=== PATIENT | male | born 1940 | race Hispanic/Latino ===

== ENCOUNTER 2019-05-15 08:25 | Observation (INO) | payer MEDICARE ==
[2019-05-12 12:01] LABS: BASOPHILS % 0.5 % (0.0-1.0); EOSINOPHILS # (AUTO) 0.1 (0.0-0.4); EOSINOPHILS % 1.1 % (0.0-6.0); HEMATOCRIT 45.6 % (38.2-49.6); HEMOGLOBIN 15.2 g/dL (14.0-18.0); LYMPHOCYTES # (AUTO) 1.8 (1.0-3.2); MEAN CORPUSCULAR HEMOGLOBIN 30.6 pg (28-32); MEAN CORPUSCULAR HGB CONC 33.3 g/dL (31-35); MEAN CORPUSCULAR VOLUME 91.9 fL (81-99); MONOCYTES # (AUTO) 0.9 (0.2-0.8); MONOCYTES % 10.3 % (4.4-11.3); NEUTROPHILS # (AUTO) 5.9 (2.1-6.9); NEUTROPHILS % 66.9 % (38.7-80.0); PLATELET COUNT 221 x10e3/uL (140-360); RED BLOOD COUNT 4.96 x10e6/uL (4.3-5.7); RED CELL DISTRIBUTION WIDTH 13.8 % (11.7-14.4)
--- NOTE | 2019-05-12 12:34 | Diagnostic Imaging Report ---
EXAM: CHEST 2 VIEWS DATE: 05/12/2019 11:43 AM INDICATION: Preoperative evaluation COMPARISON: None FINDINGS: The trachea is midline. The lungs are symmetrically expanded without evidence for large focal consolidation, pneumothorax, or significant pleural effusion. The cardiomediastinal silhouette and pulmonary vasculature are within normal limits. Degenerative changes noted of the visualized spine and shoulders. No acute osseous abnormality is identified. IMPRESSION: No acute cardio prominent process identified. Signed by: Dr. Onur Wei MD on 05/12/2019 12:31 PM
[~2019-05-15] VITALS: Ht 162.6 cm; Wt 67.1 kg
[~2019-05-15 08:25] MED LIST: CENTRUM SILVER1 EAC3 PO; FLOMAX0.4 MG PO; MYRBETRIQ50 MG PO; NORCO 5-325 TA1 EACH PO
--- OUTSIDE RECORDS SUMMARY | 2019-05-15 08:28 | XMS REPORT ---
Author Author [facility] Address Unknown Phone Unavailable Care Team Providers Care Sulfonator Operator Name Role Phone MARICHUY REYNOSO Unavailable Unavailable Problems This patient has no known problems. Allergies, Adverse Reactions, Alerts This patient has no known allergies or adverse reactions. Medications This patient has no known medications. Results Test Description Test Time Test Comments Text Results Atomic Results Result Comments CHEST 2 VIEWS 2019-05-12 12:30:00 [place] [address] Patient Name: SHENA ENAMORADO MR #: [id number] : 1940 Age/Sex: 79/M Req #: [id number] Adm Physician: Ordered by: MARICHUY REYNOSO MD Report #: [id number] Location: OR Room/Bed: Procedure: [id number] DX/CHEST 2 VIEWS Exam Date: 05/12/19 Exam Time: 1200 REPORT STATUS: Signed EXAM: CHEST 2 VIEWS DATE: 05/12/2019 11:43 AM INDICATION: Preoperative evaluation COMPARISON: None FINDINGS: The trachea is midline. The lungs are symmetrically expanded without evidence for large focal consolidation, pneumothorax, or significant pleural effusion. The cardiomediastinal silhouette and pulmonary vasculature are within normal limits. Degenerative changes noted of the visualized spine and shoulders. No acute osseous abnormality is identified. IMPRESSION: No acute cardio prominent process identified. Signed by: Dr. Onur Mahan MD on 05/12/2019 12:31 PM Dictated By: ONUR MAHAN MD [id number] Transcribed By: ANDRÉS on 05/12/19 1231 COPY TO: MARICHUY REYNOSO MD
[2019-05-15] MEDS ORDERED: GENTAMICIN 80MG/NS 100 ML 200 ML IV ONE (08:51)
[2019-05-15] MEDS ORDERED: SODIUM CHLORIDE 0.9% 1000ML 1,000 ML ONE (08:51)
[2019-05-15] MEDS ORDERED: CEFTRIAXONE SOD 1 GM/NS 50 ML 50 ML IV ONE (08:51)
[2019-05-15] MEDS ORDERED: FENTANYL CITRATE/PF 100MCG/2 ML INJ ONE (10:25)
[2019-05-15] MEDS ORDERED: MIDAZOLAM HCL 2 MG/2 ML VIAL ONE (10:25)
[2019-05-15] MEDS ORDERED: B&O 60MG R/S 60 MG SUPP PR ONE (10:49)
[2019-05-15] MEDS ORDERED: IOPAMIDOL 610MG/1ML 300 MG/ML VIAL IV ONE (10:50)
[2019-05-15] MEDS ORDERED: SEVOFLURANE INHAL SOLN 250 ML PEN BTL ONE (11:33)
[2019-05-15] MEDS ORDERED: LIDOCAINE HCL 2% LOCAL INJ 5 ML SDV VIAL INJ ONE (11:33)
[2019-05-15] MEDS ORDERED: DEXAMETHASONE SOD PHOS INJ 4 MG/ML VIAL ONE (11:33)
[2019-05-15] MEDS ORDERED: ONDANSETRON HCL INJ 2MG/ML 2ML 2 MG/ML VIAL ONE (11:33)
[2019-05-15] MEDS ORDERED: PROPOFOL IV EMULSION 10 MG/ML 20 ML VIAL ONE (11:33)
[2019-05-15] MEDS ORDERED: IOTHALAMATE MEGLUMINE 17.20% 250 ML BTL ONE (11:50)
[2019-05-15] MEDS ORDERED: DIPHENHYDRAMINE HCL 25 MG CAP PO PRN (13:00)
[2019-05-15] MEDS ORDERED: ACETAMINOPHEN/CODEINE 300MG - 30MG TAB PO PRN (13:00)
[2019-05-15] MEDS ORDERED: ONDANSETRON HCL INJ 2MG/ML 2ML 2 MG/ML VIAL IV PRN (13:00)
[2019-05-15] MEDS ORDERED: B&O 60MG R/S 60 MG SUPP PR PRN (13:00)
[2019-05-15] MEDS ORDERED: ACETAMINOPHEN 1000 MG/100 ML IV PRN (13:00)
[2019-05-15 14:15] VITALS: BP 155/72
[2019-05-15 14:37] LABS: BASOPHILS # (AUTO) 0.1 (0.0-0.1); BASOPHILS % 0.9 % (0.0-1.0); EOSINOPHILS # (AUTO) 0.1 (0.0-0.4); EOSINOPHILS % 1.9 % (0.0-6.0); HEMATOCRIT 47.3 % (38.2-49.6); HEMOGLOBIN 15.7 g/dL (14.0-18.0); LYMPHOCYTES # (AUTO) 2.2 (1.0-3.2); LYMPHOCYTES % 37.5 % (18.0-39.1); MEAN CORPUSCULAR HGB CONC 33.2 g/dL (31-35); MEAN CORPUSCULAR VOLUME 93.3 fL (81-99); MONOCYTES # (AUTO) 0.7 (0.2-0.8); MONOCYTES % 11.2 % (4.4-11.3); NEUTROPHILS # (AUTO) 2.8 (2.1-6.9); NEUTROPHILS % 48.3 % (38.7-80.0); PLATELET COUNT 206 x10e3/uL (140-360); RED BLOOD COUNT 5.07 x10e6/uL (4.3-5.7); RED CELL DISTRIBUTION WIDTH 13.6 % (11.7-14.4)
--- NOTE | 2019-05-15 14:39 | NUR ---
Received patient from PACU, s/p C/S with TURP and plasma button, bladder neck resection, Decker with CBI in place running, pinkish urine, a/ox3, IV line in place and fluids running. Call light within reach, denies any pains, bed in low locked position.
[2019-05-15 14:41] VITALS: BP 155/72
[2019-05-15 14:49] LABS: ANION GAP 10.3 mmol/L (8-16); BLOOD UREA NITROGEN 11 mg/dL (7-26); BUN/CREATININE RATIO 10 (6-25); CALCIUM 9.6 mg/dL (8.4-10.2); CARBON DIOXIDE 25 mmol/L (22-29); CHLORIDE 107 mmol/L (98-107); CREATININE, SERUM 1.05 mg/dL (0.72-1.25); EST GLOMERULAR FILTRATION RATE > 60 ML/MIN (60-); GLUCOSE 80 mg/dL (74-118); POTASSIUM 4.3 mmol/L (3.5-5.1); SODIUM 138 mmol/L (136-145)
[2019-05-15] MEDS: D5.45%NS/KCL 20MEQ 1,000 ML IV SCH ×2 (15:02→23:30)
[2019-05-15 16:00] VITALS: BP 142/86
[2019-05-15] MEDS: DOCUSATE SODIUM 100 MG CAP PO SCH (17:05)
[2019-05-15] MEDS: PHENAZOPYRIDINE HCL 100 MG TAB PO SCH (17:05)
[2019-05-15 20:00] VITALS: BP 120/79
[2019-05-15 21:30] VITALS: BP 120/79
--- NOTE | 2019-05-15 21:30 | NUR ---
PATIENT RESTING IN BED IN STABLE CONDITION, NO SIGNS OF DISTRESS NOTED. CBI IS IN PLACE AND BEING MONITORED CLOSELY, URINE IS YELLOW IN COLOR. PATIENT VOICES NO PAIN AT THIS TIME AND IV FLUIDS ARE RUNNING AT ORDERED RATE. BED IS IN LOWEST POSITION, BOTH SIDE RAILS ARE UP, CALL LIGHT IS WITHIN EASY REACH, WILL CONTINUE TO MONITOR.
[2019-05-16] VITALS: BP 147/89
[2019-05-16 03:39] VITALS: BP 133/80
[2019-05-16 06:30] LABS: BASOPHILS % 0.6 % (0.0-1.0); EOSINOPHILS # (AUTO) 0.2 (0.0-0.4); EOSINOPHILS % 2.2 % (0.0-6.0); HEMATOCRIT 44.2 % (38.2-49.6); HEMOGLOBIN 14.3 g/dL (14.0-18.0); LYMPHOCYTES # (AUTO) 1.4 (1.0-3.2); MEAN CORPUSCULAR HEMOGLOBIN 30.6 pg (28-32); MEAN CORPUSCULAR HGB CONC 32.4 g/dL (31-35); MEAN CORPUSCULAR VOLUME 94.6 fL (81-99); MONOCYTES # (AUTO) 0.8 (0.2-0.8); MONOCYTES % 10.8 % (4.4-11.3); NEUTROPHILS # (AUTO) 4.9 (2.1-6.9); NEUTROPHILS % 67.1 % (38.7-80.0); PLATELET COUNT 190 x10e3/uL (140-360); RED BLOOD COUNT 4.67 x10e6/uL (4.3-5.7); RED CELL DISTRIBUTION WIDTH 13.9 % (11.7-14.4)
[2019-05-16 06:45] LABS: ANION GAP 10.3 mmol/L (8-16); BLOOD UREA NITROGEN 10 mg/dL (7-26); BUN/CREATININE RATIO 11 (6-25); CALCIUM 8.9 mg/dL (8.4-10.2); CARBON DIOXIDE 25 mmol/L (22-29); CHLORIDE 105 mmol/L (98-107); EST GLOMERULAR FILTRATION RATE > 60 ML/MIN (60-); GLUCOSE 103 mg/dL (74-118); POTASSIUM 4.3 mmol/L (3.5-5.1); SODIUM 136 mmol/L (136-145)
[2019-05-16 07:51] VITALS: BP 155/68
[2019-05-16] MEDS: DOCUSATE SODIUM 100 MG CAP PO SCH ×2 (08:56→17:00)
[2019-05-16] MEDS: PHENAZOPYRIDINE HCL 100 MG TAB PO SCH ×3 (08:56→18:00)
--- NOTE | 2019-05-16 10:52 | NUR ---
H&P cc: urinary discomfort HPI: 79yoM, PCP Dr.C. Jeffery, developed urinary discomfort related to BPH, here for elective procedure on prostate, undertaken by . Now recovering with langley in place. PMH: B/L incarcerated inguinal hernia s/p repair, BPH PSHx: incarcerated hernia 2011, prostate? Allergies; see emr Fh/SH; single; no cigs meds see mAR ROS; no f/c/s/N/V/D/ARRIOLA/cp/sob/skin rash/back pain/dizziness/confusion v/s; revd PE tired appearing aniceric ns1s2; 3/6 systolic murmur soft nt nd Langley in place no e/t skin dry flat affect a&ox3; martinez labs/meds revd A/P: UTI- IV ceftriaxone BPH- s/p cystoscopy and TURP? flomax Prop: scd DIspo: d/c planning; Ferdinand Jj MD, PhD.
[2019-05-16] MEDS ORDERED: CEFTRIAXONE SOD 1 GM/NS 50 ML 50 ML IV SCH (11:00)
[2019-05-16] MEDS ORDERED: TAMSULOSIN HCL 0.4 MG CAP PO SCH (11:00)
--- NOTE | 2019-05-16 11:30 | NUR ---
DR REYNOSO STOPPED CBI.
[2019-05-16 11:31] VITALS: BP 158/81
[2019-05-16 15:37] VITALS: BP 133/84
--- NOTE | 2019-05-16 17:30 | NUR ---
DR KING HERE TO SEE PT AND DISCHARGE.
--- NOTE | 2019-05-16 18:36 | NUR ---
PT DISCHARGE HOME, PT WAS GIVEN HIS PRESCRIPTION, AND HE WAS EDUCATED ON HIS MEDICATION AND WAS ASKED TO FOLLOW UP WITH HIS PCP, AND UROLOGIST. IV SITE REMOVED, NO SWELLING NO REDNESS TO SITE.
--- NOTE | 2019-05-17 04:51 | NUR ---
D/C summary Principal Dx: UTI- IV ceftriaxone BPH- s/p cystoscopy and TURP? flomax Secondary Dx: Prop: scd DIspo: d/c planning; d./c home with langley f/u pcp 1 week and 2 weeks stable d/c>35mins Ferdinand Jj MD, PhD.
== END 2019-05-16 18:35 | disposition home or self-care (01) ==
LOC: OR 08:25 → INTOOBSV 12:52 → PACU V 12:52 → MED/SURG 13:52
PROVIDERS: ADMIT Internal Medicine; ATTEND Internal Medicine
DX: N40.0 Benign prostatic hyperplasia without lower urinary tract symptoms (principal); N39.0 Urinary tract infection, site not specified
CPT/HCPCS: 36415 ×3; 71046; 74420; 80048 ×2; 83735; 85025 ×3; 87086; 88305; 93005; C1758; G0378 ×2; J0696 ×2; J1100; J1580; J2001; J2250; J2405; J2704; J3010; J7030; Q9958; Q9967

== ENCOUNTER 2019-08-16 16:10 | Inpatient (IN) | payer MEDICARE, OTHER ==
[~2019-08-16] VITALS: Ht 162.6 cm; Wt 69.1 kg
--- OUTSIDE RECORDS SUMMARY | 2019-08-16 16:14 | XMS REPORT | Summary of Care ---
Author Author [facility] Organization [facility] Address Unknown Phone Unavailable Encounter MONICO Jefferson(PRINCESS) [id number] Date(s): 11/16/15 - 11/16/15 [facility] [address] [place] [address]- Discharge Disposition: Home or Self Care Attending Physician: Karan Casey MD Admitting Physician: Karan Casey MD Referring Physician: Niko Mcgarry MD Vital Signs 1 2 3 Most recent to oldest [Reference Range]: 162.56 cm (11/16/15 3:45 AM) Height 97.2 DegF (11/16/15 12:00 PM) 97.7 DegF (11/16/15 8:00 AM) 97.6 DegF (11/16/15 3:08 AM) Temperature Oral [96.4-99.1 DegF] 140/77 mmHg (11/16/15 12:00 PM) 134/73 mmHg (11/16/15 8:00 AM) 145/77 mmHg *HI* (11/16/15 3:08 AM) Blood Pressure [90-140/60-90 mmHg] 16 BRMIN (11/16/15 12:00 PM) 16 BRMIN (11/16/15 8:00 AM) 16 BRMIN (11/16/15 3:08 AM) Respiratory Rate [14-20 BRMIN] 79 bpm (11/16/15 12:00 PM) 75 bpm (11/16/15 8:00 AM) 73 bpm (11/16/15 3:08 AM) Peripheral Pulse Rate [60-100 bpm] 62.955 kg (11/16/15 3:45 AM) Weight 23.82 m2 (11/16/15 3:45 AM) Body Mass Index Problem List Condition Effective Dates Status Health Status Informan t Hernia, Resolved inguinal(Confirmed) Nocturia(Confirmed) Resolved Urinary Active frequency(Confirmed) Allergies, Adverse Reactions, Alerts Substance Reaction Severity Status NKDA Active Medications acetaminophen 650 mg, 2 tab, Route: PO, Drug form: TAB, Q4H, Dosing Weight 62.955, kg, PRN Abbey n 1-3/Temp > 100.4 F, Start date: 11/16/15 4:45:00 CDT, Duration: 30 day, Stop date: 12/16/15 4:44:00 CDT Notes: Do not exceed 4 gm/day. (Same as: Tylenol) Start Date: 11/16/15 Stop Date: 11/16/15 Status: Discontinued acetaminophen-hydrocodone 325 mg-5 mg oral tablet 2 tab, Route: PO, Drug Form: TAB, Dosing Weight 62.955, kg, Q4H, PRN Pain Score 7-10, Start date: 11/16/15 4:45:00 CDT, Duration: 30 day, Stop date: 12/16/15 4: 44:00 CDT Notes: (Same as: Beaver 325/5) Do not exceed 4gm/day of acetaminophen. Start Date: 11/16/15 Stop Date: 11/16/15 Status: Discontinued acetaminophen-hydrocodone 325 mg-5 mg oral tablet 1 tab, Route: PO, Drug Form: TAB, Dosing Weight 62.955, kg, Q4H, PRN Pain Score 4-6, Start date: 11/16/15 4:45:00 CDT, Duration: 30 day, Stop date: 12/16/15 4:4 4:00 CDT Notes: (Same as: Beaver 325/5) Do not exceed 4gm/day of acetaminophen. Start Date: 11/16/15 Stop Date: 11/16/15 Status: Discontinued Augmentin 875 mg oral tablet 875 mg = 1 tab, PO, Q12H, X 7 day, # 14 tab, 0 Refill(s) Start Date: 11/16/15 Stop Date: 11/23/15 Status: Ordered docusate 100 mg, 1 cap, Route: PO, Drug form: CAP, BID, Dosing Weight 62.955, kg, PRN Con stipation, Start date: 11/16/15 4:45:00 CDT, Duration: 30 day, Stop date: 4:44:00 CDT Notes: (Same as: Colace) (Do Not Crush) Start Date: 11/16/15 Stop Date: 11/16/15 Status: Discontinued finasteride 5 mg, 1 tab, Route: PO, Drug form: TAB, Daily, Dosing Weight 62.955, kg, Priorit y: STAT, Start date: 11/16/15 11:10:00 CDT, Duration: 30 day, Stop date: 6 9:00:00 CDT Notes: (Same as: Proscar) "Do Not Crush"Women of childbearing age should not tosha ch or handle broken tablets Start Date: 11/16/15 Stop Date: 11/16/15 Status: Discontinued finasteride 5 mg, 1 tab, Route: PO, Drug form: TAB, Daily, Dosing Weight 62.955, kg, Start d ate: 11/17/15 9:00:00 CDT, Duration: 30 day, Stop date: 12/16/15 9:00:00 CDT Notes: (Same as: Proscar) "Do Not Crush"Women of childbearing age should not tosha ch or handle broken tablets Start Date: 11/17/15 Stop Date: 11/16/15 Status: Canceled finasteride 5 mg oral tablet 5 mg, PO, Daily, # 30 tab, 0 Refill(s) Start Date: 11/16/15 Stop Date: 12/16/15 Status: Ordered Flomax 0.4 mg oral capsule 0.4 mg = 1 cap, PO, Daily, # 30 cap, 0 Refill(s) Start Date: 11/16/15 Stop Date: 12/16/15 Status: Ordered Myrbetriq 50 mg, PO, Daily, 0 Refill(s) Start Date: 11/16/15 Stop Date: 11/16/15 Status: Discontinued ondansetron 4 mg, 2 mL, Route: IVP, Drug form: INJ, Q6H, Dosing Weight 62.955, kg, PRN Nause a & Vomiting, Start date: 11/16/15 4:45:00 CDT, Duration: 30 day, Stop date: 12/16/15 4:44:00 CDT Notes: (Same as: Zofran) MEDICATION WASTE Product Size: 4 mgProduct Was yady: ___ mg Start Date: 11/16/15 Stop Date: 11/16/15 Status: Discontinued Saline Flush 0.9% 10 ml, Route: IVP, Drug Form: INJ, Dosing Weight 62.955, kg, PRN, PRN Line Flush , Start date: 11/16/15 4:45:00 CDT, Duration: 30 day, Stop date: 12/16/15 4:44:0 0 CDT Notes: (Same as: BD Posiflush) Start Date: 11/16/15 Stop Date: 11/16/15 Status: Discontinued sodium chloride 0.9% 1000 ml INJ 1,000 mL 1,000 mL, Rate: 100 ml/hr, Infuse over: 10 hr, Route: IV, Dosing Weight 62.955 k g, Total Volume: 1,000, Start date: 11/16/15 5:07:00 CDT, Duration: 30 day, Stop date: 12/16/15 5:06:00 CDT Start Date: 11/16/15 Stop Date: 11/16/15 Status: Discontinued Theragran-M 1 tab, Route: PO, Drug Form: TAB, Dosing Weight 62.955, kg, Daily, STAT, Start d ate: 11/16/15 11:10:00 CDT, Duration: 30 day, Stop date: 12/16/15 9:00:00 CDT Notes: (Same as:Thera-M, Theragran-M)WASTE: F/P - Black; E - Municipal Trash Bin Give with food. Start Date: 11/16/15 Stop Date: 11/16/15 Status: Discontinued Theragran-M 1 tab, Route: PO, Drug Form: TAB, Dosing Weight 62.955, kg, Daily, Start date: 0 11/17/15 9:00:00 CDT, Duration: 30 day, Stop date: 12/16/15 9:00:00 CDT Notes: (Same as:Thera-M, Theragran-M)WASTE: F/P - Black; E - Municipal Trash Bin Give with food. Start Date: 11/17/15 Stop Date: 9/14/16 Status: Canceled Results ELECTROLYTES Most recent to 1 2 oldest [Reference Range]: Sodium Lvl [135-145 136 mEq/L mEq/L] (11/16/15 2:31 PM) Potassium Lvl 4.6 mEq/L [3.5-5.1 mEq/L] (11/16/15 2:31 PM) Chloride Lvl [95-109 105 mEq/L mEq/L] (11/16/15 2:31 PM) CO2 [24-32 mEq/L] 24 mEq/L (11/16/15 2:31 PM) AGAP [10.0-20.0 11.6 mEq/L mEq/L] (11/16/15 2:31 PM) CHEM PANEL Most recent to 1 2 oldest [Reference Range]: Creatinine Lvl 1.43 mg/dL 1.65 mg/dL [0.50-1.40 mg/dL] *HI* *HI* (11/16/15 2:31 PM) (11/16/15 8:01 AM) eGFR 48 mL/min/1.73m2 1 40 mL/min/1.73m2 2 *NA* *NA* (11/16/15 2:31 PM) (11/16/15 8:01 AM) BUN [7-22 mg/dL] 31 mg/dL *HI* (11/16/15 2:31 PM) Glucose Lvl [70-99 117 mg/dL mg/dL] *HI* (11/16/15 2:31 PM) Calcium Lvl 8.7 mg/dL [8.5-10.5 mg/dL] (11/16/15 2:31 PM) 1Result Comment: The eGFR is calculated using the CKD-EPI formula. In most young, healthy individuals the eGFR will be >90 mL/min/1.73m2. The eGFR declines with age. An eGFR of 60-89 may be normal in some populations, particularly the elderly, for whom the CKD-EPI formula has not been extensively validated. Use of the eGFR is not recommended in the following populations: Individuals with unstable creatinine concentrations, including patients and those with serious co-morbid conditions. Patients with extremes in muscle mass or diet. The data above are obtained from the National Kidney Disease Education Program ( NKDEP) which additionally recommends that when the eGFR is used in patients with extremes of body mass index for purposes of drug dosing, the eGFR should be mul tiplied by the estimated BMI. 2Result Comment: The eGFR is calculated using the CKD-EPI formula. In most young, healthy individuals the eGFR will be >90 mL/min/1.73m2. The eGFR declines with age. An eGFR of 60-89 may be normal in some populations, particularly the elderly, for whom the CKD-EPI formula has not been extensively validated. Use of the eGFR is not recommended in the following populations: Individuals with unstable creatinine concentrations, including patients and those with serious co-morbid conditions. Patients with extremes in muscle mass or diet. The data above are obtained from the National Kidney Disease Education Program ( NKDEP) which additionally recommends that when the eGFR is used in patients with extremes of body mass index for purposes of drug dosing, the eGFR should be mul tiplied by the estimated BMI. HEMATOLOGY Most recent to 1 2 oldest [Reference Range]: Platelet [133-450 283 K/CMM K/CMM] (11/16/15 9:36 AM) PTT [22.9-35.8 29.8 seconds seconds] (11/16/15 9:36 AM) Immunizations No data available for this section Procedures Procedure Date Related Diagnosis Body Site Bilateral inguinal hernia repair1 Laser ablation of prostate 1with mesh Social History Social History Type Response Alcohol Never Smoking Status Never smoker; Exposure to T obacco Smoke None; Cigarette Smoking Last 365 Days No; Reg Smoking Cessation Counseli ng No Assessment and Plan Extracted from: Title: Clinical Document Author: Hi Lopez MD Da te: 11/16/15 D/c Dx urinary retention Obstruxitve uropathy R/o UTI Dispo Home F/u Dr Jenni Gilliam See recon Diet: Regualr diet 75 yr old came in with 3 days of decreas ed urianry strema and urinary retention. Admitted ehre for assistance in langley placement. Difficulty in insertion likley related to scarring Cr 1.7--> 1.4 with IVfs and langley placement Langley placed by F/u with Dr Arteaga Empiric abx started Extracted from: Title: Urology Author: Abner Berger MD Date: 11/16/15 Impression and Plan Acute urinary retention, bladder neck contracture - 18fr langley placed after urethral dilat ion - Continue langley as outpatient, OK to D/ C if Cr improves - Keep scheduled followup with Dr. Robin jc on 11/21 - Urine culture sent, treat if positive Extracted from: Title: Clinical Document Author: Niko Mcgarry MD Date: 11/16/15 PATIENT NAME: SHENA ENAMORADO ATTENDING PHYSICIAN: HEIDI CORDERO DATE OF ADMISSION: 11/16/15 * * * CC: URINARY RETENTION REASON FOR ADMISSION: URINARY RETENTION HISTORY OF PRESENT ILLNESS: 75 yo man with h/o BPH and urinary reten tion s/p laser vaporization of the prostate 02/10/15 presents from [facility] ED with urinary retention. Langley catheterization attempted at outside ED unsuccessful on 4 attempts. Urology consulted from outsided ED and advised to transfer to [facility] for urologic intervention. Creatinine obtained there was 1.65, reportedly increased from baseline. Transferring ED physician also noted pt has a resultant UTI. Dr Vicente Resendiz consulted, covering urology staff will see pt here at [facility]. PAST MEDICAL HISTORY: as per HPI. h/o UTI's. PAST SURGICAL HISTORY: bowel resection, laser vaporization of prostate FAMILY HISTORY: noncontributory ALLERGIES: Allergies (1) ActiveReaction NKDANone documented HOME MEDICATIONS: see medical reconciliation list SOCIAL HISTORY: no alcohol, drug use or smoking REVIEW OF SYSTEMS: 12 point review of systems negative except that detailed in above HPI PHYSICAL EXAMINATION: VitalsTmp(F)[id number] 11/15 03:0897.727906/7716------ 24 Hr Tmax: 97.6F (36.44c) at 11/15 03:0 8Vital Signs are the last 5 in the past 48 hours. I&ORecordInOutBal 24hr Tot 0 0 0 24hr Tot 0 0 0 GENERAL: in no apparent distress at this time. HEENT: EOMI NECK: supple, no jugular venous distention, no masses, no bruits CARDIOVASCULAR: regular rate and rhythm, s1 and s2 present, no murmurs, rubs or gallops LUNGS: clear to auscultation bilaterally, no wheezes, rales or rhonchi. GASTROINTESTINAL: soft, mild suprapubic tenderness to palpation, non-distended positive bowel sounds in all four quadrants, no fluid wave appreciated EXTREMITIES: no clubbing, cyanosis or edema, pulses 2+ bilaterally and symmetric. 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 URINARY RETENTION 2. YUE 3. UTI PLAN: 1. Urology consulted, will catheterize p t. pain control with po meds tolerated thus far. 2. recheck AM BMP, start IVF's after cat heter placed. Nephrology consultation if creatinine does not improve with IVF's 3. send urine for culture and administer rocephin 1g IV. admit i1
--- OUTSIDE RECORDS SUMMARY | 2019-08-16 16:14 | XMS REPORT | Summary of Care ---
Author Author [facility] ton Organization [facility] [place] Address Unknown Phone Unavailable Encounter MONICO Jefferson(PRINCESS) [id number] Date(s): 02/13/18 - 02/13/18 [facility] [place] [address] [place] [address]- Discharge Disposition: Home or Self Care Attending Physician: Dieudonne Marte MD Referring Physician: Praful Jeffery MD Vital Signs Most recent to 1 oldest [Reference Range]: Height 162.56 cm (02/13/18 10:25 AM) Blood Pressure 144/81 mmHg [90-140/60-90 mmHg] *HI* (02/13/18 10:25 AM) Peripheral Pulse 76 bpm Rate [60-100 bpm] (02/13/18 10:25 AM) Weight 71.023 kg (02/13/18 10:25 AM) Body Mass Index 26.88 m2 (02/13/18 10:25 AM) Problem List Condition Effective Dates Status Health Status Informan t Acute 11/24/13 Resolved sinusitis(Confirmed) Arthropathy, Resolved unspecified(Confirme d) BPH with Resolved obstruction/lower urinary tract symptoms(Confirmed) Bladder neck 12/23/15 Resolved obstruction(Confirme d) Hematuria(Confirmed) Resolved Cataract(Confirmed) Resolved Functional digestive Resolved disorder(Confirmed) Hernia, Resolved inguinal(Confirmed) Nocturia(Confirmed) Resolved Seasonal Resolved allergies(Confirmed) Urinary Active frequency(Confirmed) UTI (urinary tract Resolved infection)(Confirmed ) Allergies, Adverse Reactions, Alerts No Known Medication Allergies Medications Claritin Daily, 0 Refill(s) Start Date: 02/13/18 Status: Ordered Results No data available for this section Immunizations No data available for this section Procedures Procedure Date Related Diagnosis Body Site Status Complex uroflowmetry 05/08/16 Completed Cystoscopy 12/2015 Completed Bilateral inguinal hernia repair1 Completed Laser ablation of prostate Completed 1with mesh Social History Social History Type Response Substance Abuse Use: None. Alcohol Never Smoking Status Never smoker; Exposure to T obacco Smoke None; Cigarette Smoking Last 365 Days No; Reg Smoking Cessation Counseli ng No entered on: 08/28/18 Assessment and Plan No data available for this section
--- OUTSIDE RECORDS SUMMARY | 2019-08-16 16:14 | XMS REPORT | Summary of Care ---
Author Organization Unknown Address Unknown Phone Unavailable Encounter [facility] Encntr_alisteven(PRINCESS) [id number] Date(s): 03/12/14 - 03/12/14 [facility] Outpatient Imaging - [address] [address] [place] Discharge Disposition: Home Physician Attending: Praful Jeffery MD Reason for Visit 608.89 - MALE GENITAL DI Problem List No data available for this section Allergies, Adverse Reactions, Alerts No data available for this section Medications No data available for this section Medications Administered During Your Visit No data available for this section Immunizations No data available for this section
--- OUTSIDE RECORDS SUMMARY | 2019-08-16 16:14 | XMS REPORT | Continuity of Care Document ---
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 Name Role Phone PageFair Information Ensogo Unavailable Un available Problems Problem Status Onset Date Classification Date Reported Comments Source UNK Active 0 04/11/2016 [facility] Bladder neck obstruction (disorder) Resolved 12/23/2015 Problem 01/24/2019 [facility] URETHRAL OBSTRUCTION, KIDNEY STONE Active 11/16/2015 [facility] URINARY RETENTION Active 11/16/2015 [facility] Acute sinusitis (disorder) Res olved 11/24/2013 Problem 01/24/2019 [facility] Arthropathy (disorder) Resolved Problem 01/24/2019 [facility] 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) Resolved Pr oblem 01/24/2019 [facility] Blood in urine (finding) Resol gordon Problem [facility] Cataract (disorder) Resolved Problem 01/24/2019 [facility] Functional disorder of gastrointestinal tract (disorder) Resolved Pr oblem 01/24/2019 [facility] Hiatal hernia (disorder) Resol gordon [facility] [place] Nocturia (finding) Resolved Problem 01/24/2019 [facility] [place] Seasonal allergy (disorder) Re solved Problem [facility] Increased frequency of urination (finding) [facility] disease (disorder) Resolved Problem 01/24/2019 [facility] GROSS HEMATURIA Active [facility] ENLARGED PROSTATE WITH LOWER URINARY TRA Active [facility] CALCULUS OF KIDNEY Active [facility] RETENTION OF URINE, UNSPECIFIED Active [facility] Medications Medication Details Route Status Patient Instructions Ordering Provider Order Date Source 24 HR mirabegron 50 MG Extended Release Tablet [Myrbetriq] 50 mg = 1 tab, PO, Daily, # 90 tab, 3 Re fill(s), Pharmacy: [facility]/pharmacy #[id number] Active 03/03/2018 [facility] Claritin Daily, 0 Refill(s) Active 02/13/2018 [facility] glycopyrrolate (ANES) Route: I V, Drug form: INJ, ONCE, Stop date: 04/20/16 9:31:00 MACHINES TECHNICIAN Inactive 04/20/2016 [facility] neostigmine (ANES) Route: IV, Drug form: INJ, ONCE, Stop date: 04/20/16 9:31:00 MACHINES TECHNICIAN Inactive 04/20/2016 [facility] tramadol hydrochloride 50 MG Oral Tablet 50 mg = 1 tab, PO, Q6H, PRN Pain Score 4-6, X 7 day, # 30 tab, 0 Refill(s) Active 04/20/2016 [facility] Phenazopyridine hydrochloride 100 MG Ora l Tablet [Pyridium] 100 mg = 1 tab, PO, TID, PRN Dysuria, X 5 day, # 15 tab, 0 Refill(s) Active 04/20/2016 [facility] Hyoscyamine Sulfate 0.125 MG Sublingual Tablet [Levsin ] 0.125 mg = 1 tab, SL, Q4H, PRN Bladder Spasm, # 30 tab, 0 Refill(s) Active 04/20/2016 [facility] Ciprofloxacin 500 MG Oral Tablet [Cipro] 500 mg = 1 tab, PO, Q12H, X 7 day, # 14 tab, 0 Refill(s) Active 04/20/2016 [facility] ondansetron (ANES) Route: IV, Drug form: INJ, ONCE, Stop date: 04/20/16 8:57:00 MACHINES TECHNICIAN Inactive 04/20/2016 [facility] dexamethasone (ANES) Route: IV , Drug form: INJ, ONCE, Stop date: 04/20/16 8:57:00 MACHINES TECHNICIAN Inactive 04/20/2016 [facility] fentaNYL (ANES) Route: IV, Jimmie g form: INJ, ONCE, Stop date: 04/20/16 8:47:00 MACHINES TECHNICIAN Inactive 04/20/2016 [facility] lidocaine (ANES) Route: IV, Dr ug form: INJ, ONCE, Stop date: 04/20/16 8:47:00 MACHINES TECHNICIAN Inactive 04/20/2016 [facility] propofol (ANES) Route: IV, Jimmie g form: INJ, ONCE, Stop date: 04/20/16 8:47:00 MACHINES TECHNICIAN Inactive 04/20/2016 [facility] midazolam (ANES) Route: IV, Dr ug form: SOLN, ONCE, Stop date: 04/20/16 8:47:00 MACHINES TECHNICIAN Inactive 04/20/2016 [facility] rocuronium (ANES) Route: IV, D rug form: INJ, ONCE, Stop date: 04/20/16 8:47:00 MACHINES TECHNICIAN Inactive 04/20/2016 [facility] ciprofloxacin (ANES) Route: IV , Drug form: INJ, ONCE, Stop date: 04/20/16 8:47:00 MACHINES TECHNICIAN Inactive 04/20/2016 [facility] LR 1000 mL INJ (ANES) Route: I V, Total Volume: 1,000, Start date: 04/20/16 7:56:00 MACHINES TECHNICIAN, Stop date: 04/20/16 8:56:00 MACHINES TECHNICIAN Inactive 04/20/2016 [facility] Albuterol 0.833 MG/ML / Ipratropium Brom alma 0.167 MG/ML Inhalant Solution Notes: (Same as: Cristi) Inactive 04/20/2016 [facility] Calcium Chloride 0.0014 MEQ/ML / Potassi um Chloride 0.004 MEQ/ML / Sodium Chloride 0.103 MEQ/ML / Sodium Lactate 0.028 MEQ/ML Injectable Solution 1,000 mL, Rate: 25 ml/hr, Infuse over: 4 0 hr, Route: IV, Dosing Weight 68.955 kg, Total Volume: 1,000, Start date: 04/20/16 7:27:00 MACHINES TECHNICIAN, Duration: 1 day, Stop date: 04/21/16 7:26:00 MACHINES TECHNICIAN Inactive 04/20/2016 [facility] Sodium Chloride 0.154 MEQ/ML Injectable Solution 500 mL, Rate: 25 ml/hr, Infuse over: 20 hr, Route: IV, Dosing Weight 68.955 kg, Total Volume: 500, Start date: 04/20/16 7:27:00 MACHINES TECHNICIAN, Duration: 1 day, Stop date: 04/21/16 7:26:00 MACHINES TECHNICIAN Inactive 04/20/2016 [facility] Kenalog-10 Notes: (Same As: Riaz nalog-10) Inactive 04/20/2016 [facility] Kenalog-10 Notes: (Same As: Riaz nalog-10) No Longer Active 04/12/2016 [facility] lidocaine (ANES) Route: IV, Dr ug form: INJ, ONCE, Stop date: 12/26/15 14:31:00 CDT Inactive 12/26/2015 [facility] ondansetron (ANES) Route: IV, Drug form: INJ, ONCE, Stop date: 12/26/15 14:31:00 CDT Inactive 12/26/2015 [facility] propofol (ANES) Route: IV, Jimmie g form: INJ, ONCE, Stop date: 12/26/15 14:31:00 CDT Inactive 12/26/2015 [facility] fentaNYL (ANES) Route: IV, Jimmie g form: INJ, ONCE, Stop date: 12/26/15 14:31:00 CDT Inactive 12/26/2015 [facility] ciprofloxacin (ANES) (ANES) Ro shinnecock: IV, Drug form: INJ, Start date: 12/26/15 13:43:00 CDT, Stop date: 12/26/15 14:43:00 CDT Inactive 12/26/2015 [facility] LR 1000 mL INJ (ANES) Route: I V, Total Volume: 1,000, Start date: 12/26/15 13:43:00 CDT, Stop date: 12/26/15 14:43:00 CDT Inactive 12/26/2015 [facility] Albuterol 0.833 MG/ML / Ipratropium Brom alma 0.167 MG/ML Inhalant Solution 3 mL, Route: NEB, Dosing Weight 66.364, kg, ONCE, STAT, Start date: 12/26/15 12:15:00 CDT, Stop date: 12/26/15 12:15:00 CDT Inactive 12/26/2015 [facility] Sodium Chloride 0.154 MEQ/ML Injectable Solution 500 mL, Rate: 25 ml/hr, Infuse over: 20 hr, Route: IV, Dosing Weight 66.364 kg, Total Volume: 500, Start date: 12/26/15 12:15:00 CDT, Duration: 30 day, Stop date: 01/25/16 12:14:00 MACHINES TECHNICIAN Inactive 12/26/2015 [facility] Calcium Chloride 0.0014 MEQ/ML / Potassi um Chloride 0.004 MEQ/ML / Sodium Chloride 0.103 MEQ/ML / Sodium Lactate 0.028 MEQ/ML Injectable Solution 1,000 mL, Rate: 25 ml/hr, Infuse over: 4 0 hr, Route: IV, Dosing Weight 66.364 kg, Total Volume: 1,000, Start date: 12/26/15 12:15:00 CDT, Duration: 30 day, Stop date: 01/25/16 12:14:00 MACHINES TECHNICIAN Inactive 12/26/2015 [facility] 24 HR mirabegron 50 MG Extended Release Tablet [Myrbetriq] 50 mg = 1 tab, PO, Daily, # 30 tab, 0 Refill(s) Active 12/23/2015 [facility] Finasteride Notes: (Same as: Ayesha ag) "Do Not Crush" Women of childbearing age should not touch or handle broken tablets No Longer Active 11/17/2015 [facility] Theragran-M Notes: (Same as:[facility]) WASTE: F/P - Black; E - Municipal Trash Bin Give with food. No Longer Active 11/17/2015 [facility] Tamsulosin hydrochloride 0.4 MG Oral Capsule [Flomax] 0.4 mg = 1 cap, PO, Daily, # 30 cap, 0 Refill(s) Active 11/16/2015 [facility] Finasteride Notes: (Same as: Ayesha ag) "Do Not Crush" Women of childbearing age should not touch or handle broken tablets Inactive 11/16/2015 [facility] Theragran-M Notes: (Same as:[facility]) WASTE: F/P - Black; E - Municipal Trash Bin Give with food. Inactive 11/16/2015 [facility] finasteride 5 mg oral tablet 5 mg, PO, Daily, # 30 tab, 0 Refill(s) Active 11/16/2015 [facility] Amoxicillin 875 MG / Clavulanate 125 MG Oral Tablet [Augmentin 875-mg] 875 mg = 1 tab, PO, Q12H, X 7 day, # 14 tab, 0 Refill(s) Active 11/16/2015 [facility] Sodium Chloride 0.154 MEQ/ML Injectable Solution 1,000 mL, Rate: 100 ml/hr, Infuse over: 10 hr, Route: IV, Dosing Weight 62.955 kg, Total Volume: 1,000, Start date: 11/16/15 5:07:00 CDT, Duration: 30 day, Stop date: 12/16/15 5:06:00 CDT Inactive 11/16/2015 [facility] Saline Flush 0.9% Notes: (Same as: BD Posiflush) Inactive 11/16/2015 [facility] Acetaminophen 325 MG / Hydrocodone Cody trate 5 MG Oral Tablet Notes: (Same as: [place] 325/5) Do not ex ceed 4gm/day of acetaminophen. Inactive 11/16/2015 [facility] Docusate Notes: (Same as: Cola ce) (Do Not Crush) Inactive 11/16/2015 [facility] Ondansetron Notes: (Same as: Talat blackburn) MEDICATION WASTE Product Size: 4 mg Product Wasted: ___ mg Inactive 11/16/2015 [facility] Acetaminophen Notes: Do not ex ceed 4 gm/day. (Same as: Tylenol) Inactive 11/16/2015 [facility] Myrbetriq 50 mg, PO, Daily, 0 Refill(s) Inactive 11/16/2015 [facility] Phenergan 12.5 mg, Route: IVPB , ONCE, Dosing Weight 68.182, kg, PRN Nausea & Vomiting, Start date: 02/10/15 13:03:00, Stop date: 03/12/15 13:02:00 Inactive 02/10/2015 [facility] Reglan 10 mg, Route: IVP, Drug form: INJ, ONCE, Dosing Weight 68.182, kg, Start date: 02/10/15 12:31:00, Stop date: 02/10/15 12:31:00 Inactive 02/10/2015 [facility] Ondansetron 4 mg, Route: IVP, ONCE, Dosing Weight 68.182, kg, PRN Nausea & Vomiting, Start date: 02/10/15 11:38:00 Inactive 02/10/2015 [facility] Acetaminophen 1,000 mg, Route: IVPB, Drug form: INJ, ONCE, Dosing Weight 68.182, kg, PRN Pain Score 1-3, Start date: 02/10/15 11:38:00, Duration: 1 doses or times, Stop date: Limited # of times Inactive 02/10/2015 [facility] Flumazenil 0.2 mg, Route: IVP, PRN, Dosing Weight 68.182, kg, PRN Benzodiazepine Reversal, Initial dose, Start date: 02/10/15 11:38:00, Duration: 30 day, Stop date: 03/12/15 11:37:00 Inactive 02/10/2015 [facility] Naloxone 0.04 mg, Route: IVP, Q2MIN, Dosing Weight 68.182, kg, PRN Narcotic Reversal, Start date: 02/10/15 11:38:00, Duration: 8 doses or times, Stop date: Limited # of times Inactive 02/10/2015 [facility] Fentanyl 50 microgram, Route: IVP, Q5Min, Dosing Weight 68.182, kg, PRN Pain Score 7-10, Start date: 02/10/15 11:38:00, Duration: 2 doses or times, Stop date: Limited # of times Inactive 02/10/2015 [facility] Hydromorphone 0.5 mg, Route: I BACKHOE OPERATOR, Q5Min, Dosing Weight 68.182, kg, PRN Pain Score 7-10, Start date: 02/10/15 11:38:00, Duration: 4 doses or times, Stop date: Limited # of times Inactive 02/10/2015 [facility] Meperidine 12.5 mg, Route: IVP , Q30Min, Dosing Weight 68.182, kg, PRN Other -See Comment, For shivering, Start date: 02/10/15 11:38:00, Duration: 2 doses or times, Stop date: Limited # of times Inactive 02/10/2015 [facility] Oxycodone Hydrochloride 1 MG/ML Oral Solution 5 mg, Route: NG, Drug form: LIQ, Q4H, Dosing Weight 68.182, kg, PRN Pain Score 4-6, Start date: 02/10/15 11:38:00, Duration: 30 day, Stop date: 03/12/15 11:37:00 Inactive 02/10/2015 [facility] Phenazopyridine hydrochloride 100 MG Ora l Tablet [Pyridium] 100 mg = 1 tab, PO, TID, PRN Dysuria, X 2 day, # 6 tab, 0 Refill(s) No Longer Active 02/10/2015 [facility] Acetaminophen 300 MG / Codeine Phosphate 30 MG Oral Tablet [Tylenol with Codeine #3] 1 - 2 tab, PO, Q4H, PRN Pain, X 2 day, # 20 tab, 0 Refill(s) No Longer Active 02/10/2015 [facility] oxybutynin 10 mg oral tablet, extended release 10 mg = 1 tab, PO, Daily, # 30 tab, 1 Refill(s) Active 02/10/2015 [facility] Morphine 2 mg, Route: IVP, Q3H , Dosing Weight 68.182, kg, PRN Pain Score 1-3, Start date: 02/10/15 9:53:00, Duration: 30 day, Stop date: 03/12/15 9:52:00 Inactiv e 02/10/2015 [facility] Acetaminophen 325 MG / Hydrocodone Cody trate 5 MG Oral Tablet 1 tab, Route: PO, Dosing Weight 68.182, kg, Q4H, PRN Pain Score 4-6, Start date: 02/10/15 9:53:00, Duration: 30 day, Stop date: 03/12/15 9:52:00 Inactive 02/10/2015 [facility] Calcium Chloride 0.0014 MEQ/ML / Potassi um Chloride 0.004 MEQ/ML / Sodium Chloride 0.103 MEQ/ML / Sodium Lactate 0.028 MEQ/ML Injectable Solution 1,000 mL, Rate: 25 ml/hr, Infuse over: 4 0 hr, Route: IV, Dosing Weight 68.182 kg, Total Volume: 1,000, Start date: 02/10/15 6:34:00, Duration: 30 day, Stop date: 03/12/15 6:33:00 Inactive 02/10/2015 [facility] Diphenhydramine Hydrochloride 25 MG Oral Tablet [Benadryl] 25 mg = 1 tab, PO, TID, PRN Allergic carli ction, 0 Refill(s) Active 02/02/2015 [facility] Allergies, Adverse Reactions, Alerts Substance Category Reaction Severity Reaction type Status Date Reported Comments Source No Known Medication Allergies Assertion Drug aller gy [facility] Group Immunizations No Data Provided for This Section Results Order Name Results Value Reference Range Date Interpretation Comments Source ELECTROLYTES AGAP 12.8 10.0 - 20.0 04/20/2016 [facility] ELECTROLYTES eGFR 53 04/20/2016 Result Comment: The eGFR is calculated using the [...] from the National Kidney Disease Education Program (NKDEP) which additionally recommends that when the eGFR is used in patients with extremes of body mass index for purposes of drug dosing, the eGFR should be multiplied by the estimated BMI. [facility] ELECTROLYTES Potassium Lvl 3.8 3.5 - 5.1 04/20/2016 [facility] ELECTROLYTES CO2 24 24 - 32 04/20/2016 [facility] ELECTROLYTES Chloride Lvl 104 95 - 109 04/20/2016 [facility] ELECTROLYTES Calcium Lvl 8.8 8.5 - 10.5 04/20/2016 [facility] ELECTROLYTES BUN 15 7 - 22 04/20/2016 [facility] ELECTROLYTES Creatinine Lvl 1.3 0 0.50 - 1.40 04/20/2016 [facility] ELECTROLYTES Sodium Lvl 137 135 - 145 04/20/2016 [facility] ELECTROLYTES Glucose Lvl 111 70 - 99 04/20/2016 [facility] Monocytes # 1.5 0.0 - 0.8 04/20/2016 [facility] Microcyte 1+ *ABN* (04/20/16 6:54 AM) None Seen 04/20/2016 [facility] Monocytes 10.7 2.0 - 12.0 04/20/2016 [facility] Segs 81.0 45.0 - 75.0 04/20/2016 [facility] Lymphocytes # 1.1 1.0 - 5.5 04/20/2016 [facility] Lymphocytes 8.0 20.0 - 40.0 04/20/2016 [facility] Segs-Bands # 11.3 1.5 - 8.1 04/20/2016 [facility] Basophils 0.3 0.0 - 1.0 04/20/2016 [facility] MPV 7.2 7.4 - 10.4 04/20/2016 [facility] WBC 14.0 3.7 - 10.4 04/20/2016 [facility] Hct 34.0 42.0 - 54.0 04/20/2016 [facility] Hgb 11.0 14.0 - 18.0 04/20/2016 [facility] RBC 4.38 4.70 - 6.10 04/20/2016 [facility] Platelet 288 133 - 450 04/20/2016 [facility] RDW 16.6 11.5 - 14.5 04/20/2016 [facility] HEMATOLOGY MCHC 32.3 32.0 - 36.0 04/20/2016 [facility] HEMATOLOGY MCH 25.0 27.0 - 31.0 04/20/2016 [facility] HEMATOLOGY MCV 77.5 80.0 - 94.0 04/20/2016 [facility] URINE AND STOOL UA Urobilinogen <=1.0 mg/dL 0.1 - 1.0 04/11/2016 [facility] URINE AND STOOL UA Turbidity Marked *ABN* (04/11/16 3:12 PM) Clear 04/11/2016 [facility] URINE AND STOOL UA Spec Grav 1.016 <=1.030 04/11/2016 [facility] URINE AND STOOL UA pH 6.0 5.0 - 8.0 04/11/2016 [facility] URINE AND STOOL UA Protein 100 mg/dL Negative mg/dL 04/11/2016 [facility] URINE AND STOOL UA Ketones Negative mg/dL Negative mg/dL 04/11/2016 [facility] URINE AND STOOL UA RBC >182 0 - 2 04/11/2016 [facility] URINE AND STOOL UA Glucose Negative mg/dL Negative mg/dL 04/11/2016 [facility] URINE AND STOOL UA WBC 98 0 - 5 04/11/2016 [facility] URINE AND STOOL UA Sq Epi None Seen 04/11/2016 [facility] URINE AND STOOL UA Nitrite Negative (04/11/16 3:12 PM) Negative 04/11/2016 [facility] URINE AND STOOL UA Leuk Est Small *ABN* (04/11/16 3:12 PM) Negative 04/11/2016 [facility] URINE AND STOOL UA Bili Negative *NA* (04/11/16 3:12 PM) Negative 04/11/2016 [facility] URINE AND STOOL UA Blood Large *ABN* (04/11/16 3:12 PM) Negative 04/11/2016 [facility] URINE AND STOOL UA Mucus Few /LPF None Seen /LPF 04/11/2016 [facility] URINE AND STOOL UA Color Red 04/11/2016 [facility] URINE AND STOOL UA Bacteria Occasional /HPF None Seen /HPF 04/11/2016 [facility] ELECTROLYTES AGAP 10.6 10.0 - 20.0 12/23/2015 [facility] ELECTROLYTES Calcium Lvl 8.9 8.5 - 10.5 12/23/2015 [facility] ELECTROLYTES BUN 13 7 - 22 12/23/2015 [facility] ELECTROLYTES Glucose Lvl 116 70 - 99 12/23/2015 [facility] ELECTROLYTES CO2 26 24 - 32 12/23/2015 [facility] ELECTROLYTES Sodium Lvl 138 135 - 145 12/23/2015 [facility] ELECTROLYTES Potassium Lvl 3.6 3.5 - 5.1 12/23/2015 [facility] ELECTROLYTES Chloride Lvl 105 95 - 109 12/23/2015 [facility] ELECTROLYTES Creatinine Lvl 1.3 0 0.50 - 1.40 12/23/2015 [facility] ELECTROLYTES eGFR 53 12/23/2015 Result Comment: The eGFR is calculated using the [...] from the National Kidney Disease Education Program (NKDEP) which additionally recommends that when the eGFR is used in patients with extremes of body mass index for purposes of drug dosing, the eGFR should be multiplied by the estimated BMI. [facility] HEMATOLOGY MCV 84.4 80.0 - 94.0 12/23/2015 [facility] Hct 36.0 42.0 - 54.0 12/23/2015 [facility] RBC 4.26 4.70 - 6.10 12/23/2015 [facility] HEMATOLOGY WBC 6.9 3.7 - 10.4 12/23/2015 [facility] Hgb 12.1 14.0 - 18.0 12/23/2015 [facility] MCH 28.3 27.0 - 31.0 12/23/2015 [facility] MCHC 33.5 32.0 - 36.0 12/23/2015 [facility] Platelet 268 133 - 450 12/23/2015 [facility] MPV 7.2 7.4 - 10.4 12/23/2015 [facility] RDW 14.4 11.5 - 14.5 12/23/2015 [facility] HEMATOLOGY Basophils 0.6 0.0 - 1.0 12/23/2015 [facility] HEMATOLOGY Lymphocytes # 2.0 1.0 - 5.5 12/23/2015 [facility] HEMATOLOGY Segs-Bands # 4.3 1.5 - 8.1 12/23/2015 [facility] HEMATOLOGY Monocytes # 0.6 0.0 - 0.8 12/23/2015 [facility] HEMATOLOGY Lymphocytes 29.1 20.0 - 40.0 12/23/2015 [facility] HEMATOLOGY Segs 62.0 45.0 - 75.0 12/23/2015 [facility] HEMATOLOGY Eosinophils 0.3 0.0 - 4.0 12/23/2015 [facility] HEMATOLOGY Monocytes 8.0 2.0 - 12.0 12/23/2015 [facility] HEMATOLOGY PT 14.2 12.0 - 14.7 12/23/2015 [facility] HEMATOLOGY PTT 31.4 22.9 - 35.8 12/23/2015 [facility] HEMATOLOGY INR 1.08 0.85 - 1.17 12/23/2015 [facility] URINE AND STOOL UA Urobilinogen <=1.0 mg/dL 0.1 - 1.0 12/23/[address] [facility] [address] URINE AND STOOL UA Sq Epi None Seen 12/23/2015 [facility] URINE AND STOOL UA Color Red 12/23/2015 [facility] URINE AND STOOL UA Mucus Few /LPF None Seen /LPF 12/23/2015 [facility] URINE AND STOOL UA WBC 150 0 - 5 12/23/2015 [facility] URINE AND STOOL UA [place] Yeast Occasional /HPF None Seen /HPF 12/23/[address] [facility] [address] URINE AND STOOL UA RBC >182 0 - 2 12/23/2015 [facility] URINE AND STOOL UA Protein 100 mg/dL Negative mg/dL 12/23/2015 [facility] URINE AND STOOL UA Blood Large *ABN* (12/23/15 12:24 PM) Negative 12/23/2015 [facility] URINE AND STOOL UA Ketones Trace mg/dL Negative mg/dL 12/23/[address] [facility] [address] URINE AND STOOL UA Bili Negative *NA* (12/23/15 12:24 PM) Negative 12/23/2015 [facility] URINE AND STOOL UA Glucose Negative mg/dL Negative mg/dL 12/23/[address] [facility] [address] URINE AND STOOL UA Spec Grav 1.015 <=1.030 12/23/2015 [facility] URINE AND STOOL UA Turbidity Slight *ABN* (12/23/15 12:24 PM) Clear 12/23/2015 [facility] URINE AND STOOL UA pH 6.0 5.0 - 8.0 12/23/2015 [facility] URINE AND STOOL UA Nitrite Negative (12/23/15 12:24 PM) Negative 12/23/2015 [facility] URINE AND STOOL UA Leuk Est Moderate *ABN* (12/23/15 12:24 PM) Negative 12/23/2015 [facility] CHEM PANEL eGFR 48 11/16/2015 Result Comment: The eGFR is calculated using the [...] from the National Kidney Disease Education Program (NKDEP) which additionally recommends that when the eGFR is used in patients with extremes of body mass index for purposes of drug dosing, the eGFR should be multiplied by the estimated BMI. [facility] CHEM PANEL Potassium Lvl 4.6 3.5 - 5.1 11/16/2015 [facility] CHEM PANEL Chloride Lvl 105 95 - 109 11/16/2015 [facility] CHEM PANEL Creatinine Lvl 1.43 0.50 - 1.40 11/16/2015 [facility] CHEM PANEL BUN 31 7 - 22 11/16/2015 [facility] CHEM PANEL AGAP 11.6 10.0 - 20.0 11/16/2015 [facility] CHEM PANEL CO2 24 24 - 32 11/16/2015 [facility] CHEM PANEL Calcium Lvl 8.7 8.5 - 10.5 11/16/2015 [facility] CHEM PANEL Sodium Lvl 136 135 - 145 11/16/2015 [facility] CHEM PANEL Glucose Lvl 117 70 - 99 11/16/2015 [facility] HEMATOLOGY Platelet 283 133 - 450 11/16/2015 [facility] HEMATOLOGY PTT 29.8 22.9 - 35.8 11/16/2015 [facility] CHEM PANEL eGFR 40 11/16/2015 Result Comment: The eGFR is calculated using the [...] from the National Kidney Disease Education Program (NKDEP) which additionally recommends that when the eGFR is used in patients with extremes of body mass index for purposes of drug dosing, the eGFR should be multiplied by the estimated BMI. [facility] CHEM PANEL Creatinine Lvl 1.65 0.50 - 1.40 11/16/2015 [facility] ELECTROLYTES Sodium Lvl 135 135 - 145 02/02/2015 [facility] ELECTROLYTES CO2 26 24 - 32 02/02/2015 [facility] ELECTROLYTES Chloride Lvl 101 95 - 109 02/02/2015 [facility] ELECTROLYTES Potassium Lvl 3.8 3.5 - 5.1 02/02/2015 [facility] ELECTROLYTES Calcium Lvl 9.3 8.5 - 10.5 02/02/2015 [facility] ELECTROLYTES Glucose Lvl 95 70 - 99 02/02/2015 [facility] ELECTROLYTES BUN 8 7 - 22 02/02/2015 [facility] ELECTROLYTES eGFR 73 02/02/2015 Result Comment: The eGFR is calculated using the [...] from the National Kidney Disease Education Program (NKDEP) which additionally recommends that when the eGFR is used in patients with extremes of body mass index for purposes of drug dosing, the eGFR should be multiplied by the estimated BMI. [facility] ELECTROLYTES Creatinine Lvl 1.0 1 0.50 - 1.40 02/02/2015 [facility] ELECTROLYTES AGAP 11.8 10.0 - 20.0 02/02/2015 [facility] HEMATOLOGY MCV 84.2 80.0 - 94.0 02/02/2015 [facility] HEMATOLOGY MPV 7.3 7.4 - 10.4 02/02/2015 [facility] HEMATOLOGY Platelet 250 133 - 450 02/02/2015 [facility] HEMATOLOGY RDW 15.7 11.5 - 14.5 02/02/2015 [facility] HEMATOLOGY MCH 26.4 27.0 - 31.0 02/02/2015 [facility] HEMATOLOGY MCHC 31.4 32.0 - 36.0 02/02/2015 [facility] HEMATOLOGY RBC 4.93 4.70 - 6.10 02/02/2015 [facility] HEMATOLOGY Hct 41.5 42.0 - 54.0 02/02/2015 [facility] HEMATOLOGY Hgb 13.0 14.0 - 18.0 02/02/2015 [facility] HEMATOLOGY WBC 7.1 3.7 - 10.4 02/02/2015 [facility] HEMATOLOGY Basophils # 0.1 0.0 - 0.2 02/02/2015 [facility] HEMATOLOGY Segs 65.4 45.0 - 75.0 02/02/2015 [facility] HEMATOLOGY Lymphocytes 21.3 20.0 - 40.0 02/02/2015 [facility] HEMATOLOGY Monocytes 11.5 2.0 - 12.0 02/02/2015 [facility] HEMATOLOGY Eosinophils 1.0 0.0 - 4.0 02/02/2015 [facility] HEMATOLOGY Lymphocytes # 1.5 1.0 - 5.5 02/02/2015 [facility] HEMATOLOGY Monocytes # 0.8 0.0 - 0.8 02/02/2015 [facility] HEMATOLOGY Eosinophils # 0.1 0.0 - 0.5 02/02/2015 [facility] HEMATOLOGY Basophils 0.8 0.0 - 1.0 02/02/2015 [facility] HEMATOLOGY Segs-Bands # 4.6 1.5 - 8.1 02/02/2015 [facility] HEMATOLOGY PTT 32.4 22.9 - 35.8 02/02/2015 [facility] HEMATOLOGY INR 0.96 0.85 - 1.17 02/02/2015 [facility] HEMATOLOGY PT 13.1 12.0 - 14.7 02/02/2015 [facility] Pathology Reports No Data Provided for This Section Diagnostic Reports Report Value Date Source Abdomen/Pelvis w/wo IV contrast CT EXAM: CT Abdomen/Pelvis w/wo contrast HISTORY: gross hematuria COMPARISON: None Multidetector CT images of the abdomen and were obtained before and after the administration of 100 cc intravenous contrast. Oral contrast was administered prior to the exam per protocol. Sagittal and coronal reformats were reviewed. DLP 1612. FINDINGS: The lung bases are clear. The liver, gallbladder, spleen and, adrenal glands and pancreas are unremarkable. No stone is seen within the urinary tract. There is no evidence of hydronephrosis. There is symmetric renal enhancement. There is a 2 cm simple cyst in the left kidney. No collecting system filling defect is evident. No contour deforming renal mass. There is no evidence of bowel obstruction or inflammation. No free fluid or adenopathy is seen. There is a large diverticulum arising from the right posterior urinary bladder which measures approximately 10 x 5 cm. The bladder mucosa at the neck of the diverticulum is thickened. Stranding and calcification in the mesentery is nonspecific. No aggressive osseous lesion. IMPRESSION: 1. Large right bladder diverticulum with mucosal thickening at the neck of the diverticulum. Recommend correlation with cystoscopy to exclude neoplastic process. 2. There is stranding and calcification in the central mesentery which is a nonspecific indicator of inflammation. For example, these findings can be seen in the setting of treated lymphoma and carcinoid. 10/07/2014 FABIOLA Arcos Consultation Notes No Data Provided for This Section Discharge Summaries No Data Provided for This Section History and Physicals No Data Provided for This Section Vital Signs Vital Sign Value Date Comments Source Weight 71.165 03/03/2018 [facility] BMI Calculated 26.93 03/03/2018 [facility] Height 162.56 cm 03/03/2018 [facility] Systolic (mm Hg) 152 03/03/2018 [facility] Diastolic (mm Hg) 82 03/03/2018 [facility] Heart Rate 83 03/03/2018 [facility] Systolic (mm Hg) 144 02/13/2018 [facility] Diastolic (mm Hg) 81 02/13/2018 [facility] BMI Calculated 26.88 02/13/2018 [facility] Weight 71.023 02/13/2018 [facility] Height 162.56 cm 02/13/2018 [facility] Heart Rate 76 02/13/2018 [facility] Systolic (mm Hg) 116 04/20/2016 [facility] Diastolic (mm Hg) 65 04/20/2016 [facility] Systolic (mm Hg) 119 04/20/2016 [facility] Diastolic (mm Hg) 67 04/20/2016 [facility] Respitory Rate 19 04/20/2016 [facility] Respitory Rate 19 04/20/2016 [facility] Systolic (mm Hg) 108 04/20/2016 [facility] Diastolic (mm Hg) 50 04/20/2016 [facility] Respitory Rate 18 04/20/2016 [facility] Heart Rate 78 04/20/2016 [facility] Weight 68.955 04/11/2016 [facility] Height 162.56 cm 04/11/2016 [facility] BMI Calculated 26.09 04/11/2016 [facility] Temperature Oral (F) 98 F 04/11/2016 [facility] Heart Rate 63 04/11/2016 [facility] Systolic (mm Hg) 150 12/26/2015 [facility] Diastolic (mm Hg) 89 12/26/2015 [facility] Systolic (mm Hg) 148 12/26/2015 [facility] Diastolic (mm Hg) 75 12/26/2015 [facility] Systolic (mm Hg) 137 12/26/2015 [facility] Diastolic (mm Hg) 81 12/26/2015 [facility] Respitory Rate 13 12/26/2015 [facility] Respitory Rate 14 12/26/2015 [facility] Respitory Rate 9 12/26/2015 [facility] Heart Rate 76 12/23/2015 [facility] Temperature Oral (F) 97.1 F 12/23/2015 [facility] Height 162.56 cm 12/23/2015 [facility] BMI Calculated 25.11 12/23/2015 [facility] Weight 66.364 12/23/2015 [facility] Systolic (mm Hg) 140 11/16/2015 [facility] Diastolic (mm Hg) 77 11/16/2015 [facility] Respitory Rate 16 11/16/2015 [facility] Heart Rate 79 11/16/2015 [facility] Temperature Oral (F) 97.2 F 11/16/2015 [facility] Systolic (mm Hg) 134 11/16/2015 [facility] Diastolic (mm Hg) 73 11/16/2015 [facility] Respitory Rate 16 11/16/2015 [facility] Heart Rate 75 11/16/2015 [facility] Temperature Oral (F) 97.7 F 11/16/2015 [facility] Weight 62.955 11/16/2015 [facility] BMI Calculated 23.82 11/16/2015 [facility] Height 162.56 cm 11/16/2015 [facility] Systolic (mm Hg) 145 11/16/2015 [facility] Diastolic (mm Hg) 77 11/16/2015 [facility] Respitory Rate 16 11/16/2015 [facility] Heart Rate 73 11/16/2015 [facility] Temperature Oral (F) 97.6 F 11/16/2015 [facility] Systolic (mm Hg) 147 02/10/2015 [facility] Diastolic (mm Hg) 67 02/10/2015 [facility] Systolic (mm Hg) 127 02/10/2015 [facility] Diastolic (mm Hg) 66 02/10/2015 [facility] Systolic (mm Hg) 134 02/10/2015 [facility] Diastolic (mm Hg) 81 02/10/2015 [facility] Respitory Rate 12 02/10/2015 [facility] Respitory Rate 10 02/10/2015 [facility] Respitory Rate 16 02/10/2015 [facility] Heart Rate 65 02/10/2015 [facility] Temperature Oral (F) 98 F 02/02/2015 [facility] Heart Rate 83 02/02/2015 [facility] Height 162.56 cm 02/02/2015 [facility] Weight 68.182 02/02/2015 [facility] BMI Calculated 25.8 02/02/2015 [facility] Encounters Location Location Details Encounter Type Encounter Number Reason For Visit Attending Provider ADM Date DC Date Status Source [facility] [place] Out[facility] Diag Services [id number] Praful Jeffery 03/12/2014 03/13/[address] [facility] [place] Outpt Diag Services [id number] Sahil Vemana 10/07/2014 10/08/2014 AFBIOLA Arcos [facility] OBS Day Surgery [id number] Sahil Vemana 02/10/2015 02/10/2015 [facility] Inpatient [id number] Niko Mcgarry 11/16/2015 11/16/2015 [facility] Day Surgery [id number] Sahil Vemana 12/26/2015 12/26/2015 [facility] Day Surgery [id number] Sahil Vemana 04/20/2016 04/20/2016 [facility] Outpatient [id number] VICENTE SINGER 02/13/2018 [facility] [place] Outpatient [id number] Dieudonne Marte 02/13/2018 02/14/2018 [facility] Outpatient [id number] VICENTE HAMMONDEN 03/03/2018 Active [facility] [place] [facility] [id number] Vicente Hammonden 03/03/2018 03/04/2018 [facility] Outpatient [id number] MED_ASST VISIT 08/28/2018 Active [facility] Outpatient [id number] Dieudonne Marte 08/28/2018 Active [facility] Outpatient [id number] Praful Jeffery 08/28/2018 08/29/2018 [facility] Outpatient [id number] MED_ASST VISIT 12/18/2018 Active [facility] Outpatient [id number] Vicente Singer 12/25/2018 [facility] Ambulatory Pre-Reg [id number] Praful Jeffery 01/06/2019 01/06/2019 [facility] Ambulatory Pre-Reg [id number] Praful Jeffery 01/22/2019 01/22/2019 [facility] Procedures Procedure Code Date Perfomer Comments Source Complex uroflowmetry [id number] 05/08/2016 [facility] Cystoscopy [id number] 12/03/2015 [facility] Bilateral inguinal hernia repair<sup>1</sup> [id number] with mesh [facility] Laser ablation of prostate [id number] [facility] Assessment and Plan Assessment and Plan Date Source Extracted from:Title: Clinical Document Author: Hi Lopez MD Date: 11/16/15 D/c Dx urinary retention Obstruxitve uropathy [...] with Dr Arteaga Empiric abx started Extracted from:Title: Urology Author: Abner Berger MD Date: 11/16/15 Impression and Plan Acute urinary retention, bladder neck contracture - 18fr langley placed after urethral dilat ion - Continue langley as outpatient, OK to D/ C if Cr improves - Keep scheduled followup with Dr. Robin jc on 11/21 - Urine culture sent, treat if positive Extracted from:Title: Clinical Document Author: Niko Mcgarry MD Date: 11/16/15 PATIENT NAME: SHENA ENAMORADO ATTENDING PHYSICIAN: HEIDI CORDERO DATE OF ADMISSION: 11/16/15 * * * CC: URINARY RETENTION REASON FOR ADMISSION: URINARY RETENTION HISTORY OF PRESENT ILLNESS: 75 yo man with h/o BPH and urinary reten tion s/p laser vaporization of the prostate 02/10/15 presents from [facility] ED with urinary retention. Langley catheterization attempted at outside ED unsuccessful on 4 attempts. Urology consulted from outsided ED and advised to transfer to [facility] for urologic intervention. Creatinine obtained there was 1.65, reportedly increased from baseline. Transferring ED physician also noted pt has a resultant UTI. Dr Vicente Singer consulted, covering urology staff will see pt here at [facility]. PAST MEDICAL HISTORY: as per HPI. h/o UTI's. PAST SURGICAL HISTORY: bowel resection, laser vaporization of prostate FAMILY HISTORY: noncontributory ALLERGIES: Allergies (1) Active Reaction NKDA None documented HOME MEDICATIONS: see medical reconciliation list SOCIAL HISTORY: no alcohol, drug use or smoking REVIEW OF SYSTEMS: 12 point review of systems negative except that detailed in above HPI PHYSICAL EXAMINATION: Vitals Tmp(F) Pulse BP RR SpO2 FIO2 11/15 03:08 97.6 73 145/77 1 6 --- --- 24 Hr Tmax: 97.6F (36.44c) at 11/15 03:0 8 Vital Signs are the last 5 in the past 48 hours. I&O Record In Out Bal 24hr Tot 0 0 0 24hr Tot [...] and administer rocephin 1g IV. admit i1 11/16/2015 [facility] Plan of Care No Data Provided for This Section Social History Social History Date Source Social History TypeResponse Substance Abuse Use: None. Alcohol Never Smoking Status Never smoker; Exposure to Tobacco Smoke None; Cigarette Smoking Last 365 Days No; Reg Smoking Cessation Counseling No 04/11/2016 [facility] Social History TypeResponse Alcohol Never Substance Abuse Use: None. Smoking Status Never smoker; Exposure to Tobacco Smoke None; Cigarette Smoking Last 365 Days No; Reg Smoking Cessation Counseling No entered on: 08/28/18 04/11/2016 [facility] No data available for this section 10/08/2014 FABIOLA Arcos Family History No Data Provided for This Section Advance Directives No Data Provided for This Section Functional Status No Data Provided for This Section
--- OUTSIDE RECORDS SUMMARY | 2019-08-16 16:14 | XMS REPORT | Summary of Care ---
Author Author [facility] ton Organization [facility] [place] [facility] Address Unknown Phone Unavailable Encounter MONICO Jefferson(FIN) [id number] Date(s): 01/22/19 - 01/22/19 [facility] [place] [address] [place] [phone] Attending Physician: Vicente Resendiz MD Referring Physician: Praful Jeffery MD Vital Signs No data available for this section Problem List Condition Effective Dates Status Health [...] Reactions, Alerts No Known Medication Allergies Medications No data available for this section Results No data available for this section Immunizations No data available for this section Procedures Procedure Date Related Diagnosis Body Site Status Complex uroflowmetry 05/08/16 Completed Cystoscopy 12/2015 Completed Bilateral inguinal hernia repair1 Completed Laser ablation of prostate Completed 1with mesh Social History Social History Type Response Alcohol Never Substance Abuse Use: None. Smoking Status Never smoker; Exposure to T obacco Smoke None; Cigarette Smoking Last 365 Days No; Reg Smoking Cessation Counseli ng No entered on: 08/28/18 Assessment and Plan No data available for this section
--- OUTSIDE RECORDS SUMMARY | 2019-08-16 16:14 | XMS REPORT | Summary of Care ---
Author Author [facility] Organization [facility] Address Unknown Phone Unavailable Encounter MONICO Jefferson(PRINCESS) [id number] Date(s): 12/26/15 - 12/26/15 [facility] [address] [place] [address]- [phone] Discharge Disposition: Home or Self Care Attending Physician: Sahil Arteaga MD Referring Physician: Sahil Arteaga MD Vital Signs 1 2 3 Most recent to oldest [Reference Range]: 162.56 cm (12/23/15 11:57 AM) Height 97.1 DegF (12/23/15 12:56 PM) Temperature Oral [96.4-99.1 DegF] 150/89 mmHg *HI* (12/26/15 3:30 PM) 148/75 mmHg *HI* (12/26/15 3:15 PM) 137/81 mmHg (12/26/15 3:00 PM) Blood Pressure [90-140/60-90 mmHg] 13 BRMIN *LOW* (12/26/15 3:00 PM) 14 BRMIN (12/26/15 2:45 PM) 9 BRMIN *LOW* (12/26/15 2:30 PM) Respiratory Rate [14-20 BRMIN] 76 bpm (12/23/15 12:56 PM) Peripheral Pulse Rate [60-100 bpm] 66.364 kg (12/23/15 11:57 AM) Weight 25.11 m2 (12/23/15 11:57 AM) Body Mass Index Problem List Condition Effective Dates Status Health Status Informan t Hernia, Resolved inguinal(Confirmed) Nocturia(Confirmed) Resolved Urinary Active frequency(Confirmed) Allergies, Adverse Reactions, Alerts Substance Reaction Severity Status NKDA Active Medications albuterol-ipratropium 2.5-0.5 mg inhalation solution 3 mL, Route: NEB, Dosing Weight 66.364, kg, ONCE, STAT, Start date: 12/26/15 12: 15:00 CDT, Stop date: 12/26/15 12:15:00 CDT Start Date: 12/26/15 Stop Date: 12/26/15 Status: Discontinued ciprofloxacin (ANES) (ANES) Route: IV, Drug form: INJ, Start date: 12/26/15 13:43:00 CDT, Stop date: 6 14:43:00 CDT Start Date: 12/26/15 Stop Date: 12/26/15 Status: Completed fentaNYL (ANES) Route: IV, Drug form: INJ, ONCE, Stop date: 12/26/15 14:31:00 CDT Start Date: 12/26/15 Stop Date: 12/26/15 Status: Completed Lactated Ringers Injection IV 1000 mL 1,000 mL, Rate: 25 ml/hr, Infuse over: 40 hr, Route: IV, Dosing Weight 66.364 kg , Total Volume: 1,000, Start date: 12/26/15 12:15:00 CDT, Duration: 30 day, Stop date: 01/25/16 12:14:00 LASERIST Start Date: 12/26/15 Stop Date: 12/26/15 Status: Discontinued lidocaine (ANES) Route: IV, Drug form: INJ, ONCE, Stop date: 12/26/15 14:31:00 CDT Start Date: 12/26/15 Stop Date: 12/26/15 Status: Completed LR 1000 mL INJ (ANES) Route: IV, Total Volume: 1,000, Start date: 12/26/15 13:43:00 CDT, Stop date: 14:43:00 CDT Start Date: 12/26/15 Stop Date: 12/26/15 Status: Completed Myrbetriq 50 mg oral tablet, extended release 50 mg = 1 tab, PO, Daily, # 30 tab, 0 Refill(s) Start Date: 12/23/15 Status: Ordered ondansetron (ANES) Route: IV, Drug form: INJ, ONCE, Stop date: 12/26/15 14:31:00 CDT Start Date: 12/26/15 Stop Date: 12/26/15 Status: Completed propofol (ANES) Route: IV, Drug form: INJ, ONCE, Stop date: 12/26/15 14:31:00 CDT Start Date: 12/26/15 Stop Date: 12/26/15 Status: Completed Sodium Chloride 0.9% IV 500 mL 500 mL, Rate: 25 ml/hr, Infuse over: 20 hr, Route: IV, Dosing Weight 66.364 kg, Total Volume: 500, Start date: 12/26/15 12:15:00 CDT, Duration: 30 day, Stop daily e: 01/25/16 12:14:00 LASERIST Start Date: 12/26/15 Stop Date: 12/26/15 Status: Discontinued Results ELECTROLYTES Most recent to 1 oldest [Reference Range]: Sodium Lvl [135-145 138 mEq/L mEq/L] (12/23/15 12:24 PM) Potassium Lvl 3.6 mEq/L [3.5-5.1 mEq/L] (12/23/15 12:24 PM) Chloride Lvl [95-109 105 mEq/L mEq/L] (12/23/15 12:24 PM) CO2 [24-32 mEq/L] 26 mEq/L (12/23/15 12:24 PM) AGAP [10.0-20.0 10.6 mEq/L mEq/L] (12/23/15 12:24 PM) CHEM PANEL Most recent to 1 oldest [Reference Range]: Creatinine Lvl 1.30 mg/dL [0.50-1.40 mg/dL] (12/23/15 12:24 PM) eGFR 53 mL/min/1.73m2 1 *NA* (12/23/15 12:24 PM) BUN [7-22 mg/dL] 13 mg/dL (12/23/15 12:24 PM) Glucose Lvl [70-99 116 mg/dL mg/dL] *HI* (12/23/15 12:24 PM) Calcium Lvl 8.9 mg/dL [8.5-10.5 mg/dL] (12/23/15 12:24 PM) 1Result Comment: The eGFR is calculated [...] be mul tiplied by the estimated BMI. URINE AND STOOL Most recent to 1 oldest [Reference Range]: UA Turbidity [Clear] Slight *ABN* (12/23/15 12:24 PM) UA Color Red *NA* (12/23/15 12:24 PM) UA pH [5.0-8.0] 6.0 (12/23/15 12:24 PM) UA Spec Grav 1.015 [<=1.030] (12/23/15 12:24 PM) UA Glucose [Negative Negative mg/dL mg/dL] *NA* (12/23/15 12:24 PM) UA Blood [Negative] Large *ABN* (12/23/15 12:24 PM) UA Ketones [Negative Trace mg/dL mg/dL] *ABN* (12/23/15 12:24 PM) UA Protein [Negative 100 mg/dL mg/dL] *ABN* (12/23/15 12:24 PM) UA Urobilinogen <=1.0 mg/dL [0.1-1.0 mg/dL] *NA* (12/23/15 12:24 PM) UA Bili [Negative] Negative *NA* (12/23/15 12:24 PM) UA Leuk Est Moderate [Negative] *ABN* (12/23/15 12:24 PM) UA Nitrite Negative [Negative] (12/23/15 12:24 PM) UA WBC [0-5 /HPF] 150 /HPF *HI* (12/23/15 12:24 PM) UA RBC [0-2 /HPF] >182 /HPF *HI* (12/23/15 12:24 PM) UA Sq Epi None Seen *NA* (12/23/15 12:24 PM) UA Mucus [None Seen Few /LPF /LPF] *NA* (12/23/15 12:24 PM) UA [place] Yeast [None Occasional /HPF Seen /HPF] *ABN* (12/23/15 12:24 PM) HEMATOLOGY Most recent to 1 oldest [Reference Range]: WBC [3.7-10.4 K/CMM] 6.9 K/CMM (12/23/15 12:24 PM) RBC [4.70-6.10 4.26 M/CMM M/CMM] *LOW* (12/23/15:24 PM) Hgb [14.0-18.0 g/dL] 12.1 g/dL *LOW* (12/23/15:24 PM) Hct [42.0-54.0 %] 36.0 % *LOW* (12/23/15:24 PM) MCV [80.0-94.0 fL] 84.4 fL (12/23/15:24 PM) MCH [27.0-31.0 pg] 28.3 pg (12/23/15:24 PM) MCHC [32.0-36.0 33.5 g/dL g/dL] (12/23/15 12:24 PM) RDW [11.5-14.5 %] 14.4 % (12/23/15 12:24 PM) Platelet [133-450 268 K/CMM K/CMM] (12/23/15 12:24 PM) MPV [7.4-10.4 fL] 7.2 fL *LOW* (12/23/15 12:24 PM) Segs [45.0-75.0 %] 62.0 % (12/23/15 12:24 PM) Lymphocytes 29.1 % [20.0-40.0 %] (12/23/15 12:24 PM) Monocytes [2.0-12.0 8.0 % %] (12/23/15 12:24 PM) Eosinophils [0.0-4.0 0.3 % %] (12/23/15 12:24 PM) Basophils [0.0-1.0 0.6 % %] (12/23/15 12:24 PM) Segs-Bands # 4.3 K/CMM [1.5-8.1 K/CMM] (12/23/15 12:24 PM) Lymphocytes # 2.0 K/CMM [1.0-5.5 K/CMM] (12/23/15 12:24 PM) Monocytes # [0.0-0.8 0.6 K/CMM K/CMM] (12/23/15 12:24 PM) PT [12.0-14.7 14.2 seconds seconds] (12/23/15 12:24 PM) INR [0.85-1.17] 1.08 (12/23/15 12:24 PM) PTT [22.9-35.8 31.4 seconds seconds] (12/23/15 12:24 PM) Immunizations No data available for this section Procedures Procedure Date Related Diagnosis Body Site Bilateral inguinal hernia repair1 Laser ablation of prostate 1with mesh Social History Social History Type Response Alcohol Never Smoking Status Never smoker; Exposure to T obacco Smoke None; Cigarette Smoking Last 365 Days No; Reg Smoking Cessation Counseli ng No Assessment and Plan No data available for this section
--- OUTSIDE RECORDS SUMMARY | 2019-08-16 16:14 | XMS REPORT | Summary of Care ---
Author Author [facility] ton Organization [facility] [place] Address Unknown Phone Unavailable Encounter MONICO Jefferson(PRINCESS) [id number] Date(s): 03/03/18 - 03/03/18 [facility] [place] [address] [place] [phone] Discharge Disposition: Home or Self Care Attending Physician: Vicente Resendiz MD Referring Physician: Praful Jeffery MD Vital Signs Most recent to 1 oldest [Reference Range]: Height 162.56 cm (03/03/18 11:02 AM) Blood Pressure 152/82 mmHg [90-140/60-90 mmHg] *HI* (03/03/18 11:02 AM) Peripheral Pulse 83 bpm Rate [60-100 bpm] (03/03/18 11:02 AM) Weight 71.165 kg (03/03/18 11:02 AM) Body Mass Index 26.93 m2 (03/03/18 11:02 AM) Problem List Condition Effective Dates Status [...] Reactions, Alerts No Known Medication Allergies Medications Myrbetriq 50 mg oral tablet, extended release 50 mg = 1 tab, PO, Daily, # 90 tab, 3 Refill(s), Pharmacy: [facility]/pharmacy #[id number] Start Date: 03/03/18 Stop Date: 02/26/19 Status: Ordered Results No data available for [...]
--- OUTSIDE RECORDS SUMMARY | 2019-08-16 16:14 | XMS REPORT | Summary of Care ---
Author Author [facility] Organization [facility] Address Unknown Phone Unavailable Encounter HQ Davidntr_roni(PRINCESS) [id number] Date(s): 10/07/14 - 10/07/14 [facility] Outpatient [facility] [place] [address] [place] [address] [phone] Discharge Disposition: Home Attending Physician: Sahil Arteaga MD Vital Signs No data available for this section Problem List No data available for this section Allergies, Adverse Reactions, Alerts No data available for this section Medications No data available for this section Results No data available for this section Immunizations No data available for this section Procedures No data available for this section Social History No data available for this section Assessment and Plan No data available for this section
--- OUTSIDE RECORDS SUMMARY | 2019-08-16 16:14 | XMS REPORT | Summary of Care ---
Author Author [facility] Organization [facility] Address Unknown Phone Unavailable Encounter MONICO Jefferson(PRINCESS) [id number] Date(s): 02/10/15 - 02/10/15 [facility] [address] [place] [address]- [phone] Discharge Disposition: Home Attending Physician: Sahil Arteaga MD Referring Physician: Sahil Arteaga MD Vital Signs 1 2 3 Most recent to oldest [Reference Range]: 162.56 cm (02/02/15 10:20 AM) Height 98 DegF (02/02/15 10:52 AM) Temperature Oral [96.4-99.1 DegF] 147/67 mmHg *HI* (02/10/15 1:30 PM) 127/66 mmHg (02/10/15 1:00 PM) 134/81 mmHg (02/10/15 12:30 PM) Blood Pressure [90-140/60-90 mmHg] 12 BRMIN *LOW* (02/10/15 10:15 AM) 10 BRMIN *LOW* (02/10/15 10:00 AM) 16 BRMIN (02/10/15 9:49 AM) Respiratory Rate [14-20 BRMIN] 65 bpm (02/10/15 6:15 AM) 83 bpm (02/02/15 10:52 AM) Peripheral Pulse Rate [60-100 bpm] 68.182 kg (02/02/15 10:20 AM) Weight 25.8 m2 (02/02/15 10:20 AM) Body Mass Index Problem List Condition Effective Dates Status Health Status Informan t Hernia, Resolved inguinal(Confirmed) Nocturia(Confirmed) Resolved Urinary Active frequency(Confirmed) Allergies, Adverse Reactions, Alerts Substance Reaction Severity Status NKDA Active Medications acetaminophen 1,000 mg, Route: IVPB, Drug form: INJ, ONCE, Dosing Weight 68.182, kg, PRN Pain Score 1-3, Start date: 02/10/15 11:38:00, Duration: 1 doses or times, Stop date: Limited # of times Start Date: 02/10/15 Stop Date: 02/10/15 Status: Discontinued acetaminophen-hydrocodone 325 mg-5 mg oral tablet 1 tab, Route: PO, Dosing Weight 68.182, kg, Q4H, PRN Pain Score 4-6, Start date: 02/10/15 9:53:00, Duration: 30 day, Stop date: 03/12/15 9:52:00 Start Date: 02/10/15 Stop Date: 02/10/15 Status: Discontinued Benadryl 25 mg oral tablet 25 mg = 1 tab, PO, TID, PRN Allergic reaction, 0 Refill(s) Start Date: 02/02/15 Status: Ordered fentaNYL 50 microgram, Route: IVP, Q5Min, Dosing Weight 68.182, kg, PRN Pain Score 7-10, Start date: 02/10/15 11:38:00, Duration: 2 doses or times, Stop date: Limited # of times Start Date: 02/10/15 Stop Date: 02/10/15 Status: Discontinued flumazenil 0.2 mg, Route: IVP, PRN, Dosing Weight 68.182, kg, PRN Benzodiazepine Reversal, Initial dose, Start date: 02/10/15 11:38:00, Duration: 30 day, Stop date: 11:37:00 Start Date: 02/10/15 Stop Date: 02/10/15 Status: Discontinued hydromorphone 0.5 mg, Route: IVP, Q5Min, Dosing Weight 68.182, kg, PRN Pain Score 7-10, Start date: 02/10/15 11:38:00, Duration: 4 doses or times, Stop date: Limited # of lb es Start Date: 02/10/15 Stop Date: 02/10/15 Status: Discontinued Lactated Ringers Injection IV 1000 mL 1,000 mL, Rate: 25 ml/hr, Infuse over: 40 hr, Route: IV, Dosing Weight 68.182 kg , Total Volume: 1,000, Start date: 02/10/15 6:34:00, Duration: 30 day, Stop date : 03/12/15 6:33:00 Start Date: 02/10/15 Stop Date: 02/10/15 Status: Discontinued meperidine 12.5 mg, Route: IVP, Q30Min, Dosing Weight 68.182, kg, PRN Other -See Comment, F or shivering, Start date: 02/10/15 11:38:00, Duration: 2 doses or times, Stop da te: Limited # of times Start Date: 02/10/15 Stop Date: 02/10/15 Status: Discontinued morphine Sulfate 2 mg, Route: IVP, Q3H, Dosing Weight 68.182, kg, PRN Pain Score 1-3, Start date: 02/10/15 9:53:00, Duration: 30 day, Stop date: 03/12/15 9:52:00 Start Date: 02/10/15 Stop Date: 02/10/15 Status: Discontinued naloxone 0.04 mg, Route: IVP, Q2MIN, Dosing Weight 68.182, kg, PRN Narcotic Reversal, Sta rt date: 02/10/15 11:38:00, Duration: 8 doses or times, Stop date: Limited # of times Start Date: 02/10/15 Stop Date: 02/10/15 Status: Discontinued ondansetron 4 mg, Route: IVP, ONCE, Dosing Weight 68.182, kg, PRN Nausea & Vomiting, Start date: 02/10/15 11:38:00 Start Date: 02/10/15 Stop Date: 02/10/15 Status: Completed oxybutynin 10 mg oral tablet, extended release 10 mg = 1 tab, PO, Daily, # 30 tab, 1 Refill(s) Start Date: 02/10/15 Status: Ordered oxyCODONE 5 mg/5 mL oral solution 5 mg, Route: NG, Drug form: LIQ, Q4H, Dosing Weight 68.182, kg, PRN Pain Score 4 -6, Start date: 02/10/15 11:38:00, Duration: 30 day, Stop date: 03/12/15 11:37:0 0 Start Date: 02/10/15 Stop Date: 02/10/15 Status: Discontinued Phenergan 12.5 mg, Route: IVPB, ONCE, Dosing Weight 68.182, kg, PRN Nausea & Vomiting, Start date: 02/10/15 13:03:00, Stop date: 03/12/15 13:02:00 Start Date: 02/10/15 Stop Date: 02/10/15 Status: Completed Pyridium 100 mg oral tablet 100 mg = 1 tab, PO, TID, PRN Dysuria, X 2 day, # 6 tab, 0 Refill(s) Start Date: 02/10/15 Stop Date: 02/12/15 Status: Completed Reglan 10 mg, Route: IVP, Drug form: INJ, ONCE, Dosing Weight 68.182, kg, Start date: 1 04/13/14 12:31:00, Stop date: 02/10/15 12:31:00 Start Date: 02/10/15 Stop Date: 02/10/15 Status: Completed Tylenol with Codeine #3 oral tablet 1 - 2 tab, PO, Q4H, PRN Pain, X 2 day, # 20 tab, 0 Refill(s) Start Date: 02/10/15 Stop Date: 02/12/15 Status: Completed Results ELECTROLYTES Most recent to 1 oldest [Reference Range]: Sodium Lvl [135-145 135 mEq/L mEq/L] (02/02/15 10:37 AM) Potassium Lvl 3.8 mEq/L [3.5-5.1 mEq/L] (02/02/15 10:37 AM) Chloride Lvl [95-109 101 mEq/L mEq/L] (02/02/15 10:37 AM) CO2 [24-32 mEq/L] 26 mEq/L (02/02/15 10:37 AM) AGAP [10.0-20.0 11.8 mEq/L mEq/L] (02/02/15 10:37 AM) CHEM PANEL Most recent to 1 oldest [Reference Range]: Creatinine Lvl 1.01 mg/dL [0.50-1.40 mg/dL] (02/02/15 10:37 AM) eGFR 73 mL/min/1.73m2 1 *NA* (02/02/15 10:37 AM) BUN [7-22 mg/dL] 8 mg/dL (02/02/15 10:37 AM) Glucose Lvl [70-99 95 mg/dL mg/dL] (02/02/15 10:37 AM) Calcium Lvl 9.3 mg/dL [8.5-10.5 mg/dL] (02/02/15 10:37 AM) 1Result Comment: The eGFR is calculated using [...] estimated BMI. HEMATOLOGY Most recent to 1 oldest [Reference Range]: WBC [3.7-10.4 K/CMM] 7.1 K/CMM (02/02/15 10:37 AM) RBC [4.70-6.10 4.93 M/CMM M/CMM] (02/02/15 10:37 AM) Hgb [14.0-18.0 g/dL] 13.0 g/dL *LOW* (02/02/15 10:37 AM) Hct [42.0-54.0 %] 41.5 % *LOW* (02/02/15 10:37 AM) MCV [80.0-94.0 fL] 84.2 fL (02/02/15 10:37 AM) MCH [27.0-31.0 pg] 26.4 pg *LOW* (02/02/15 10:37 AM) MCHC [32.0-36.0 31.4 g/dL g/dL] *LOW* (02/02/15 10:37 AM) RDW [11.5-14.5 %] 15.7 % *HI* (02/02/15 10:37 AM) Platelet [133-450 250 K/CMM K/CMM] (02/02/15 10:37 AM) MPV [7.4-10.4 fL] 7.3 fL *LOW* (02/02/15 10:37 AM) Segs [45.0-75.0 %] 65.4 % (02/02/15 10:37 AM) Lymphocytes 21.3 % [20.0-40.0 %] (02/02/15 10:37 AM) Monocytes [2.0-12.0 11.5 % %] (02/02/15 10:37 AM) Eosinophils [0.0-4.0 1.0 % %] (02/02/15 10:37 AM) Basophils [0.0-1.0 0.8 % %] (02/02/15 10:37 AM) Segs-Bands # 4.6 K/CMM [1.5-8.1 K/CMM] (02/02/15 10:37 AM) Lymphocytes # 1.5 K/CMM [1.0-5.5 K/CMM] (02/02/15 10:37 AM) Monocytes # [0.0-0.8 0.8 K/CMM K/CMM] (02/02/15 10:37 AM) Eosinophils # 0.1 K/CMM [0.0-0.5 K/CMM] (02/02/15 10:37 AM) Basophils # [0.0-0.2 0.1 K/CMM K/CMM] (02/02/15 10:37 AM) PT [12.0-14.7 13.1 seconds seconds] (02/02/15 10:37 AM) INR [0.85-1.17] 0.96 (02/02/15 10:37 AM) PTT [22.9-35.8 32.4 seconds seconds] (02/02/15 10:37 AM) Immunizations No data available for this section Procedures Procedure Date Related Diagnosis Body Site Bilateral inguinal hernia repair1 1with mesh Social History Social History Type Response Alcohol Never Smoking Status Never smoker; Exposure to T obacco Smoke None; Cigarette Smoking Last 365 Days No; Reg Smoking Cessation Counseli ng No Assessment and Plan No data available for this section
--- OUTSIDE RECORDS SUMMARY | 2019-08-16 16:14 | XMS REPORT | Summary of Care ---
Author Author [facility] ton Organization [facility] [place] Address Unknown Phone Unavailable Encounter HQ Dinah_roni(FIN) [id number] Date(s): 01/06/19 - 01/06/19 [facility] [place] [address] [place] [id number]- Attending Physician: JULIO CESAR MARTINEZ_[facility]ST [facility] Referring Physician: Praful Jeffery MD Vital Signs [...]
--- OUTSIDE RECORDS SUMMARY | 2019-08-16 16:14 | XMS REPORT | Summary of Care ---
Author Author [facility] ton Organization [facility] [place] Address Unknown Phone Unavailable Encounter MONICO Jefferson(FIN) [id number] Date(s): 08/28/18 - 08/28/18 [facility] [place] [address] [place] [phone]- Discharge Disposition: Home or Self Care Attending [...]
--- OUTSIDE RECORDS SUMMARY | 2019-08-16 16:15 | XMS REPORT | Continuity of Care Document ---
Author Author [facility] t Organization [facility] Address [address] [place] [address] Phone Unavailable Care Team Providers Care Field Technical Assistant Name Role Phone Sheila JEFFERY PCP HAMPEL, MARICHUY Attphys Unavailable Tamika Resendiz Vicente Attphys VISIT, UA MED_ASST Attphys Unavailable Onur Marte Attphys VemSahil roth Attphys Albustami, Mahmoud Karan Attphys Stephon Jeffery Attphys Albustami, Mahmoud Karan Admphys Payers Payer Name Policy Type Policy Number Effective Date Expiration Date Jason Jacobsen [facility] [id number] 2019 00:00:00 [facility] Problems Condition Name Condition Details Condition Category Status Onset Date Resolution Date Last Treatment Date Treating Clinician Comments Source HILDA CARRILLOK Active 04/11/2016 [facility] Active 2016-04-11 00:00:00 2016-04-23 20:43:00 Chip Arreguin URETHRAL OBSTRUCTION, KIDNEY STONE URETHRAL OBSTRUCTION, KIDNEY STONE Active 11/16/2015 [facility] Active 11-15 02:00:00 2015-11-16 05:20:00 Holger meyers URINARY RETENTION URIN JANET RETENTION Active 11/16/2015 [facility] Active 2015-11-16 02:00:00 2015-11-21 22:04:00 Holger Arreguin Arthropathy (disorder) Arth ropathy (disorder) Resolved Problem 01/24/2019 [facility] Problem Resolved 2019-01-24 22 :26:20 Holger Arreguin 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) Resolved Problem 01/24/2019 [facility] Problem Resolved 2019-01-24 22 :26:20 [facility] Rod[facility]guez Blood in urine (finding) Bloo d in urine (finding) Resolved Problem 01/24/2019 [facility] Problem Resolved 201 11-12-22 22:26:20 [facility] Cataract (disorder) Valarie ract (disorder) Resolved Problem 01/24/2019 [facility] Problem Resolved 2019-01-24 22:26:20 [facility] Mack 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 Problem 01/24/2019 [facility] Problem Resolved 2019-01-24 22:26:20 [facility] Hiatal hernia (disorder) Hiat al hernia (disorder) Resolved Problem 01/24/2019 [facility] Problem Resolved 2019-01-24 22:26:20 Holger Arreguin Nocturia (finding) Noct uria (finding) Resolved Problem 01/24/2019 [facility] Problem Resolved 2019-01-24 22:26:20 [facility] Rod[facility] Seasonal allergy (disorder) Se asonal allergy (disorder) Resolved Problem 01/24/2019 [facility] Problem Resolved 2019-01-24 22:26:20 [facility] Mack Urinary tract infectious disease (disorder) Urinary tract infectious disease (disorder) Resolved Problem 01/24/2019 [facility] Problem Resolved 2019-01-24 22:26:20 [facility] Increased frequency of urination (finding) Increased frequency of urination (finding) Active Problem 01/24/2019 [facility] Problem Active 2019-01-24 22:26:20 Celestine Arreguin GROSS HEMATURIA ANN S HEMATURIA Active [facility] Diagnosis Active 2014-12-23 10:19:00 [facility] ENLARGED PROSTATE WITH LOWER URINARY TRA ENLARGED PROSTATE WITH LOWER URINARY TRA Active [facility] Diagnosis Active 2014-12-23 10:19:00 [facility] Rod[facility] CALCULUS OF KIDNEY CALC ULUS OF KIDNEY Active [facility] Diagnosis Active 2015-11-16 05:20:00 Ct morial Rodríguez RETENTION OF URINE, UNSPECIFIED RETENTION OF URINE, UNSPECIFIED Active [facility] Diagnosis Active 2015-11-21 22 :04:00 [facility] Allergies, Adverse Reactions, Alerts Allergy Name Allergy Type Status Severity Reaction(s) Onset Date Inacti ve Date Treating Clinician Comments Source No Known Medication Allergies No Known Medication Allergies Active Holger Arreguin Social History Social Habit Start Date Stop Date Quantity Comments Source Social History 2014-10-08 04:59:00 2014-10-08 04:59:00 Holger Arreguin Medications Ordered Medication Name Filled Medication Name Start Date Stop Da te Current Medication? Ordering Clinician Indication Dosage Frequency Signature (SIG) Comments Components Source 24 HR mirabegron 50 MG Extended Release Tablet [Myrbetriq] 2018-03-03 17:37:00 Yes 50 mg = 1 tab, PO, Daily, # 90 tab, 3 Refill(s), Pharmacy: [facility]/pharmacy #[id number] Holger Arreguin Claritin 2018-02-13 16:25:00 Yes Daily, 0 Re fill(s) Holger Arreguin glycopyrrolate (KAELAS) 2016-04-20 15:31:00 No Route: IV, Drug form: INJ, ONCE, Stop date: 04/20/16 9:31:00 HOUSE OFFICER oHlger Arreguin neostigmine (KAELAS) 2016-04-20 15:31:00 No Route: IV, Drug form: INJ, ONCE, Stop date: 04/20/16 9:31:00 HOUSE OFFICER Chip Arreguin tramadol hydrochloride 50 MG Oral Tablet 2016-04-20 15:19:00 Yes 50 mg = 1 tab, PO, Q6H, PRN Pain Score 4-6, X 7 day, # 30 tab, 0 Refill(s) Holger Arreguin Phenazopyridine hydrochloride 100 MG Oral Tablet [Pyridium] 2016-04-20 15:19:00 Yes 100 mg = 1 tab, PO, TID, PRN Dysuria, X 5 day, # 15 tab, 0 Refill(s) Holger Arreguin Hyoscyamine Sulfate 0.125 MG Sublingual Tablet [Levsin] 2016-04-20 15:19:00 Yes 0.125 mg = 1 tab, SL, Q4H , PRN Bladder Spasm, # 30 tab, 0 Refill(s) Holger Arreguin Ciprofloxacin 500 MG Oral Tablet [Cipro] 2016-04-20 15:19:00 Yes 500 mg = 1 tab, PO, Q12H, X 7 day, # 14 tab, 0 Refill(s) Holger Arreguin ondansetron (ANES) 2016-04-20 14:57:00 No Route: IV, Drug form: INJ, ONCE, Stop date: 04/20/16 8:57:00 HOUSE OFFICER juliarimary kay Dunbarann dexamethasone (ANES) 2016-04-20 14:57:00 No Route: IV, Drug form: INJ, ONCE, Stop date: 04/20/16 8:57:00 HOUSE OFFICER Holger Mack fentaNYL (ANES) 2016-04-20 14:47:00 No Route: IV, Drug form: INJ, ONCE, Stop date: 04/20/16 8:47:[address] cristino Dunbarann lidocaine (ANES) 2016-04-20 14:47:00 No Route: IV, Drug form: INJ, ONCE, Stop date: 04/20/16 8:47:[address] cristino Dunbarann propofol (ANES) 2016-04-20 14:47:00 No Route: IV, Drug form: INJ, ONCE, Stop date: 04/20/16 8:47:[address] cristino Arreguin midazolam (ANES) 2016-04-20 14:47:00 No Route: IV, Drug form: SOLN, ONCE, Stop date: 04/20/16 8:47:[address] cristino Arreguin rocuronium (ANES) 2016-04-20 14:47:00 No Route: IV, Drug form: INJ, ONCE, Stop date: 04/20/16 8:47:[address] cristino Dunbarann ciprofloxacin (ANES) 2016-04-20 14:47:00 No Route: IV, Drug form: INJ, ONCE, Stop date: 04/20/16 8:47:00 HOUSE OFFICER Holger Arreguin LR 1000 mL INJ (ANES) 2016-04-20 13:56:00 No Route: IV, Total Volume: 1,000, Start date: 04/20/16 7:56:00 HOUSE OFFICER, Stop date: 04/20/16 8:56:00 HOUSE OFFICER Holger Arreguin Albuterol 0.833 MG/ML / Ipratropium [place] 0.167 MG/ML Inha lant Solution 2016-04-20 13:27:00 Yes Notes: (Same as: Ortiz palomino) Holger Arreguin Calcium Chloride 0.0014 MEQ/ML / Potassi um Chloride 0.004 MEQ/ML / Sodium Chloride 0.103 MEQ/ML / Sodium Lactate 0.028 MEQ/ML Injectable Solution 2016-04-20 13:27:00 No 1,000 mL, Rate: 25 ml/hr, Infuse over: 40 hr, Route: IV, Dosing Weight 68.955 kg, Total Volume: 1,000, Start date: 04/20/16 7:27:00 HOUSE OFFICER, Duration: 1 day, Stop date: 04/21/16 7:26:00 HOUSE OFFICER Holger Arreguin Sodium Chloride 0.154 MEQ/ML Injectable Solution 2016-04-20 13:2 7:00 No 500 mL, Rate: 25 ml/hr, Infu se over: 20 hr, Route: IV, Dosing Weight 68.955 kg, Total Volume: 500, Start date: 04/20/16 7:27:00 HOUSE OFFICER, Duration: 1 day, Stop date: 04/21/16 7:26:00 HOUSE OFFICER Holger monaco Kenalog-10 2016-04-20 12:00:00 No Notes: (S tashia As: Kenalog-10) [facility] Rod[facility] Kenalog-10 2016-04-12 12:00:00 No Notes: (S tashia As: Kenalog-10) [facility] 2015-12-26 19:31:00 No Route: IV, Drug form: INJ, ONCE, Stop date: 12/26/15 14:31:00 [facility] ondansetron (ANES) 2015-12-26 19:31:00 No Route: IV, Drug form: INJ, ONCE, Stop date: 12/26/15 14:31:00 CDT [facility] propofol ([facility]ES) 2015-12-26 19:31:00 No Route: IV, Drug form: INJ, ONCE, Stop date: 12/26/15 14:31:00 [facility] fenta[facility]L (ANES[facility] 2015-12-26 19:31:00 No Route: IV, Drug form: INJ, ONCE, Stop date: 12/26/15 14:31:00 [facility] ciprofloxacin (ANES) (ANES) 2015-12-26 18:43:00 No Route: IV, Drug form: INJ, Start date: 12/26/15 13:43:00 CDT, Stop date: 12/26/15 14:43:00 [facility] 1000 mL INJ (ANES) 2015-12-26 18:43:00 No Route: IV, Total Volume: 1,000, Start date: 12/26/15 13:43:00 CDT, Stop date: 12/26/15 14:43:00 CDT Holger Arreguin Albuterol 0.833 MG/ML / Ipratropium [place] 0.167 MG/ML Inha lant Solution 2015-12-26 17:15:00 No 3 mL, Route: NEB, Dosing Weight 66.364, kg, ONCE, STAT, Start date: 12/26/15 12:15:00 CDT, Stop date: 12/26/15 12:15:00 CDT [facility] Rod[facility] Sodium Chloride 0.154 MEQ/ML Injectable Solution 2015-12-26 17:1 5:00 No 500 mL, Rate: 25 ml/hr, Infu se over: 20 hr, Route: IV, Dosing Weight 66.364 kg, Total Volume: 500, Start date: 12/26/15 12:15:00 CDT, Duration: 30 day, Stop date: 01/25/16 12:14:00 HOUSE OFFICER [facility] rakesh Calcium Chloride 0.0014 MEQ/ML / Potassi um Chloride 0.004 MEQ/ML / Sodium Chloride 0.103 MEQ/ML / Sodium Lactate 0.028 MEQ/ML Injectable Solution 2015-12-26 17:15:00 No 1,000 mL, Rate: 25 ml/hr, Infuse over: 40 hr, Route: IV, Dosing Weight 66.364 kg, Total Volume: 1,000, Start date: 12/26/15 12:15:00 CDT, Duration: 30 day, Stop date: 01/25/16 12:14:00 HOUSE OFFICER Holger Arreguin 24 HR mirabegron 50 MG Extended Release Tablet [Myrbetriq] 2015-12-23 17:13:00 Yes 50 mg = 1 tab, PO, Daily, # 30 tab, 0 Refill(s) Holger Arreguin Finasteride 2015-11-17 14:00:00 No Notes: (Same as: Proscar) "Do Not Crush" Women of childbearing age should not touch or handle broken tablets [facility]uez Theragran-M 2015-11-17 14:00:00 No Notes: (Same as:Heather-M, Bassam-M) WASTE: F/P - Black; E - Municipal Trash Bin Give with food. Holger Arreguin Tamsulosin hydrochloride 0.4 MG Oral Capsule [Flomax] 2015-11-16 16:28:00 Yes 0.4 mg = 1 cap, PO, Daily, # 30 cap, 0 R efill(s) Holger Arreguin Finasteride 2015-11-16 16:10:00 No Notes: (Same as: Proscar) "Do Not Crush" Women of childbearing age should not touch or handle broken tablets Holger Arreguin Theragran-M 2015-11-16 16:10:00 No Notes: (Same as:Thera-M, Theragran-M) WASTE: F/P - Black; E - Municipal Trash Bin Give with food. Holger Dunbarann finasteride 5 mg oral tablet 2015-11-16 15:08:00 Yes 5 mg, PO, Daily, # 30 tab, 0 Refill(s) Holger [place] Amoxicillin 875 MG / Clavulanate 125 MG Oral Tablet [Augment in 875-mg] 2015-11-16 15:08:00 Yes 875 mg = 1 tab, PO, Q12H, X 7 day, # 14 tab, 0 Refill(s) Holger Rodríguez Sodium Chloride 0.154 MEQ/ML Injectable Solution 2015-11-16 10:0 7:00 No 1,000 mL, Rate: 100 ml/hr, I nfuse over: 10 hr, Route: IV, Dosing Weight 62.955 kg, Total Volume: 1,000, Start date: 11/16/15 5:07:00 CDT, Duration: 30 day, Stop date: 12/16/15 5:06:00 CDT [facility] Saline Flush 0.9% 2015-11-16 09:45:00 No Notes: (Same as: BD Posiflush) Holger Arreguin Acetaminophen 325 MG / Hydrocodone Bitartrate 5 MG Oral Tabl et 2015-11-16 09:45:00 No Notes: (Sa me as: [place] 325/5) Do not exceed 4gm/day of acetaminophen. Holger Arreguin Docusate 2015-11-16 09:45:00 No Notes: (Same as: Colace) (Do Not Crush) Holger Arreguin Ondansetron 2015-11-16 09:45:00 No Notes: (Same as: Zofran) MEDICATION WASTE Product Size: 4 mg Product Wasted: ___ mg [facility] Rod[facility]guez Acetaminophen 2015-11-16 09:45:00 No Notes: Do not exceed 4 gm/day. (Same as: Tylenol) Holger Arreguin Myrbetriq 2015-11-16 08:54:00 No 50 mg, PO, Daily, 0 Refill(s) [facility] Phenergan 2015-02-10 19:03:00 No 12.5 mg, Route: IVPB, ONCE, Dosing Weight 68.182, kg, PRN Nausea & Vomiting, Start date: 02/10/15 13:03:00, Stop date: 03/12/15 13:02:00 [facility] Reglan 2015-02-10 18:31:00 No 10 mg, Route: IVP, Drug form: INJ, ONCE, Dosing Weight 68.182, kg, Start date: 02/10/15 12:31:00, Stop date: 02/10/15 12:31:00 [facility] Ondansetron 2015-02-10 17:38:00 No 4 mg, Route: IVP, ONCE, Dosing Weight 68.182, kg, PRN Nausea & Vomiting, Start date: 02/10/15 11:38:00 [facility] Acetamin[facility] 2015-02-10 17:38:00 No 1,000 mg, Route: IVPB, Drug form: INJ, ONCE, Dosing Weight 68.182, kg, PRN Pain Score 1-3, Start date: 02/10/15 11:38:00, Duration: 1 doses or times, Stop date: Limited # of times [facility] Flumazenil 2015-02-10 17:38:00 No 0.2 mg, Route: IVP, PRN, Dosing Weight 68.182, kg, PRN Benzodiazepine Reversal, Initial dose, Start date: 02/10/15 11:38:00, Duration: 30 day, Stop date: 03/12/15 11:37:00 [facility] Naloxone 2015-02-10 17:38:00 No 0.04 mg, Route: IVP, Q2MIN, Dosing Weight 68.182, kg, PRN Narcotic Reversal, Start date: 02/10/15 11:38:00, Duration: 8 doses or times, Stop date: Limited # of times [facility] Fentanyl 2015-02-10 17:38:00 No 50 microgram, Route: IVP, Q5Min, Dosing Weight 68.182, kg, PRN Pain Score 7-10, Start date: 02/10/15 11:38:00, Duration: 2 doses or times, Stop date: Limited # of times [facility] Hydromorphone 2015-02-10 17:38:00 No 0.5 mg, Route: IVP, Q5Min, Dosing Weight 68.182, kg, PRN Pain Score 7-10, Start date: 02/10/15 11:38:00, Duration: 4 doses or times, Stop date: Limited # of times [facility] Meperidine 2015-02-10 17:38:00 No 12.5 mg, Route: IVP, Q30Min, Dosing Weight 68.182, kg, PRN Other -See Comment, For shivering, Start date: 02/10/15 11:38:00, Duration: 2 doses or times, Stop date: Limited # of times [facility] Oxycodone Hydrochloride 1 MG/ML Oral Solution 2015-02-10 17:38:0 0 No 5 mg, Route: NG, Drug form: LIQ, Q4H, Do sing Weight 68.182, kg, PRN Pain Score 4-6, Start date: 02/10/15 11:38:00, Duration: 30 day, Stop date: 03/12/15 11:37:00 [facility] Phenazopyridine hydrochloride 100 MG Oral Tablet [Pyridium] 2015-02-10 16:00:00 No 100 mg = 1 tab, PO, TID, PRN Dysuria, X 2 day, # 6 tab, 0 Refill(s) [facility] Acetaminophen 300 MG / Codeine Phosphate 30 MG Oral Tablet [Tylenol with Codeine #3] 2015-02-10 16:00:00 No 1 - 2 tab, PO, Q4H, PRN Pain, X 2 day, # 20 tab, 0 Refill(s) [facility] oxybutynin 10 mg oral tablet, extended release 2015-02-10 16:00: 00 Yes 10 mg = 1 tab, PO, Daily, # 30 tab, 1 Refill(s) [facility] Morphine 2015-02-10 15:53:00 No 2 mg, Route: IVP, Q3H, Dosing Weight 68.182, kg, PRN Pain Score 1-3, Start date: 02/10/15 9:53:00, Duration: 30 day, Stop date: 03/12/15 9:52:00 Holger meyers Acetaminophen 325 MG / Hydrocodone Bitartrate 5 MG Oral Tabl et 2015-02-10 15:53:00 No 1 tab, Rou te: PO, Dosing Weight 68.182, kg, Q4H, PRN Pain Score 4-6, Start date: 02/10/15 9:53:00, Duration: 30 day, Stop date: 03/12/15 9:52:00 Holger Arreguin Calcium Chloride 0.0014 MEQ/ML / Potassi um Chloride 0.004 MEQ/ML / Sodium Chloride 0.103 MEQ/ML / Sodium Lactate 0.028 MEQ/ML Injectable Solution 2015-02-10 12:34:00 No 1,000 mL, Rate: 25 ml/hr, Infuse over: 40 hr, Route: IV, Dosing Weight 68.182 kg, Total Volume: 1,000, Start date: 02/10/15 6:34:00, Duration: 30 day, Stop date: 03/12/15 6:33:00 Holger Arreguin Diphenhydramine Hydrochloride 25 MG Oral Tablet [Benadryl] 2015-02-02 16:15:00 Yes 25 mg = 1 tab, PO, TID, PRN All ergic reaction, 0 Refill(s) Holger Arreguin Mirabegron (Myrbetriq) 50 Mg Tab.er.24h Mirabegron (Myrbetri q) 50 Mg Tab.er.24h Yes 50 Daily [facility] Tamsulosin Hcl (Flomax*) 0.4 Mg Cap Tamsulosin Hcl (Flomax*) 0.4 Mg C ap Yes .4 As Needed [facility] Mu-Vits-Min Th/Lycopene/Lutein (Centrum Silver Tablet) 1 Each Tablet, 1 Tab Oral Mu-Vits-Min Th/Lycopene/Lutein (Centrum Silver Tablet) 1 Each Tablet, 1 Tab Oral 2019-05-16 00:00:00 No 1 Daily [facility] Hydrocodone Bit/Acetaminophen ([place] 5-325 Tablet) 1 E ach Tablet, Mg Oral Hydrocodone Bit/Acetaminophen ([place] 5-325 Tablet) 1 Each Tablet, Mg Oral 2019-05-12 00:00:00 No Every 4 Hours as nee ded [facility] Vital Signs Vital Name Observation Time Observation Value Comments Source Weight 2018-03-03 17:02:00 [facility] BMI Calculated 2018-03-03 17:02:00 [facility] Height 2018-03-03 17:02:00 162.56 cm [facility] Systolic (mm Hg) 2018-03-03 17:02:00 Celestine rial [facility] Diastolic (mm Hg) 2018-03-03 17:02:00 [facility] Heart Rate 2018-03-03 17:02:00 [facility] Systolic (mm Hg) 2018-02-13 16:25:00 Celestine rial [facility]uez Diastolic (mm Hg) 2018-02-13 16:25:00 [facility] BMI Calculated 2018-02-13 16:25:00 [facility] Weight 2018-02-13 16:25:00 [facility] Height 2018-02-13 16:25:00 162.56 cm [facility] Heart Rate 2018-02-13 16:25:00 [facility] Systolic (mm Hg) 2016-04-20 17:15:00 Celestine rial Rodríguez Diastolic (mm Hg) 2016-04-20 17:15:00 Mem [facility] Systolic (mm Hg) 2016-04-20 16:45:00 Celestine rial Rodríguez Diastolic (mm Hg) 2016-04-20 16:45:00 [facility] Respitory Rate 2016-04-20 16:45:00 [facility] Respitory Rate 2016-04-20 16:30:00 [facility] Systolic (mm Hg) 2016-04-20 16:30:00 Celestine rial Mack Diastolic (mm Hg) 2016-04-20 16:30:00 [facility] Respitory Rate 2016-04-20 16:15:00 [facility] al [facility] Heart Rate 2016-04-20 13:29:00 [facility] Weight 2016-04-11 17:51:00 [facility] Height 2016-04-11 17:51:00 162.56 cm [facility] BMI Calculated 2016-04-11 17:51:00 [facility] Temperature Oral (F) 2016-04-11 16:30:00 98 F [facility] Heart Rate 2016-04-11 16:30:00 [facility] Systolic (mm Hg) 2015-12-26 20:30:00 Celestine rial Mack Diastolic (mm Hg) 2015-12-26 20:30:00 [facility] Systolic (mm Hg) 2015-12-26 20:15:00 Celestine rial [facility]guez Diastolic (mm Hg) 2015-12-26 20:15:00 [facility] Systolic (mm Hg) 2015-12-26 20:00:00 Celestine rial Mack Diastolic (mm Hg) 2015-12-26 20:00:00 [facility] Respitory Rate 2015-12-26 20:00:00 [facility] Respitory Rate 2015-12-26 19:45:00 [facility] Respitory Rate 2015-12-26 19:30:00 [facility] Heart Rate 2015-12-23 17:56:00 [facility] Temperature Oral (F) 2015-12-23 17:56:00 97.1 F [facility] Height 2015-12-23 16:57:00 162.56 cm [facility] BMI Calculated 2015-12-23 16:57:00 [facility] Weight 2015-12-23 16:57:00 [facility] Systolic (mm Hg) 2015-11-16 17:00:00 Celestine rial Rodríguez Diastolic (mm Hg) 2015-11-16 17:00:00 [facility] Respitory Rate 2015-11-16 17:00:00 [facility] Heart Rate 2015-11-16 17:00:00 [facility] Temperature Oral (F) 2015-11-16 17:00:00 97.2 F [facility] Systolic (mm Hg) 2015-11-16 13:00:00 Celestine rial Rodríguez Diastolic (mm Hg) 2015-11-16 13:00:00 Mem [facility] Respitory Rate 2015-11-16 13:00:00 [facility] Heart Rate 2015-11-16 13:00:00 [facility] Temperature Oral (F) 2015-11-16 13:00:00 97.7 F [facility] Weight 2015-11-16 08:45:00 [facility] BMI Calculated 2015-11-16 08:45:00 [facility] Height 2015-11-16 08:45:00 162.56 cm [facility] Systolic (mm Hg) 2015-11-16 08:08:00 Celestine rial Rodríguez Diastolic (mm Hg) 2015-11-16 08:08:00 [facility] Respitory Rate 2015-11-16 08:08:00 [facility] Heart Rate 2015-11-16 08:08:00 [facility] Temperature Oral (F) 2015-11-16 08:08:00 97.6 F [facility] Systolic (mm Hg) 2015-02-10 19:30:00 Celestine rial Rodríguez Diastolic (mm Hg) 2015-02-10 19:30:00 [facility] Systolic (mm Hg) 2015-02-10 19:00:00 Celestine rial [facility]guez Diastolic (mm Hg) 2015-02-10 19:00:00 Mem o[facility] Systolic (mm Hg) 2015-02-10 18:30:00 Celestine rial Rodríguez Diastolic (mm Hg) 2015-02-10 18:30:00 Mem o[facility] Respitory Rate 2015-02-10 16:15:00 [facility] Respitory Rate 2015-02-10 16:00:00 [facility] Respitory Rate 2015-02-10 15:49:00 [facility] Heart Rate 2015-02-10 12:15:00 [facility] Temperature Oral (F) 2015-02-02 16:52:00 98 F [facility] Heart Rate 2015-02-02 16:52:00 [facility] Height 2015-02-02 16:20:00 162.56 cm [facility] Weight 2015-02-02 16:20:00 [facility] BMI Calculated 2015-02-02 16:20:00 [facility] Procedures Procedure Date / Time Performed Performing Clinician [facility] e TURP (transurethral resection of prostate) 2019-05-15 00:00:00 MARICHUY BOOGIE [facility] Cystoscopy with retrograde pyelography 2019-05-15 00:00:00 MARICHUY LENTZ [facility] X-ray of chest, two views 2019-05-12 00:00:00 MARICHUY REYNOSO CH I [facility] uroflowmetry 2016-05-08 06:00:00 Elissa jacobs [facility] Cystoscopy 2015-12-03 00:00:00 [facility] meyers Bilateral inguinal hernia repair<sup>1</sup> [facility] Encounters Start Date/Time End Date/Time Encounter Type Admission Type AttendRUST Care Department Encounter ID Source 2019-05-15 12:52:00 2019-05-16 18:35:00 Discharged Inpatient (obs) 3 MARICHUY REYNOSO [facility] [id number] [facility] 2019-01-22 10:50:00 2019-01-22 10:50:00 [id number] 2019-01-06 11:00:00 2019-01-06 11:00:00 [facility] [place] [place] [id number] 2018-08-28 09:45:00 2018-08-28 23:59:59 [id number] 2018-03-03 11:00:00 2018-03-03 23:59:59 [facility] [id number] 2018-02-13 10:40:00 2018-02-13 23:59:59 [id number] 2016-04-20 05:20:00 2016-04-20 11:45:00 Outpatient Grayson Arteaga am [facility] [id number] 2015-12-26 11:54:00 2015-12-26 15:40:00 Outpatient Grayson Arteaga am [facility] [id number] 2015-11-16 03:04:00 2015-11-16 16:41:00 Outpatient Karan Barnes [facility] [id number] 2015-02-10 05:17:00 2015-02-10 13:40:00 Outpatient Grayson Arteaga am [facility] [id number] 2014-10-07 13:18:00 2014-10-07 23:59:00 Outpatient SonyaKrishna roth [facility] [id number] 2014-03-12 12:30:00 2014-03-12 23:59:00 Outpatient Serenity Jeffery Stephon [place] [id number] Results Test Description Test Time Test Comments Results Result Comments Source Sodium Level 2019-05-16 06:53:00 Test Item Sodium Level (test code = 2951-2) 136 136-145 [facility] [id number] 06:53:00* Test Item Value Reference Range Interpretation Comments Potassium Level (test code = 2823-3) 4.3 3.5-5.1 [facility] [id number] 06:53:00* Test Item Value Reference Range Interpretation Comments Chloride Level (test code = 2075-0) 105 98-107 [facility]ide [id number] 06:53:00* Test Item Value Reference Range Interpretation Comments Carbon Dioxide Level (test code = 2028-9) 25 22-29 [facility] [id number] 06:53:00* Test Item Value Reference Range Interpretation Comments Anion Gap (test code = 52230-5) 10.3 8-16 [facility] Urea [id number] 06:53:00* Test Item Value Reference Range Interpretation Comments Blood Urea Nitrogen (test code = 3094-0) 10 7-26 [facility]Creatinine2020-03-14 06:53:00* Test Item Value Reference Range Interpretation Comments Creatinine (test code = 2160-0) 0.90 0.72-1.25 [facility]Creatinine [id number] 06:53:00* Test Item Value Reference Range Interpretation Comments BUN/Creatinine Ratio (test code = 3097-3) 11 6-25 [facility] HospitalEstimat Glomerular Filtration Rate 2019-05-16 06:53:00* Test Item Value Reference Range Interpretation Comments Estimat Glomerular Filtration Rate (test code = 737096781) > 60 >60 Ranges were taken from the National Kidney Disease Education Program and the [employer] literature.Reference ranges:60 or greater: Scfczk42-80 ( for 3 consecutive months): Chronic kidney disease 15 or less: Kidney failureNocona [facility] HospitalGlucose Yfuiv7454-30-31 06:53:00* Test Item Value Reference Range Interpretation Comments Glucose Level (test code = AOD0434) 103 74-118 [facility] HospitalCalcium Roofm7458-57-46 06:53:00* Test Item Value Reference Range Interpretation Comments Calcium Level (test code = 41086-7) 8.9 8.4-10.2 [facility] HospitalWhite Blood Xmebq1880-44-25 06:32:00* Test Item Value Reference Range Interpretation Comments White Blood Count (test code = 6690-2) 7.25 4.8-10.8 [facility] HospitalRed Blood Jzvmb4840-56-25 06:32:00* Test Item Value Reference Range Interpretation Comments Red Blood Count (test code = 789-8) 4.67 4.3-5.7 [facility] HospitalHemoglobin2020-03-14 06:32:00* Test Item Value Reference Range Interpretation Comments Hemoglobin (test code = 96374-1) 14.3 14.0-18.0 [facility] HospitalHematocrit2020-03-14 06:32:00* Test Item Value Reference Range Interpretation Comments Hematocrit (test code = 4544-3) 44.2 38.2-49.6 [facility] HospitalMean Corpuscular Dgisab1876-47-18 06:32:00* Test Item Value Reference Range Interpretation Comments Mean Corpuscular Volume (test code = 787-2) 94.6 81-99 [facility] HospitalMean Corpuscular Xkapmvvsjo1896-98-38 06:32:00* Test Item Value Reference Range Interpretation Comments Mean Corpuscular Hemoglobin (test code = 785-6) 30.6 28-32 [facility] HospitalMean Corpuscular Hemoglobin Concent 2019-05-16 06:32:00* Test Item Value Reference Range Interpretation Comments Mean Corpuscular Hemoglobin Concent (test code = 786-4) 32.4 31-35 [facility] HospitalRed Cell Distribution Nyqmc6496-55-98 06:32:00* Test Item Value Reference Range Interpretation Comments Red Cell Distribution Width (test code = 70597-5) 13.9 11.7 -14.4 [facility] HospitalPlatelet Vjiqy3822-03-25 06:32:00* Test Item Value Reference Range Interpretation Comments Platelet Count (test code = 777-3) 190 140-360 [facility] HospitalNeutrophils (%) (Auto)2019-05-16 06:32:00 * Test Item Value Reference Range Interpretation Comments Neutrophils (%) (Auto) (test code = 44610-2) 67.1 38.7-80.0 [facility] HospitalLymphocytes (%) (Auto)2019-05-16 06:32:00 * Test Item Value Reference Range Interpretation Comments Lymphocytes (%) (Auto) (test code = 736-9) 19.0 18.0-39.1 [facility] HospitalMonocytes (%) (Auto)2019-05-16 06:32:00* Test Item Value Reference Range Interpretation Comments Monocytes (%) (Auto) (test code = 5905-5) 10.8 4.4-11.3 [facility] HospitalEosinophils (%) (Auto)2019-05-16 06:32:00 * Test Item Value Reference Range Interpretation Comments Eosinophils (%) (Auto) (test code = 713-8) 2.2 0.0-6.0 [facility] HospitalBasophils (%) (Auto)2019-05-16 06:32:00* Test Item Value Reference Range Interpretation Comments Basophils (%) (Auto) (test code = 706-2) 0.6 0.0-1.0 [facility] HospitalIM GRANULOCYTES %2019-05-16 06:32:00* Test Item Value Reference Range Interpretation Comments IM GRANULOCYTES % (test code = IM GRANULOCYTES %) 0.3 0.0- 1.0 [facility] HospitalNeutrophils # (Auto)2019-05-16 06:32:00* Test Item Value Reference Range Interpretation Comments Neutrophils # (Auto) (test code = 751-8) 4.9 2.1-6.9 [facility] HospitalLymphocytes # (Auto)2019-05-16 06:32:00* Test Item Value Reference Range Interpretation Comments Lymphocytes # (Auto) (test code = 75891-7) 1.4 1.0-3.2 [facility] HospitalMonocytes # (Auto)2019-05-16 06:32:00* Test Item Value Reference Range Interpretation Comments Monocytes # (Auto) (test code = 742-7) 0.8 0.2-0.8 [facility] HospitalEosinophils # (Auto)2019-05-16 06:32:00* Test Item Value Reference Range Interpretation Comments Eosinophils # (Auto) (test code = 711-2) 0.2 0.0-0.4 [facility] HospitalBasophils # (Auto)2019-05-16 06:32:00* Test Item Value Reference Range Interpretation Comments Basophils # (Auto) (test code = 704-7) 0.0 0.0-0.1 [facility] HospitalAbsolute Immature Granulocyte (auto 2019-05-16 06:32:00* Test Item Value Reference Range Interpretation Comments Absolute Immature Granulocyte (auto (enrrique t code = Absolute Immature Granulocyte (auto) 0.02 0-0.1 [facility] HospitalMagnesium Rimlc4461-78-02 16:30:00* Test Item Value Reference Range Interpretation Comments Magnesium Level (test code = 81010-2) 1.8 1.3-2.1 [facility] HospitalCHEST 2 MOXYF3732-73-31 12:30:00 [place] [address] Patient Name: SHENA ENAMORADO MR #: [id number] : 1940 Age/Sex: 79/M Req #: [id number] Adm Physician: Ordered by: MARICHUY REYNOSO MD Report #: [id number] Location: OR Ro om/Bed: Procedure: [id number] DX/CHEST 2 VIEWS Exam Date: 05/12/19 Exam Time: 1200 REPORT STATUS: Signed EXAM: CHEST 2 EWS DATE: 05/12/2019 11:43 AM INDICATION: Preoperative evaluation COMPARISON: None FINDINGS: The trachea is midline. The lungs are symm etrically expanded without evidence for large focal consolidation, pneumothora x, or significant pleural effusion. The cardiomediastinal silhouette and pu lmonary vasculature are within normal limits. Degenerative changes noted of th e visualized spine and shoulders. No acute osseous abnormality is identified. IMPRESSION: No acute cardio prominent process identified. Sign ed by: Dr. Onur Wei MD on 05/12/2019 12:31 PM Dictated By: ONUR CHASE MD 1231 Transcribed B y: ANDRSÉ on 05/12/19 1231 COPY TO: MARICHUY REYNOSO MD ELECTROLYTES 2016-04-20 12:54:1812.8[facility] IdvwtgqUNWJASWZRJRW6184-01-24 12:54:1853[facility] YbvaxroRCDXQSIYMAHX2630-67-08 12:54:183.8[facility] YdyiwszXFIYRCZMRPDI9351-26-10 12:54:1824[facility] OvtblsgXRHIEMJLLRAN2776-11-88 12:54:61121Exnfbsjm Mack EYAWMWDDRZNW3879-21-59 12:54:188.8[facility] TnlodrpPUUYAITQAQMW8737-87-45 12:54:1815[facility] PrsbytbMSOJDHZLOLQK0937-29-39 12:54:181.30[facility] DTWHHFCIUWVZ4344-24-31 12:54:89288Pzijqhvg OydaywrAWYPKZJTEVNU6395-81-83 12:54:73500Ohgzvfdr EkwxwkiZLRIFZYZSL9026-80-24 12:54:181.5[facility] JSEDSIAUDS3881-04-75 12:54:181+ *ABN*(04/20/16 6:54 AM)[facility] 2016-04-20 12:54:1810.7[facility] FfubuogYRMCEAWRPH8157-56-46 12:54:1881.0[facility] GglrluzOVTEATIXBO4236-03-76 12:54:181.1[facility] SowsmdiQRTWZOXASZ6968-42-97 12:54:188.0[facility] QmcmapnXUTFAUGUYW9572-30-38 12:54:1811.3[facility] QYXSLEHTAS8753-14-08 12:54:180.3[facility] DwevzvvVDCXTXZSSV5093-96-03 12:54:187.2 [facility] GchgkgzSKZNWYRHTC4511-22-65 12:54:1814.0[facility]annHEMATOLOGY 2016-04-20 12:54:1834.0[facility] KfppdbuRYWHXSMFEV0132-78-91 12:54:1811.0[facility] XntuzfiWCDKNGUXMO8752-65-28 12:54:184.38[facility] FtummpmKQNJBPPTJN5251-72-18 12:54:36376Nbqobjsh EtwihraOKZMTXVSTU5019-41-03 12:54:1816.6[facility] HDEFHGQCIL4876-61-41 12:54:1832.3[facility] PmnufowLQMWPHNIHM2797-12-63 12:54:18* Test Item Value Reference Range Interpretation Comments MCH (test code = MCH) 25.0 pg 27.0-31.0 [facility] TemvihsXRYNGVLPNT6857-37-22 12:54:1877.5[facility]annURINE AND STOOL 2016-04-11 21:12:00Marked *ABN*(04/11/16 3:12 PM)[facility] STOOL 2016-04-11 21:12:001.016[facility] LFRPQ9729-18-04 21:12:006.0 [facility] LBSFY2913-97-10 21:12:00>182[facility] NUESL7524-25-82 21:12:0098[facility] UKBQD6220-57-32 21:12:00 Negative (04/11/16 3:12 PM)[facility] NZMKQ7444-31-29 21:12:00Small *ABN*(04/11/16 3:12 PM)[facility] RXQQQ4953-30-65 21:12:00Negative *NA*(04/11/16 3:12 PM)[facility] TLCGW0252-45-73 21:12:00Large *ABN*(04/11/16 3:12 PM)[facility] OzeohvaCRNQIIQIRPAR5569-13-65 17:24:0010.6[facility] HvauultBLKIHXXAYLMQ1136-89-07 17:24:008.9[facility] JuygzliAVKQLSCFNUEZ7272-29-79 17:24:0013[facility] DpqluvqKHUAHUBWMPFU8576-28-43 17:24:47198Rpnfzcdz Mack NPZMMEIHEFKI6243-65-69 17:24:0026[facility] YoxuugxREQZVFKMORAZ8494-28-81 17:24:00 138[facility] KrdxaetCHHACVPKVHVZ6553-86-28 17:24:003.6[facility] XTZBQTKGTWBU0726-06-61 17:24:06121Noqdjrqw FayohlcBKMDRPSTOFKG2460-31-45 17:24:001.30[facility] WovpfxsMXQGAVWCAOHM7933-01-87 17:24:0053[facility] CFMJENNXEX6677-76-39 17:24:0084.4[facility] DmdqflnLGCDDNQMUE7861-20-12 17:24:00 36.0[facility] XdbjyhbRIBQSZXBCO1579-51-16 17:24:004.26[facility]annHEMATOLOGY 2015-12-23 17:24:006.9[facility] AwxmnysFGUQBLZOVM9885-39-71 17:24:0012.1[facility] FmsdvhlPOJAAZBPBK5813-71-52 17:24:00* Test Item Value Reference Range Interpretation Comments MCH (test code = MCH) 28.3 pg 27.0-31.0 [facility] XbzrldrRALBHHSGKW7365-27-93 17:24:0033.5[facility]annHEMATOLOGY 2015-12-23 17:24:95531Xsjrfrhb YbiwrdnOPGCARQFMT1469-96-33 17:24:007.2[facility] AnzplnuFDIWMEIFNI5832-65-82 17:24:0014.4[facility] AssoyyoQECNCSAJVL7452-07-47 17:24:000.6[facility] WjfkapdDAGFWFHEGS2322-66-70 17:24:002.0[facility] LYKHAHUMHL8551-84-50 17:24:004.3[facility] QhdvuazDKIPVWDMXA8009-82-92 17:24:000.6 [facility] EmdbjstGMEJHAOIWF9219-97-58 17:24:0029.1[facility]annHEMATOLOGY 2015-12-23 17:24:0062.0[facility] ZtqbssoMUCQFSFHPZ1471-01-10 17:24:000.3[facility] OhghikoOVBHWCBHGF6153-51-06 17:24:008.0[facility] XutnxlbCZWKSOXTQW9318-71-29 17:24:00* Test Item Value Reference Range Interpretation Comments PT (test code = PT) 14.2 s 12.0-14.7 [facility] NitculhZSAXWSREWY2268-87-42 17:24:00* Test Item Value Reference Range Interpretation Comments PTT (test code = PTT) 31.4 s 22.9-35.8 [facility] SgvklxoVJBKJMIZTV1750-73-24 17:24:001.08[facility] STOOL 2015-12-23 17:24:62443Jvfiiohf HermannURINE AND WRPEG5939-70-52 17:24:00>182 [facility] MCYQL2894-45-05 17:24:00Large *ABN*(12/23/15 12:24 PM) [facility] EGJTA3805-51-14 17:24:00Negative *NA*(12/23/15 12:24 PM)[facility] DCYVJ2892-86-40 17:24:001.015[facility] JDLIS8827-80-72 17:24:00Slight *ABN*(12/23/15 12:24 PM)[facility] CZFXF0873-73-16 17:24:006.0[facility] TGGNE4765-02-05 17:24:00Negative (12/23/15 12:24 PM)[facility] ENVBD7511-01-45 17:24:00Moderate *ABN*(12/23/15 12:24 PM)[facility]annCHEM ZGIXX5000-03-41 19:31:0048[facility]annCHEM YGPME2887-15-21 19:31:004.6[facility] HermannCHEM CNGDC9775-10-56 19:31:35120Mbcfijji HermannCHEM XDRRU7785-22-40 19:31:001.43 [facility]annCHEM AUVZZ8992-66-50 19:31:0031[facility]annCHEM PANEL 2015-11-16 19:31:0011.6[facility]annCHEM VKXQQ4534-95-83 19:31:0024[facility] HermannCHEM FHFPM7143-01-34 19:31:008.7[facility] HermannCHEM SYYZL9980-16-19 19:31:70672Vyrlqydo HermannCHEM AYLNX7631-25-02 19:31:83625Ckdpzwxk Rodríguez DFQTTQHWVU3760-86-25 14:36:05411Kkygtbiu FvapmbhNGIFIIMFXA9249-37-11 14:36:00* Test Item Value Reference Range Interpretation Comments PTT (test code = PTT) 29.8 s 22.9-35.8 [facility]annCHEM RYRKG0931-24-39 13:01:0040[facility]annCHEM PANEL 2015-11-16 13:01:001.65[facility] WeseaoqJEFSNFVXOLIP5400-66-57 16:37:19359 [facility] NudltkgSDHAOTVVGBPP0461-76-48 16:37:0026[facility] HermannELECTROLYTES 2015-02-02 16:37:53614Hxviefrr OletcqhZNUZJSJVWUHV9631-00-75 16:37:003.8[facility] RdggqaoDLFSPFZFSHMM5437-89-63 16:37:009.3[facility] WzxiixjQLOGVDTOCQOD1918-11-11 16:37:0095[facility] MpvjhggQGLDUPBHJRHC8716-37-01 16:37:008[facility] KLLYQIHCTGUG6688-85-65 16:37:0073[facility] LkvomhzJDUQHNDYYKHW1448-52-70 16:37:00 1.01[facility] AywltxjYWCJSXHBJLQZ1100-40-46 16:37:0011.8[facility] LKKDZOSPTP6170-61-77 16:37:0084.2[facility] KgkfmscMFKIHJMMGX4408-96-70 16:37:00 7.3[facility] WzeugilZONAZBSVWY7739-36-67 16:37:72530Jyubytil HermannHEMATOLOGY 2015-02-02 16:37:0015.7[facility] VskhcuiGNFFZTVYUI6516-79-48 16:37:00* Test Item Value Reference Range Interpretation Comments MCH (test code = MCH) 26.4 pg 27.0-31.0 [facility] TkbkihuSATFEVNMOP5883-32-24 16:37:0031.4[facility]annHEMATOLOGY 2015-02-02 16:37:004.93[facility] LqervhsCNZAXRKBAY5986-02-56 16:37:0041.5[facility] LknwouoLCVGKMDPFR0912-62-71 16:37:0013.0[facility] AeqnsfkAEXBKRPSYT5856-77-20 16:37:007.1[facility] SmmvwntRDRMKXGAWK7260-07-08 16:37:000.1[facility] EDJNENFYKE3750-21-54 16:37:0065.4[facility] MjjyhtvAMLZTKEYHR8763-72-84 16:37:00 21.3[facility] KmsgodhUZBAWYDCDS8259-53-02 16:37:0011.5[facility]annHEMATOLOGY 2015-02-02 16:37:001.0[facility] IovcltfLCETTYDVAJ6086-89-05 16:37:001.5[facility] QskpuvsVGSSGHNVZD9744-69-89 16:37:000.8[facility] LvvwbgnBRSQKPOYOW1383-88-12 16:37:000.1[facility] OgrbgyvRUDFHEYOEZ9598-28-97 16:37:000.8[facility] KGAEURYKGV6663-13-87 16:37:004.6[facility] VsjrvnvOUHFIZTBGG5164-48-19 16:37:00* Test Item Value Reference Range Interpretation Comments PTT (test code = PTT) 32.4 s 22.9-35.8 [facility]vmqsnjNBZOLEPVAH7953-26-81 16:37:000.96[facility]x HermannHEMATOLOGY 2015-02-02 16:37:00* Test Item Value Reference Range Interpretation Comments PT (test code = PT) 13.1 s 12.0-14.7 [facility]
--- OUTSIDE RECORDS SUMMARY | 2019-08-16 16:15 | XMS REPORT | Summary of Care ---
Author Author [facility] ospital Organization [facility] Address Unknown Phone Unavailable Encounter MONICO Jefferson(PRINCESS) [id number] Date(s): 04/20/16 - 04/20/16 [facility] [address] [place] [address]- Discharge Disposition: Home or Self Care Attending Physician: Sahil Arteaga MD Referring Physician: Sahil Arteaga MD Vital Signs 1 2 3 Most recent to oldest [Reference Range]: 162.56 cm (04/11/16 11:51 AM) Height 98 DegF (04/11/16 10:30 AM) Temperature Oral [96.4-99.1 DegF] 116/65 mmHg (04/20/16 11:15 AM) 119/67 mmHg (04/20/16 10:45 AM) 108/50 mmHg (04/20/16 10:30 AM) Blood Pressure [90-140/60-90 mmHg] 19 BRMIN (04/20/16 10:45 AM) 19 BRMIN (04/20/16 10:30 AM) 18 BRMIN (04/20/16 10:15 AM) Respiratory Rate [14-20 BRMIN] 78 bpm (04/20/16 7:29 AM) 63 bpm (04/11/16 10:30 AM) Peripheral Pulse Rate [60-100 bpm] 68.955 kg (04/11/16 11:51 AM) Weight 26.09 m2 (04/11/16 11:51 AM) Body Mass Index Problem List Condition Effective Dates Status Health Status Informan t Hernia, Resolved inguinal(Confirmed) Nocturia(Confirmed) Resolved Urinary Active frequency(Confirmed) Allergies, Adverse Reactions, Alerts Substance Reaction Severity Status NKDA Active Medications albuterol-ipratropium 2.5-0.5 mg inhalation solution 3 mL, Route: NEB, Drug Form: SOLN, Dosing Weight 68.955, kg, ONCE, STAT, Start d ate: 04/20/16 7:27:00 JOB HAND, Stop date: 04/20/16 7:27:00 JOB HAND Notes: (Same as: Duoneb) Start Date: 04/20/16 Stop Date: 04/20/16 Status: Ordered Cipro 500 mg oral tablet 500 mg = 1 tab, PO, Q12H, X 7 day, # 14 tab, 0 Refill(s) Start Date: 04/20/16 Stop Date: 04/27/16 Status: Ordered ciprofloxacin (ANES) Route: IV, Drug form: INJ, ONCE, Stop date: 04/20/16 8:47:00 JOB HAND Start Date: 04/20/16 Stop Date: 04/20/16 Status: Completed dexamethasone (ANES) Route: IV, Drug form: INJ, ONCE, Stop date: 04/20/16 8:57:00 JOB HAND Start Date: 04/20/16 Stop Date: 04/20/16 Status: Completed fentaNYL (ANES) Route: IV, Drug form: INJ, ONCE, Stop date: 04/20/16 8:47:00 JOB HAND Start Date: 04/20/16 Stop Date: 04/20/16 Status: Completed glycopyrrolate (ANES) Route: IV, Drug form: INJ, ONCE, Stop date: 04/20/16 9:31:00 JOB HAND Start Date: 04/20/16 Stop Date: 04/20/16 Status: Completed Kenalog-10 25 mg, 2.5 mL, Route: MISC, Drug form: INJ, ONCALL, Start date: 04/12/16 6:00:00 JOB HAND, Duration: 24 hr, Stop date: 04/13/16 5:59:00 JOB HAND Notes: (Same As: Kenalog-10) Start Date: 04/12/16 Stop Date: 04/19/16 Status: Deleted Kenalog-10 25 mg, 2.5 mL, Route: MISC, Drug form: INJ, ONCALL, Start date: 04/20/16 6:00:00 JOB HAND, Duration: 24 hr, Stop date: 04/21/16 5:59:00 JOB HAND Notes: (Same As: Kenalog-10) Start Date: 04/20/16 Stop Date: 04/20/16 Status: Discontinued Lactated Ringers 1,000 mL 1,000 mL, Rate: 25 ml/hr, Infuse over: 40 hr, Route: IV, Dosing Weight 68.955 kg , Total Volume: 1,000, Start date: 04/20/16 7:27:00 JOB HAND, Duration: 1 day, Stop d ate: 04/21/16 7:26:00 JOB HAND Start Date: 04/20/16 Stop Date: 04/20/16 Status: Discontinued Levsin SL 0.125 mg sublingual tablet 0.125 mg = 1 tab, SL, Q4H, PRN Bladder Spasm, # 30 tab, 0 Refill(s) Start Date: 04/20/16 Status: Ordered lidocaine (ANES) Route: IV, Drug form: INJ, ONCE, Stop date: 04/20/16 8:47:00 JOB HAND Start Date: 04/20/16 Stop Date: 04/20/16 Status: Completed LR 1000 mL INJ (ANES) Route: IV, Total Volume: 1,000, Start date: 04/20/16 7:56:00 JOB HAND, Stop date: 8:56:00 JOB HAND Start Date: 04/20/16 Stop Date: 04/20/16 Status: Completed midazolam (ANES) Route: IV, Drug form: SOLN, ONCE, Stop date: 04/20/16 8:47:00 JOB HAND Start Date: 04/20/16 Stop Date: 04/20/16 Status: Completed neostigmine (ANES) Route: IV, Drug form: INJ, ONCE, Stop date: 04/20/16 9:31:00 JOB HAND Start Date: 04/20/16 Stop Date: 04/20/16 Status: Completed ondansetron (ANES) Route: IV, Drug form: INJ, ONCE, Stop date: 04/20/16 8:57:00 JOB HAND Start Date: 04/20/16 Stop Date: 04/20/16 Status: Completed propofol (ANES) Route: IV, Drug form: INJ, ONCE, Stop date: 04/20/16 8:47:00 JOB HAND Start Date: 04/20/16 Stop Date: 04/20/16 Status: Completed Pyridium 100 mg oral tablet 100 mg = 1 tab, PO, TID, PRN Dysuria, X 5 day, # 15 tab, 0 Refill(s) Start Date: 04/20/16 Stop Date: 04/25/16 Status: Ordered rocuronium (ANES) Route: IV, Drug form: INJ, ONCE, Stop date: 04/20/16 8:47:00 JOB HAND Start Date: 04/20/16 Stop Date: 04/20/16 Status: Completed sodium chloride 0.9% 500 ml INJ 500 mL 500 mL, Rate: 25 ml/hr, Infuse over: 20 hr, Route: IV, Dosing Weight 68.955 kg, Total Volume: 500, Start date: 04/20/16 7:27:00 JOB HAND, Duration: 1 day, Stop date: 04/21/16 7:26:00 JOB HAND Start Date: 04/20/16 Stop Date: 04/20/16 Status: Discontinued tramadol 50 mg oral tablet 50 mg = 1 tab, PO, Q6H, PRN Pain Score 4-6, X 7 day, # 30 tab, 0 Refill(s) Start Date: 04/20/16 Stop Date: 04/27/16 Status: Ordered Results ELECTROLYTES Most recent to 1 oldest [Reference Range]: Sodium Lvl [135-145 137 mEq/L mEq/L] (04/20/16 6:54 AM) Potassium Lvl 3.8 mEq/L [3.5-5.1 mEq/L] (04/20/16 6:54 AM) Chloride Lvl [95-109 104 mEq/L mEq/L] (04/20/16 6:54 AM) CO2 [24-32 mEq/L] 24 mEq/L (04/20/16 6:54 AM) AGAP [10.0-20.0 12.8 mEq/L mEq/L] (04/20/16 6:54 AM) CHEM PANEL Most recent to 1 oldest [Reference Range]: Creatinine Lvl 1.30 mg/dL [0.50-1.40 mg/dL] (04/20/16 6:54 AM) eGFR 53 mL/min/1.73m2 1 *NA* (04/20/16 6:54 AM) BUN [7-22 mg/dL] 15 mg/dL (04/20/16 6:54 AM) Glucose Lvl [70-99 111 mg/dL mg/dL] *HI* (04/20/16 6:54 AM) Calcium Lvl 8.8 mg/dL [8.5-10.5 mg/dL] (04/20/16 6:54 AM) 1Result Comment: The eGFR is calculated [...] 1 oldest [Reference Range]: UA Turbidity [Clear] Marked *ABN* (04/11/16 3:12 PM) UA Color Red *NA* (04/11/16 3:12 PM) UA pH [5.0-8.0] 6.0 (04/11/16 3:12 PM) UA Spec Grav 1.016 [<=1.030] (04/11/16 3:12 PM) UA Glucose [Negative Negative mg/dL mg/dL] *NA* (04/11/16 3:12 PM) UA Blood [Negative] Large *ABN* (04/11/16 3:12 PM) UA Ketones [Negative Negative mg/dL mg/dL] *NA* (04/11/16 3:12 PM) UA Protein [Negative 100 mg/dL mg/dL] *ABN* (04/11/16 3:12 PM) UA Urobilinogen <=1.0 mg/dL [0.1-1.0 mg/dL] *NA* (04/11/16 3:12 PM) UA Bili [Negative] Negative *NA* (04/11/16 3:12 PM) UA Leuk Est Small [Negative] *ABN* (04/11/16 3:12 PM) UA Nitrite Negative [Negative] (04/11/16 3:12 PM) UA WBC [0-5 /HPF] 98 /HPF *HI* (04/11/16 3:12 PM) UA RBC [0-2 /HPF] >182 /HPF *HI* (04/11/16 3:12 PM) UA Bacteria [None Occasional /HPF Seen /HPF] *NA* (04/11/16 3:12 PM) UA Sq Epi None Seen *NA* (04/11/16 3:12 PM) UA Mucus [None Seen Few /LPF /LPF] *NA* (04/11/16 3:12 PM) HEMATOLOGY Most recent to 1 oldest [Reference Range]: WBC [3.7-10.4 K/CMM] 14.0 K/CMM *HI* (04/20/16 6:54 AM) RBC [4.70-6.10 4.38 M/CMM M/CMM] *LOW* (04/20/16 6:54 AM) Hgb [14.0-18.0 g/dL] 11.0 g/dL *LOW* (04/20/16 6:54 AM) Hct [42.0-54.0 %] 34.0 % *LOW* (04/20/16 6:54 AM) MCV [80.0-94.0 fL] 77.5 fL *LOW* (04/20/16 6:54 AM) MCH [27.0-31.0 pg] 25.0 pg *LOW* (04/20/16 6:54 AM) MCHC [32.0-36.0 32.3 g/dL g/dL] (04/20/16 6:54 AM) RDW [11.5-14.5 %] 16.6 % *HI* (04/20/16 6:54 AM) Platelet [133-450 288 K/CMM K/CMM] (04/20/16 6:54 AM) MPV [7.4-10.4 fL] 7.2 fL *LOW* (04/20/16 6:54 AM) Segs [45.0-75.0 %] 81.0 % *HI* (04/20/16 6:54 AM) Lymphocytes 8.0 % [20.0-40.0 %] *LOW* (04/20/16 6:54 AM) Monocytes [2.0-12.0 10.7 % %] (04/20/16 6:54 AM) Basophils [0.0-1.0 0.3 % %] (04/20/16 6:54 AM) Segs-Bands # 11.3 K/CMM [1.5-8.1 K/CMM] *HI* (04/20/16 6:54 AM) Lymphocytes # 1.1 K/CMM [1.0-5.5 K/CMM] (04/20/16 6:54 AM) Monocytes # [0.0-0.8 1.5 K/CMM K/CMM] *HI* (04/20/16 6:54 AM) Microcyte [None 1+ Seen] *ABN* (04/20/16 6:54 AM) Immunizations No data available for this section Procedures Procedure Date Related Diagnosis Body Site Cystoscopy 12/2015 Bilateral inguinal hernia repair1 Laser ablation of prostate 1with mesh Social History Social History Type Response Substance Abuse Use: None. Alcohol Never Smoking Status Never smoker; Exposure to T obacco Smoke None; Cigarette Smoking Last 365 Days No; Reg Smoking Cessation Counseli ng No Assessment and Plan No data available for this section
--- NOTE | 2019-08-16 19:00 | NUR ---
16 F Decker attempted and failed
[2019-08-16 19:13] LABS: COLOR,URINE YELLOW (YELLOW)
[2019-08-16 19:14] LABS: BILIRUBIN,URINE NEGATIVE (NEGATIVE); CLARITY,URINE CLOUDY (CLEAR); KETONES,URINE NEGATIVE (NEGATIVE); LEUKOCYTE ESTERASE ,URINE LARGE (NEGATIVE); NITRITE,URINE NEGATIVE (NEGATIVE); PROTEIN,URINE DIPSTICK 1+ (NEGATIVE); URINE UROBILINOGEN 0.2 mg/dL (0.2 - 1)
[2019-08-16 19:39] LABS: WBC,URINE (MAN) >50 /HPF (0-5)
[2019-08-16 19:40] LABS: BACTERIA,URINE MANY /HPF; EPITHELIAL CELLS,URINE FEW /LPF
[2019-08-16] MEDS ORDERED: CEFTRIAXONE SOD 1 GM VIAL ONE (20:08)
--- NOTE | 2019-08-16 20:11 | Emergency Department Note ---
History of Present Illnes History of Present Illness Chief Complaint: Genitourinary History of Present Illness This is a 79 year old male, with no significant past medical history other than prostatism, who presents with a one-week history of decreased urinary stream and increased urinary frequency. Patient states that he had a prostate procedure back in 05/2019 due to a "bladder neck contracture," and this allowed him to void normally. Over the past week, those symptoms that he had prior to surgery have been reviewed have returned. He denies any dysuria, fever, chills, nausea, or vomiting. He states that he is only passing a small amount of urine at a time. He denies any abdominal pain. He does describe some "fullness" in the right flank area. Historian: Patient Arrival Mode: Car Monumental Stonemason Required: No Onset (how long ago): week(s) (1) Location: urinary system Quality: slow, weak urine stream Radiation: Reports non-radiation Severity: moderate Onset quality: gradual Duration (how long): week(s) (1) Timing of current episode: constant Progression: worsening Chronicity: recurrent Context: Reports recent surgery (05/2019); Denies trauma/injury, Denies non-compliance w/ medications Relieving factors: none Exacerbating factors: none Associated symptoms: Reports denies other symptoms; Denies cough, Denies fever/chills Treatments prior to arrival: none Risk factors: Previous prostate procedures Previous service: medications given Past Medical/Family History Physician Review I have reviewed the patient's past medical and family history. Any updates have been documented here. Past Medical History Recent Fever: No Clinical Suspicion of Infectio: No New/Unexplained Change in Ment: No Past Medical History: None Other Medical History: prostate Past Surgical History: Orthopedic Implants Other Surgery: Prostate R foot fractures L hand fractures Social History Smoking Cessation: Never Smoker Counseling Performed: No Alcohol Use: None Any Illegal Drug Use: No TB Exposure/Symptoms: No Physically hurt or threatened: No Family History Family history of heart diseas: No Other Last Tetanus: UNK Any Pre-Existing Lines (PICC,: No Is patient up to date on immun: Yes Last Flu: none Last Pneumovax: UTD Review of Systems Review of Systems Constitutional: Reports no symptoms EENTM: Reports no symptoms Cardiovascular: Reports no symptoms; Denies chest pain, Denies edema Respiratory: Reports no symptoms Gastrointestinal: Reports no symptoms Genitourinary: Reports frequency; Denies dysuria, Denies hematuria, Denies pain Musculoskeletal: Reports no symptoms Integumentary: Reports no symptoms Neurological: Reports no symptoms Review of other systems: All other systems negative Physical Exam Related Data Allergies: Coded Allergies: No Known Allergies (Unverified , 02/26/12) Triage Vital Signs Vital Signs Date Time Temp Pulse Resp B/P (MAP) Pulse Ox O2 Delivery O2 Flow Rate FiO2 08/16/19 16:55 98.7 66 18 160/84 98 Vital signs reviewed: Yes Physical Exam CONSTITUTIONAL Constitutional: Present well-developed, Present well-nourished; Absent distressed, Absent ill appearing HENT HENT: Present normocephalic, Present atraumatic, Present oropharynx clear/moist, Present nose normal HENT L/R: Present left ext ear normal, Present right ext ear normal EYES Eyes: Reports PERRL, Reports conjunctivae normal NECK PULMONARY Pulmonary: Present effort normal, Present breath sounds normal CARDIOVASCULAR Cardiovascular: Present regular rhythm, Present heart sounds normal, Present capillary refill normal, Present normal rate, Present murmur (II/ systolic murmur) GASTROINTESTINAL Abdominal: Present soft, Present nontender, Present bowel sounds normal; Absent distension, Absent tender, Absent guarding, Absent left CVA tenderness, Absent right CVA tenderness GENITOURINARY Genitourinary: Present exam deferred SKIN Skin: Present warm, Present dry MUSCULOSKELETAL Musculoskeletal: Present ROM normal NEUROLOGICAL Neurological: Present alert, Present oriented x 3 PSYCHOLOGICAL Psychological: Present mood/affect normal, Present behavior normal, Present judgement normal Results Laboratory Laboratory Laboratory Tests Test 08/16/19 17:40 Urine Color Yellow (YELLOW) Urine Clarity Cloudy (CLEAR) Urine pH 6.5 (5 - 7) Urine Specific [place] 1.020 (1.010-1.025) Urine Protein 1+ (NEGATIVE) Urine Glucose (UA) Negative (NEGATIVE) Urine Ketones Negative (NEGATIVE) Urine Blood Moderate (NEGATIVE) Urine Nitrite Negative (NEGATIVE) Urine Bilirubin Negative (NEGATIVE) Urine Urobilinogen 0.2 mg/dL (0.2 - 1) Urine Leukocyte Esterase Large (NEGATIVE) Urine RBC 11-20 /HPF (0-5) Urine WBC >50 /HPF (0-5) Urine Epithelial Cells Few /LPF (NONE) Urine Bacteria Many /HPF (NONE) Lab results reviewed: Yes Laboratory comments CMP - nl, except for Cr = 1.4 (baseline Cr = 0.9 in 05/16/2019); CBC - Normal Post-void residual = 375 ml Assessment & Plan Medical Decision Making [facility] 21:03 - case discussed with Dr. Sanford Goldman several times, and after a point post void residual of 375 and else was obtained, and our inability to place a Decker catheter here in the ED on the due to his enlarged prostate and/or scar tissue, he advised admission to the hospital so that he could place a catheter in the morning, which may require a trip to the OR. Patient is nothing by mouth after midnight. The floor was instructed to contact Dr. Goldman for further admitting orders. Patient is agreeable to admission. Patient did receive an injection of Rocephin to treat the UTI and a urine culture was also sent. 21:05 - case discussed with Dr. Ferdinand Robbins, courtesy van driver interventional neuroradiologist, who was agreeable to admitting patient, with david Galvan from a urologic standpoint. Assessment & Plan Final Impression: (1) Urinary retention (2) UTI (urinary tract infection) (3) Urinary frequency Depart Disposition: ADMITTED Last Vital Signs Date Time Temp Pulse Resp B/P (MAP) Pulse Ox O2 Delivery O2 Flow Rate FiO2 08/16/19 16:55 98.7 66 18 160/84 98 Home Meds Reported Medications Mu-Vits-Min Th/Lycopene/Lutein (CENTRUM SILVER TABLET) 1 Each Tablet, 1 TAB PO DAILY 08/17/19 Finasteride (FINASTERIDE) 5 Mg Tablet, 5 MG PO DAILY, #30 TAB 08/17/19 Tamsulosin Hcl* (FLOMAX*) 0.4 Mg Cap, 0.4 MG PO DAILY@1700, #30 CAP 30 minutes after dinner 05/12/19 Mirabegron (MYRBETRIQ) 50 Mg Tab.er.24h, 50 MG PO DAILY 05/12/19 Medications in the ED Ceftriaxone Sodium 1 gm STK-MED ONCE .ROUTE ; Start 08/16/19 at 20:08; Stop 08/16/19 at 20:02; Status DC Ceftriaxone Sodium 50 ml @ 100 mls/hr ONCE ONCE IV ; Start 08/16/19 at 20:15; Stop 08/16/19 at 20:44; Status UNV ROYCE OCHOA MD Aug 16, 2019 20:11
[2019-08-16] MEDS ORDERED: CEFTRIAXONE SOD 1 GM/NS 50 ML 50 ML IV ONE (20:15)
--- NOTE | 2019-08-16 22:45 | NUR ---
Patient arrived from [facility] via EMS. Patient A&O. POC/ Meds reviewed, questions answered. Instructed to call for assistance or on the onset of pain or SOB. Call light within reach. Teaching provided on pain and fall/safety. Oriented to room and environment. Will continue to monitor.
[2019-08-16 22:50] VITALS: BP 152/78
[2019-08-16 23:00] VITALS: BP 152/78
--- NOTE | 2019-08-16 23:19 | NUR ---
Left message with Dr Sanford Goldman answering service ( [facility]) for orders. Awaiting call back.
--- NOTE | 2019-08-16 23:22 | NUR ---
Spoke with Dr Janet Goldman regarding order to call for further orders once patient arrived from [facility]. Bladder scanned here at 323ml. Order: have urology cart, langley kit and couple flushes at bedside. Will see patient in AM.
[2019-08-16 23:50] VITALS: BP 152/78
[2019-08-17] VITALS (8 sets, daily range): BP systolic 105–170; BP diastolic 61–95
[2019-08-17] MEDS ORDERED: FINASTERIDE5 MG PO (00:22)
[2019-08-17] MEDS ORDERED: CENTRUM SILVER1 EAC3 PO (00:22)
--- NOTE | 2019-08-17 05:43 | NUR ---
H&P cc: urinary retention HPI: 79yoM, PCP Dr.C. Jeffery, developed urinary retention and increased frequency. PMH: B/L incarcerated inguinal hernia s/p repair, BPH, UTI, BPH PSHx: incarcerated hernia 2012, prostate? Allergies; see emr Fh/SH; single; no cigs meds see mAR ROS; no f/c/s/N/V/D/ARRIOLA/cp/sob/skin rash/back pain/dizziness/confusion v/s; revd PE tired appearing aniceric ns1s2; 3/6 systolic murmur soft nt nd no langley no e/t skin dry flat affect a&ox3; martinez labs/meds revd A/P: Urinary retention- urology consulted UTI- IV ceftriaxone BPH- s/p cystoscopy and TURP? flomax Prop: scd DIspo: check labs Ferdinand Jj MD, PhD.
[2019-08-17] MEDS ORDERED: ACETAMINOPHEN 325 MG TAB PO PRN (05:45)
[2019-08-17] MEDS ORDERED: CEFTRIAXONE SOD 1 GM/NS 50 ML 50 ML IV SCH ×2 (05:45→21:00)
[2019-08-17] MEDS ORDERED: DOCUSATE SODIUM 100 MG CAP PO PRN (05:45)
[2019-08-17] MEDS ORDERED: ONDANSETRON HCL INJ 2MG/ML 2ML 2 MG/ML VIAL IV PRN (05:45)
[2019-08-17] MEDS ORDERED: ZOLPIDEM TARTRATE 5 MG TAB PO PRN (05:45)
--- NOTE | 2019-08-17 06:50 | NUR ---
Bedside report and walking rounds completed with oncoming nurse. Patient in bed with call light within reach. No issues or concerns noted.
--- NOTE | 2019-08-17 07:00 | NUR ---
Received bedside shift report from off going night nurse. Patient in stable condition, no s/s of distress noted. Bed in lowest position and locked. Call light within reach.
[2019-08-17 08:03] LABS: BASOPHILS # (AUTO) 0.1 (0.0-0.1); BASOPHILS % 0.9 % (0.0-1.0); EOSINOPHILS # (AUTO) 0.1 (0.0-0.4); EOSINOPHILS % 1.7 % (0.0-6.0); HEMATOCRIT 47.2 % (38.2-49.6); HEMOGLOBIN 15.4 g/dL (14.0-18.0); LYMPHOCYTES # (AUTO) 1.8 (1.0-3.2); LYMPHOCYTES % 33.8 % (18.0-39.1); MEAN CORPUSCULAR HGB CONC 32.6 g/dL (31-35); MEAN CORPUSCULAR VOLUME 91.8 fL (81-99); MONOCYTES # (AUTO) 0.6 (0.2-0.8); MONOCYTES % 11.6 % (4.4-11.3); NEUTROPHILS # (AUTO) 2.8 (2.1-6.9); NEUTROPHILS % 51.8 % (38.7-80.0); PLATELET COUNT 191 x10e3/uL (140-360); RED BLOOD COUNT 5.14 x10e6/uL (4.3-5.7); RED CELL DISTRIBUTION WIDTH 13.5 % (11.7-14.4)
[2019-08-17 08:20] LABS: ANION GAP 15.1 mmol/L (8-16); BLOOD UREA NITROGEN 11 mg/dL (7-26); BUN/CREATININE RATIO 10 (6-25); CARBON DIOXIDE 21 mmol/L (22-29); CHLORIDE 105 mmol/L (98-107); EST GLOMERULAR FILTRATION RATE > 60 ML/MIN (60-); GLUCOSE 98 mg/dL (74-118); POTASSIUM 4.1 mmol/L (3.5-5.1); SODIUM 137 mmol/L (136-145)
[2019-08-17 08:41] LABS: MAGNESIUM 2.1 MG/DL (1.3-2.1); PHOSPHORUS 2.9 MG/DL (2.3-4.7)
[2019-08-17] MEDS: FINASTERIDE 5 MG TAB PO SCH (09:17)
[2019-08-17] MEDS ORDERED: B&O 60MG R/S 60 MG SUPP PR ONE (12:04)
[2019-08-17] MEDS ORDERED: IOPAMIDOL 300MG/ML 50ML INFUS..BTL IV ONE (12:04)
--- NOTE | 2019-08-17 12:47 | NUR ---
Patient off the unit via wheelchair - Went to the OR. Patient in stable condition, no s/s of distress noted.
[2019-08-17] MEDS ORDERED: INDIGOTINDISULFONATE SODIUM 8 MG/ML AMP IJ ONE (14:17)
[2019-08-17] MEDS ORDERED: FUROSEMIDE INJ 10 MG/ML 4 ML VIAL ONE (14:18)
[2019-08-17] MEDS ORDERED: ETOMIDATE 2 MG/ML 10 ML INJ IV ONE (14:18)
[2019-08-17] MEDS ORDERED: PROPOFOL IV EMULSION 10 MG/ML 20 ML VIAL ONE (14:18)
[2019-08-17] MEDS ORDERED: SEVOFLURANE INHAL SOLN 250 ML PEN BTL ONE (14:18)
[2019-08-17] MEDS ORDERED: ONDANSETRON HCL INJ 2MG/ML 2ML 2 MG/ML VIAL ONE (14:18)
[2019-08-17] MEDS ORDERED: EPHEDRINE SULFATE INJ 50 MG/ML VIAL ONE (14:18)
[2019-08-17] MEDS ORDERED: LIDOCAINE HCL 2% LOCAL INJ 5 ML SDV VIAL INJ ONE (14:18)
[2019-08-17] MEDS ORDERED: MEPERIDINE HCL INJ 25 MG/ML VIAL ONE (14:51)
[2019-08-17] MEDS ORDERED: FENTANYL CITRATE/PF 100MCG/2 ML INJ ONE (15:23)
--- NOTE | 2019-08-17 15:44 | NUR ---
Patient arrived back to the unit @ 1540. Patient in stable condition, no s/s of distress noted. Decker draining blue tinted urine into drainage bag. bed in lowest postion and locked. Call light within reach.
[2019-08-17] MEDS ORDERED: B&O 60MG R/S 60 MG SUPP PR PRN (17:00)
[2019-08-17] MEDS: TAMSULOSIN HCL 0.4 MG CAP PO SCH (17:05)
--- NOTE | 2019-08-17 19:13 | NUR ---
Completed rounding and bedside shift report with the on coming night nurse. Patient in stable condition, No s/s of distress noted. Decker applied draining into drainage bag. Bed in lowest position and locked. Call light within reach.
[2019-08-17] MEDS ORDERED: SODIUM CHLORIDE 0.9% 250ML 250 ML ONE (19:45)
[2019-08-18] VITALS (9 sets, daily range): BP systolic 107–126; BP diastolic 55–69
--- NOTE | 2019-08-18 07:35 | NUR ---
Left message for Dr Goldman ( [facility]) regarding urine culture results. Awaiting call back.
--- NOTE | 2019-08-18 07:45 | NUR ---
ASSUMED. CARE. AAOX3. ACYANOTIC. RESTING IN BED. NO DISTRESS NOTED. URINARY NUNEZ CATHETER PATENT WITH BLOOD-TINGED URINE. CALL LIGHT IN REACH. SIDE RAILS UP X2. BED LOW. INSTRUCTED PATIENT TO CALL FOR ASSISTANCE. VERBALIZED UNDERSTANDING.
[2019-08-18] MEDS: FINASTERIDE 5 MG TAB PO SCH (09:27)
--- NOTE | 2019-08-18 11:40 | NUR ---
REPORT RECEIVED BY NURSE. PREPARING TO MOVE PATIENT TO ROOM 208
--- NOTE | 2019-08-18 11:53 | NUR ---
AAOX3. ACYANOTIC. PATIENT TRANSPORTED VIA WHEELCHAIR TO ROOM 208. ALL BELONGINGS WITH PATIENT. NO DISTRESS NOTED.
[2019-08-18] MEDS ORDERED: SODIUM CHLORIDE 0.9% 250ML 250 ML ONE (12:47)
[2019-08-18] MEDS: MEROPENEM 500MG/ NS 50ML 50 ML IV SCH ×2 (12:55→20:01)
--- NOTE | 2019-08-18 17:37 | NUR ---
Discontinuing skilled PT services since patient is independent/Mod I in functional mobility. Thank you. Addendum: 08/18/19 at 1738 by Filemon mendoza PT Amended: Links added.
[2019-08-18] MEDS: TAMSULOSIN HCL 0.4 MG CAP PO SCH (18:30)
[2019-08-18] MEDS: SODIUM CHLORIDE FLUSH 10 ML SYR INJ PRN (19:40)
--- NOTE | 2019-08-18 20:13 | NUR ---
RECEIVED BEDSIDE SHIFT REPORT FROM PREVIOUS NURSE. CALL LIGHT WITHIN REACH. PATIENT IN BED.
--- NOTE | 2019-08-18 20:56 | Consultation ---
DATE OF CONSULTATION: REASON FOR CONSULTATION: UTI. HISTORY OF PRESENT ILLNESS: This patient who is a 79-year-old male. The patient who comes in with fever and chills and pain. He was diagnosed with urinary retention. The patient was seen by Urology. The patient underwent Decker catheter, TURP. His culture shows Enterococcus. The patient has a history of COPD. PAST SURGICAL HISTORY: Recently underwent TURP. ALLERGIES: NKA. SOCIAL HISTORY: There is no smoking, drug abuse, or alcohol abuse. FAMILY HISTORY: Unremarkable. REVIEW OF SYSTEMS: At the present time, HEENT: Negative. PULMONARY: Negative. CARDIAC: Negative. : Currently negative. PHYSICAL EXAMINATION: GENERAL: He is currently alert, oriented, does not seem to be in acute distress. VITAL SIGNS: Stable, currently afebrile. HEENT: He is not icteric. NECK: Supple. CHEST: Clear. HEART: S1, S2. ABDOMEN: Soft. IMPRESSION: 1. Urinary tract infection, present on admission. 2. Urinary retention, present on admission, status post transurethral resection of the prostate, status post Decker. Currently, he is doing better. Await urine culture and sensitivity. Continue current choice of IV antibiotic as ordered. Recheck CBC. Recheck Chem panel. Further recommendations pending on the final urine culture and sensitivity. Discussed with the patient. Discussed with medical team. We will follow. MD PRINCE Sauceda/ALBA /[id number]
[2019-08-19] VITALS (8 sets, daily range): BP systolic 115–132; BP diastolic 62–77
[2019-08-19] MEDS: MEROPENEM 500MG/ NS 50ML 50 ML IV SCH ×3 (03:59→19:54)
--- NOTE | 2019-08-19 07:00 | NUR ---
Received patient ambulating inside the room with non-skid socks on. Respiration even and unlabored without SOB. Denies pain. Urinary catheter in placed, intact and secured to leg bag. Draining dark yellow-colored urine to bag. Call light in reach.
--- NOTE | 2019-08-19 07:42 | NUR ---
GAVE BEDSIDE SHIFT REPORT TO ONCOMING NURSE. CALL LIGHT WITHIN REACH. PATIENT IN BED. NUNEZ DRAINING WELL
[2019-08-19] MEDS: FINASTERIDE 5 MG TAB PO SCH (08:25)
--- NOTE | 2019-08-19 11:39 | Progress Note ---
DATE: SUBJECTIVE: The patient is seen and evaluated. Available labs and notes reviewed. Discussed with Dr. Wade. Discussed with staff. REVIEW OF SYSTEMS: Some suprapubic discomfort post surgery. The patient with a Decker catheter and otherwise no nausea, vomiting, fever, chills, chest pain, shortness of breath, headache, rash, or dysuria. PHYSICAL EXAMINATION: VITAL SIGNS: Temperature is 97.5, pulse 77, respirations 20, and blood pressure 123/70. GENERAL: Alert and oriented, no acute distress. CV: S1, S2. CHEST: Equal expansion. Clear to auscultation. No acute distress. ABDOMEN: Soft, nontender. No distention. HEENT: Moist. No pallor. No JVD. EXTREMITIES: Moves all. No significant edema. The patient with a Decker catheter. MEDICATIONS: The patient is on meropenem antibiotic maravilla. SEROLOGY: Coronavirus PCR is not detected on 08/16/2019. LABORATORY STUDIES: No new CBC or BMP are available. Last white count was 5.36 and platelet of 191 with sodium of 137, potassium 4.1 and creatinine 1.1 on 08/17/2019. MICROBIOLOGY: Urine culture showing ESBL Klebsiella oxytoca. RADIOLOGY STUDIES: No new radiology studies available. ASSESSMENT AND PLAN: 1. Urinary tract infection on admission. 2. Urinary retention. 3. The patient is status post TURBNC and Decker catheter placement by Dr. Goldman. The patient growing ESBL in the urine. Antibiotics changed to meropenem. Discussed with Dr. Goldman. The patient needs further surgery for his bladder diverticula. Continue with antibiotics and further management of this patient is based on daily findings on laboratory and physical examination. Please refer to chart for more information. Dictated by Ronald Pulliam PA-C (Al) Michael Wade MD /MODL /[id number]
--- NOTE | 2019-08-19 12:32 | NUR ---
IM- progress note O/N see below ROS; no f/c/s/N/V/D/ARRIOLA/cp/sob/skin rash/back pain/dizziness/confusion v/s; revd PE tired appearing aniceric ns1s2; 3/6 systolic murmur soft nt nd no langley no e/t skin dry flat affect a&ox3; martinez labs/meds revd A/P: Urinary retention- urology consulted ESBL Klebsiella Oxytoca UTI- change to Merrem BPH- s/p cystoscopy and TURP? flomax Prop: scd DIspo: check labs 6-16 ESBL organism- change to merrem. 6-17 cont abx; Ferdinand Jj MD, PhD.
--- NOTE | 2019-08-19 15:59 | NUR ---
Received order to set up IV antibiotics. Order placed in system. CM spoke to pt at bedside. Discussed need for IV abx. Pt signed choice for [facility]. CM explained to pt that [facility] will usually set up nursing either thru their company or a home health company. Pt states he was fine with either. IMM letter also discussed with pt. He verbalized understanding. Copy of letter given to pt. CM also informed pt that Dr. Wade gave instructions to follow up in [address] Wade's office information was printed and given to pt. Signed copy of choice letter and IMM placed in chart. Referral faxed to [facility] at [phone] / .
--- NOTE | 2019-08-19 18:07 | Diagnostic Imaging Report ---
Examination: Single AP view of the chest. COMPARISON: Chest two views 05/12/2019 INDICATION: PICC line placement IMPRESSION: 1. Lines and Tubes: Interval placement of right-sided PICC line which has its distal tip projecting in the mid SVC. 2. Lungs are well-inflated. No consolidation or effusion. 3. Mild prominence of the cardiac silhouette, which may be partly due to portable AP projection. Mild central vascular crowding. 4. No acute bony abnormalities. Signed by: Dr. Giorgi Grover M.D. on 08/19/2019 6:03 PM
[2019-08-19] MEDS: TAMSULOSIN HCL 0.4 MG CAP PO SCH (18:21)
--- NOTE | 2019-08-19 19:05 | NUR ---
Report given to floral department specialist. Respiration even and unlabored without SOB. PICC line to right upper arm intact with no s/s of infection. Denies pain. Call light in reach.
[2019-08-19] MEDS: SODIUM CHLORIDE FLUSH 10 ML SYR INJ PRN (19:50)
[2019-08-20 00:33] VITALS: BP 134/77
[2019-08-20] MEDS: MEROPENEM 500MG/ NS 50ML 50 ML IV SCH ×2 (03:44→13:05)
[2019-08-20 05:00] VITALS: BP 130/66
--- NOTE | 2019-08-20 07:31 | NUR ---
GAVE BEDSIDE SHIFT REPORT TO ONCOMING NURSE. CALL LIGHT WITHIN REACH. PATIENT IN BED
[2019-08-20 07:48] VITALS: BP 118/72
--- NOTE | 2019-08-20 08:30 | NUR ---
PICC line report faxed to [facility] at [phone]. Ana Maria with [facility] confirmed they have received it and referral from yesterday.
[2019-08-20 09:17] VITALS: BP 118/72
[2019-08-20] MEDS: FINASTERIDE 5 MG TAB PO SCH (09:44)
--- NOTE | 2019-08-20 10:00 | NUR ---
Patient given education about urinary catheter to leg bag and provided drainage bag to use during night time. Received return demonstration and verbalized understanding.
[2019-08-20 11:35] VITALS: BP 147/87
--- NOTE | 2019-08-20 11:35 | NUR ---
Yanet, nurse with [facility] will come to hospital today at 1330 to provide teaching at bedside.
--- NOTE | 2019-08-20 12:14 | Progress Note ---
DATE: SUBJECTIVE: Discussed with Dr. Wade. Please refer to chart for more information. REVIEW OF SYSTEMS: No nausea, vomiting, fever, chills, chest pain, shortness of breath, headache, rash, or dysuria. He has some postop pain which is apparently not significant per my discussion with the patient. PHYSICAL EXAMINATION: VITAL SIGNS: Temperature is 97.6, pulse is 84, respirations 20 and blood pressure 147/87. GENERAL: Alert and oriented, very pleasant, no acute distress. Ambulatory with a Decker catheter. CV: S1, S2. CHEST: Equal expansion. Clear to auscultation. No acute distress. ABDOMEN: Soft, nontender. No distention. HEENT: Moist. No pallor. No JVD. EXTREMITIES: Moves all. MEDICATIONS: From ID point of view, the patient is on meropenem. LABORATORY STUDIES: Urine culture; Klebsiella oxytoca, ESBL. IMAGING: The patient is status post PICC line placement. ASSESSMENT AND PLAN: 1. Urinary tract infection with ESBL, Klebsiella oxytoca. 2. Urinary retention. 3. Status post transurethral resection of bladder neck and Decker catheter placement by Urology. 4. Bladder diverticula with a plan for further surgeries in few weeks after infection resolved. 5. Continue with antibiotics for 2 to 3 weeks. Monitor the patient in the clinic. Follow with the labs. Discussed with Case Management regarding antibiotics. Please refer to the chart for more information. Dictated by Ronald Pulliam PA-C (Al) Michael Wade MD /MODL /[id number]
--- NOTE | 2019-08-20 15:08 | NUR ---
Yanet with [facility] is here to provide bedside teaching. Nursing will be done by [facility]. Per Yanet, a nurse will go out to pt's house tonight for first infusion. Pt's brother will also be available to teach tonight.
[2019-08-20] MEDS ORDERED: ONDANSETRON HCL 4 MG ORAL DISINTEGRATING TAB PO PRN (15:45)
--- NOTE | 2019-08-20 15:54 | NUR ---
D/C summary Principal dx: Urinary retention- urology consulted ESBL Klebsiella Oxytoca UTI- change to Merrem BPH- s/p cystoscopy and TURP? flomax SEcondary dx: BPH Prop: scd DIspo: check labs 6-16 ESBL organism- change to merrem. 6-17 cont abx; d/c home with IV abx stable f/u PCP 2 days; as directed; Marcella 1-2 weeks d/c>35mins Ferdinand Jj MD, PhD.
--- NOTE | 2019-08-20 16:48 | NUR ---
Discharge education given to the patient regarding follow-up visits with primary doctors, urologist and infectious disease. Verbalized understanding. Discharge packet provided. Right upper arm PICC line intact, in placed. Reinforced urinary catheter teaching done this morning and emptying and changing of leg bag with return demonstration. Urinary catheter leg bag placed and secured to leg. Awaiting for picket [employer]. Call light in reach.
[2019-08-20 16:52] VITALS: BP 144/85
--- NOTE | 2019-08-20 17:32 | NUR ---
Patient is transported via wheelchair to private vehicle. All personal belongings are taken.
--- NOTE | 2019-09-22 04:22 | Operative Report ---
DATE OF PROCEDURE: 08/17/2019 SURGEON: Sanford Goldman MD OPERATIONS PERFORMED: 1. Cystourethroscopy with transurethral resection of bladder neck contracture (separate procedure performed for the bladder neck contracture). 2. Cystourethroscopy with bilateral ureteral catheterization and retrograde ureteropyelography (separate procedure performed for hematuria and urinary tract infections). 3. Interpretation of retrograde ureteropyelography. 4. Interpretation of cystography. 5. Complicated urethral catheterization (separate procedure performed for the urinary retention). 6. Supervision of fluoroscopy, no radiologist present. ANESTHESIA: General. COMPLICATIONS: None. CLINICAL SUMMARY: Micheal Fulton is a complicated 79-year-old male with prior surgeries. He has an obstruction. We can place a Decker catheter. He is brought for the above procedures. He is aware of the risks of bleeding, infection, injury to adjacent structures, need for additional procedures and elected to proceed. OPERATIVE PROCEDURE IN DETAIL: Informed consent was verified. The patient was identified and taken to the operating room, placed on the cystoscopy table in supine position. Anesthesia was uneventfully begun. He was then carefully and gently repositioned in dorsal lithotomy position. All pressure points well padded. His genitalia were prepared and draped in usual sterile fashion. The cystoscope sheath with visual obturator in place. It was atraumatically inserted into the patient's urethra. 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 We went through the sphincteric region, which appeared relatively normal and through the prostate bed, which was significant for severe scarring and an obstructed bladder neck. We introduced the resectoscope and we utilized the Carrington knife to incise at the 5 and 7 o'clock position. This popping open the bladder neck and allowing a stent in the bladder. Panendoscopy revealed a very large diverticulum of the right posterior side of the bladder. The right ureteral orifice was displaced to the left of midline diverticulum. We somehow managed to cannulate both the ureter and retrograde ureteropyelograms were performed. Interpretation of retrograde ureteropyelography contrast was instilled in retrograde fashion bilaterally. There was fullness more on the right-hand side. On the left hand side, there was a , where the ureter drains through its intramural portion, most probably on the right-hand side. This may due to the distortion and the twisting of the bladder during the huge diverticulum. Nevertheless, relatively unobstructed drainage was observed bilaterally. Over the guidewire, a [place] tip Decker catheter was then placed, irrigated to and fro to ensure it worked properly. Contrast was injected and performed cystography. Interpretation of cystography, the patient has a huge diverticulum on the right-hand side. It distorts the bladder and rotates as well. The Decker was in good position and coiled within the patient's bladder. The patient's bladder was drained. Cystoscope was withdrawn. The patient was then uneventfully reversed from anesthesia, taken to recovery room in stable condition. There were no complications to the procedure. He tolerated the procedure well. Plans will be to monitor the patient during his hospital course and he will need to be scheduled for cystoscopy with placement of stents as well as a bladder diverticulectomy as an outpatient as a same-day admit from an outpatient basis. Sanford Goldman MD [place]/MODL /[id number]
== END 2019-08-20 17:32 | disposition home or self-care (01) | DRG 717 ==
LOC: FSED 16:10 → ERHOLD 21:05 → MED/SURG 22:45 → OBSVTOIN 08-17 08:06 → MED/SURG2 08-18 11:45
PROVIDERS: ADMIT Internal Medicine; ATTEND Internal Medicine
PROC: BT141ZZ Fluoroscopy of Kidneys, Ureters and Bladder using Low Osmolar Contrast (ICD-10-PCS; principal; 2019-08-17 11:30)
PROC: 0TBC8ZZ Excision of Bladder Neck, Via Natural or Artificial Opening Endoscopic (ICD-10-PCS; 2019-08-17 11:30)
DX: N40.1 Benign prostatic hyperplasia with lower urinary tract symptoms (principal); N39.0 Urinary tract infection, site not specified; Z16.12 Extended spectrum beta lactamase (ESBL) resistance; N13.8 Other obstructive and reflux uropathy; R33.8 Other retention of urine; B95.2 Enterococcus as the cause of diseases classified elsewhere; B96.1 Klebsiella pneumoniae [K. pneumoniae] as the cause of diseases classified elsewhere; N32.3 Diverticulum of bladder; N28.1 Cyst of kidney, acquired; R39.14 Feeling of incomplete bladder emptying; K62.3 Rectal prolapse; Z11.59 Encounter for screening for other viral diseases
CPT/HCPCS: 36415; 36569; 71045; 74420; 80048; 80053; 81001; 83735; 84100; 85025; 87086; 87186; 97139; 99284; C1758; G0378; J0696; J1940; J2001; J2175; J2405; J3010; J7050; U0002

== ENCOUNTER 2019-11-11 06:44 | Inpatient (IN) | payer MEDICARE, OTHER ==
[2019-11-06 12:47] LABS: BASOPHILS # (AUTO) 0.1 (0.0-0.1); BASOPHILS % 0.9 % (0.0-1.0); EOSINOPHILS # (AUTO) 0.1 (0.0-0.4); EOSINOPHILS % 1.6 % (0.0-6.0); HEMATOCRIT 42.6 % (38.2-49.6); HEMOGLOBIN 14.3 g/dL (14.0-18.0); LYMPHOCYTES # (AUTO) 2.4 (1.0-3.2); LYMPHOCYTES % 37.8 % (18.0-39.1); MEAN CORPUSCULAR HGB CONC 33.6 g/dL (31-35); MEAN CORPUSCULAR VOLUME 89.5 fL (81-99); MONOCYTES # (AUTO) 0.6 (0.2-0.8); MONOCYTES % 9.7 % (4.4-11.3); NEUTROPHILS # (AUTO) 3.2 (2.1-6.9); NEUTROPHILS % 49.5 % (38.7-80.0); PLATELET COUNT 230 x10e3/uL (140-360); RED BLOOD COUNT 4.76 x10e6/uL (4.3-5.7); RED CELL DISTRIBUTION WIDTH 13.6 % (11.7-14.4)
[2019-11-06 13:01] LABS: ANION GAP 16.1 mmol/L (8-16); BLOOD UREA NITROGEN 14 mg/dL (7-26); BUN/CREATININE RATIO 13 (6-25); CARBON DIOXIDE 20 mmol/L (22-29); CHLORIDE 109 mmol/L (98-107); CREATININE, SERUM 1.09 mg/dL (0.72-1.25); EST GLOMERULAR FILTRATION RATE > 60 ML/MIN (60-); GLUCOSE 91 mg/dL (74-118); POTASSIUM 4.1 mmol/L (3.5-5.1); SODIUM 141 mmol/L (136-145)
[2019-11-06 13:02] LABS: BILIRUBIN,URINE NEGATIVE (NEGATIVE); CLARITY,URINE SL CLOUDY (CLEAR); COLOR,URINE YELLOW (YELLOW); KETONES,URINE NEGATIVE (NEGATIVE); LEUKOCYTE ESTERASE ,URINE SMALL (NEGATIVE); NITRITE,URINE NEGATIVE (NEGATIVE); PROTEIN,URINE DIPSTICK 2+ (NEGATIVE); URINE UROBILINOGEN 0.2 mg/dL (0.2 - 1)
[2019-11-06 13:10] LABS: BACTERIA,URINE MODERATE /HPF; EPITHELIAL CELLS,URINE FEW /LPF; MUCUS,URINE FEW (RARE); WBC,URINE (MAN) 21-50 /HPF (0-5)
[~2019-11-11] VITALS: Ht 165.1 cm; Wt 67.1 kg
[~2019-11-11 06:44] MED LIST changes: +FINASTERIDE5 MG PO; +METHENAMINE HIPP1 GM PO
[2019-11-11] MEDS ORDERED: PIPER-TAZ 3.375 GM 50 ML ONE (07:26)
[2019-11-11] MEDS ORDERED: GENTAMICIN 80MG/NS 100 ML 200 ML IV ONE (07:26)
[2019-11-11] MEDS ORDERED: INDIGOTINDISULFONATE SODIUM 8 MG/ML AMP IJ ONE (10:59)
[2019-11-11] MEDS ORDERED: ONDANSETRON HCL INJ 2MG/ML 2ML 2 MG/ML VIAL IV PRN (13:15)
[2019-11-11] MEDS ORDERED: NALOXONE HCL INJ 0.4 MG/ML AMP IV PRN (13:15)
[2019-11-11] MEDS ORDERED: DIPHENHYDRAMINE HCL INJ 50 MG/ML VIAL IM PRN (13:15)
[2019-11-11] MEDS ORDERED: MORPHINE SULFATE 1 MG/ML 30ML PCA IV PRN (13:15)
[2019-11-11] MEDS ORDERED: FENTANYL CITRATE/PF 100MCG/2 ML INJ ONE ×2 (13:38→21:44)
[2019-11-11] MEDS ORDERED: MORPHINE SULFATE INJ 4 MG/ML INJ 1ML ONE (13:59)
[2019-11-11] MEDS ORDERED: MORPHINE SULFATE 1 MG/ML 30ML PCA ONE (15:28)
[2019-11-11 16:19] VITALS: BP 96/67
[2019-11-11 16:22] VITALS: BP 96/67
[2019-11-11] MEDS: DOCUSATE SODIUM 100 MG CAP PO SCH (16:29)
[2019-11-11] MEDS: D5.45%NS/KCL 20MEQ 1,000 ML IV SCH (17:04)
[2019-11-11] MEDS: PIPERACILLIN/TAZO 2.25 GM 50 ML IV SCH (17:04)
[2019-11-11 17:22] VITALS: BP 96/67
[2019-11-11 18:15] LABS: BASOPHILS % 0.2 % (0.0-1.0); HEMATOCRIT 43.1 % (38.2-49.6); HEMOGLOBIN 13.8 g/dL (14.0-18.0); LYMPHOCYTES # (AUTO) 0.8 (1.0-3.2); LYMPHOCYTES % 4.8 % (18.0-39.1); MEAN CORPUSCULAR HEMOGLOBIN 30.4 pg (28-32); MEAN CORPUSCULAR VOLUME 94.9 fL (81-99); MONOCYTES # (AUTO) 1.4 (0.2-0.8); MONOCYTES % 8.4 % (4.4-11.3); NEUTROPHILS # (AUTO) 14.2 (2.1-6.9); NEUTROPHILS % 86.1 % (38.7-80.0); PLATELET COUNT 174 x10e3/uL (140-360); RED BLOOD COUNT 4.54 x10e6/uL (4.3-5.7)
[2019-11-11 18:27] LABS: ANION GAP 20.1 mmol/L (8-16); BLOOD UREA NITROGEN 15 mg/dL (7-26); BUN/CREATININE RATIO 14 (6-25); CALCIUM 8.3 mg/dL (8.4-10.2); CARBON DIOXIDE 15 mmol/L (22-29); CHLORIDE 108 mmol/L (98-107); CREATININE, SERUM 1.06 mg/dL (0.72-1.25); EST GLOMERULAR FILTRATION RATE > 60 ML/MIN (60-); GLUCOSE 121 mg/dL (74-118); POTASSIUM 4.1 mmol/L (3.5-5.1); SODIUM 139 mmol/L (136-145)
[2019-11-11] MEDS ORDERED: ACETAMINOPHEN 325 MG TAB PO PRN (19:15)
[2019-11-11 20:00] VITALS: BP 89/63
[2019-11-11] MEDS ORDERED: PROPOFOL IV EMULSION 10 MG/ML 20 ML VIAL ONE (21:27)
[2019-11-11] MEDS ORDERED: PHENYLEPHRINE HCL 1% 10 MG/ML VIAL ONE (21:27)
[2019-11-11] MEDS ORDERED: DEXAMETHASONE SOD PHOS INJ 4 MG/ML VIAL ONE (21:27)
[2019-11-11] MEDS ORDERED: LIDOCAINE HCL 2% LOCAL INJ 5 ML SDV VIAL INJ ONE (21:27)
[2019-11-11] MEDS ORDERED: ONDANSETRON HCL INJ 2MG/ML 2ML 2 MG/ML VIAL ONE (21:27)
[2019-11-11] MEDS ORDERED: KETOROLAC TROMETHAMINE 30 MG/ML VIAL ONE (21:27)
[2019-11-11] MEDS ORDERED: SEVOFLURANE INHAL SOLN 250 ML PEN BTL ONE (21:27)
[2019-11-11] MEDS ORDERED: HYDRALAZINE HCL 20 MG/ML VIAL ONE (21:27)
[2019-11-11] MEDS ORDERED: MIDAZOLAM HCL 2 MG/2 ML VIAL ONE (21:44)
[2019-11-12] VITALS (7 sets, daily range): BP systolic 93–126; BP diastolic 53–99
[2019-11-12] MEDS: D5.45%NS/KCL 20MEQ 1,000 ML IV SCH ×4 (01:00→23:36)
[2019-11-12] MEDS: PIPERACILLIN/TAZO 2.25 GM 50 ML IV SCH ×3 (02:00→17:01)
[2019-11-12 05:36] LABS: BASOPHILS % 0.2 % (0.0-1.0); HEMATOCRIT 34.5 % (38.2-49.6); HEMOGLOBIN 11.1 g/dL (14.0-18.0); LYMPHOCYTES # (AUTO) 2.2 (1.0-3.2); LYMPHOCYTES % 17.5 % (18.0-39.1); MEAN CORPUSCULAR HEMOGLOBIN 30.1 pg (28-32); MEAN CORPUSCULAR HGB CONC 32.2 g/dL (31-35); MEAN CORPUSCULAR VOLUME 93.5 fL (81-99); MONOCYTES # (AUTO) 1.3 (0.2-0.8); MONOCYTES % 10.5 % (4.4-11.3); NEUTROPHILS # (AUTO) 9.1 (2.1-6.9); NEUTROPHILS % 71.3 % (38.7-80.0); PLATELET COUNT 193 x10e3/uL (140-360); RED BLOOD COUNT 3.69 x10e6/uL (4.3-5.7); RED CELL DISTRIBUTION WIDTH 13.9 % (11.7-14.4)
[2019-11-12 06:06] LABS: ANION GAP 14.5 mmol/L (8-16); CALCIUM 7.7 mg/dL (8.4-10.2); CREATININE, SERUM 1.37 mg/dL (0.72-1.25); POTASSIUM 4.5 mmol/L (3.5-5.1)
[2019-11-12] MEDS ORDERED: ACETAMINOPHEN/CODEINE 300MG - 30MG TAB PO PRN (09:15)
[2019-11-12] MEDS: FINASTERIDE 5 MG TAB PO SCH (09:56)
[2019-11-12] MEDS: DOCUSATE SODIUM 100 MG CAP PO SCH ×2 (09:56→16:58)
[2019-11-12] MEDS: TAMSULOSIN HCL 0.4 MG CAP PO SCH (16:58)
[2019-11-12] MEDS ORDERED: DOCUSATE SODIUM 100 MG CAP PO SCH (17:00)
[2019-11-13] VITALS (9 sets, daily range): BP systolic 109–126; BP diastolic 59–73
[2019-11-13] MEDS: PIPERACILLIN/TAZO 2.25 GM 50 ML IV SCH ×3 (01:28→18:22)
[2019-11-13 06:29] LABS: BLOOD UREA NITROGEN 10 mg/dL (7-26); BUN/CREATININE RATIO 9 (6-25); CARBON DIOXIDE 16 mmol/L (22-29); CHLORIDE 109 mmol/L (98-107); EST GLOMERULAR FILTRATION RATE > 60 ML/MIN (60-); GLUCOSE 96 mg/dL (74-118); SODIUM 137 mmol/L (136-145)
[2019-11-13 06:48] LABS: BASOPHILS # (AUTO) 0.1 (0.0-0.1); BASOPHILS % 0.8 % (0.0-1.0); EOSINOPHILS # (AUTO) 0.2 (0.0-0.4); EOSINOPHILS % 2.6 % (0.0-6.0); HEMATOCRIT 31.4 % (38.2-49.6); HEMOGLOBIN 10.4 g/dL (14.0-18.0); LYMPHOCYTES # (AUTO) 1.6 (1.0-3.2); LYMPHOCYTES % 20.7 % (18.0-39.1); MEAN CORPUSCULAR HEMOGLOBIN 31.7 pg (28-32); MEAN CORPUSCULAR HGB CONC 33.1 g/dL (31-35); MEAN CORPUSCULAR VOLUME 95.7 fL (81-99); NEUTROPHILS # (AUTO) 4.8 (2.1-6.9); NEUTROPHILS % 62.6 % (38.7-80.0); PLATELET COUNT 164 x10e3/uL (140-360); RED BLOOD COUNT 3.28 x10e6/uL (4.3-5.7); RED CELL DISTRIBUTION WIDTH 13.7 % (11.7-14.4)
[2019-11-13] MEDS: FINASTERIDE 5 MG TAB PO SCH (08:02)
[2019-11-13] MEDS: DOCUSATE SODIUM 100 MG CAP PO SCH ×2 (08:02→16:59)
[2019-11-13] MEDS: DEXTROSE 5%/0.45% SOD CHL 1,000 ML IV SCH ×2 (14:30→23:20)
[2019-11-13] MEDS: TAMSULOSIN HCL 0.4 MG CAP PO SCH (16:59)
[2019-11-14] MEDS: PIPERACILLIN/TAZO 2.25 GM 50 ML IV SCH ×3 (02:05→17:02)
[2019-11-14 06:07] LABS: BASOPHILS # (AUTO) 0.1 (0.0-0.1); EOSINOPHILS # (AUTO) 0.4 (0.0-0.4); EOSINOPHILS % 3.9 % (0.0-6.0); HEMATOCRIT 28.9 % (38.2-49.6); HEMOGLOBIN 9.9 g/dL (14.0-18.0); MEAN CORPUSCULAR HEMOGLOBIN 33.3 pg (28-32); MEAN CORPUSCULAR HGB CONC 34.3 g/dL (31-35); MEAN CORPUSCULAR VOLUME 97.3 fL (81-99); MONOCYTES # (AUTO) 1.1 (0.2-0.8); MONOCYTES % 12.4 % (4.4-11.3); NEUTROPHILS # (AUTO) 5.4 (2.1-6.9); NEUTROPHILS % 60.3 % (38.7-80.0); PLATELET COUNT 145 x10e3/uL (140-360); RED BLOOD COUNT 2.97 x10e6/uL (4.3-5.7); RED CELL DISTRIBUTION WIDTH 13.9 % (11.7-14.4)
[2019-11-14] MEDS: DEXTROSE 5%/0.45% SOD CHL 1,000 ML IV SCH ×2 (06:21→16:30)
[2019-11-14 06:30] LABS: ANION GAP 15.6 mmol/L (8-16); BLOOD UREA NITROGEN 7 mg/dL (7-26); BUN/CREATININE RATIO 7 (6-25); CALCIUM 7.9 mg/dL (8.4-10.2); CARBON DIOXIDE 21 mmol/L (22-29); CHLORIDE 105 mmol/L (98-107); CREATININE, SERUM 0.98 mg/dL (0.72-1.25); EST GLOMERULAR FILTRATION RATE > 60 ML/MIN (60-); GLUCOSE 124 mg/dL (74-118); POTASSIUM 4.6 mmol/L (3.5-5.1); SODIUM 137 mmol/L (136-145)
[2019-11-14] MEDS ORDERED: DOCUSATE SODIUM 100 MG CAP PO PRN (06:30)
[2019-11-14 08:00] VITALS: BP 137/72
[2019-11-14 08:32] VITALS: BP 137/72
[2019-11-14] MEDS ORDERED: SENNOSIDES 8.6 MG TAB PO SCH (09:00)
[2019-11-14] MEDS: DOCUSATE SODIUM 100 MG CAP PO SCH ×2 (09:15→17:02)
[2019-11-14] MEDS: FINASTERIDE 5 MG TAB PO SCH (09:15)
[2019-11-14 12:00] VITALS: BP 135/69
[2019-11-14 16:00] VITALS: BP 131/63
[2019-11-14] MEDS: TAMSULOSIN HCL 0.4 MG CAP PO SCH (17:02)
[2019-11-14 21:00] VITALS: BP 151/84
[2019-11-14 22:09] VITALS: BP 151/84
[2019-11-15] VITALS (8 sets, daily range): BP systolic 123–144; BP diastolic 62–87
[2019-11-15] MEDS: PIPERACILLIN/TAZO 2.25 GM 50 ML IV SCH ×3 (02:00→18:08)
[2019-11-15 05:34] LABS: BASOPHILS # (AUTO) 0.1 (0.0-0.1); BASOPHILS % 0.7 % (0.0-1.0); EOSINOPHILS # (AUTO) 0.4 (0.0-0.4); EOSINOPHILS % 5.3 % (0.0-6.0); HEMATOCRIT 29.8 % (38.2-49.6); HEMOGLOBIN 9.9 g/dL (14.0-18.0); LYMPHOCYTES # (AUTO) 1.6 (1.0-3.2); LYMPHOCYTES % 22.1 % (18.0-39.1); MEAN CORPUSCULAR HEMOGLOBIN 31.4 pg (28-32); MEAN CORPUSCULAR HGB CONC 33.2 g/dL (31-35); MEAN CORPUSCULAR VOLUME 94.6 fL (81-99); MONOCYTES # (AUTO) 0.9 (0.2-0.8); MONOCYTES % 12.3 % (4.4-11.3); NEUTROPHILS # (AUTO) 4.4 (2.1-6.9); NEUTROPHILS % 59.1 % (38.7-80.0); PLATELET COUNT 189 x10e3/uL (140-360); RED BLOOD COUNT 3.15 x10e6/uL (4.3-5.7); RED CELL DISTRIBUTION WIDTH 13.5 % (11.7-14.4)
[2019-11-15 05:49] LABS: ANION GAP 14.4 mmol/L (8-16); BLOOD UREA NITROGEN 7 mg/dL (7-26); BUN/CREATININE RATIO 7 (6-25); CALCIUM 8.2 mg/dL (8.4-10.2); CARBON DIOXIDE 21 mmol/L (22-29); CHLORIDE 106 mmol/L (98-107); CREATININE, SERUM 1.04 mg/dL (0.72-1.25); EST GLOMERULAR FILTRATION RATE > 60 ML/MIN (60-); GLUCOSE 102 mg/dL (74-118); POTASSIUM 4.4 mmol/L (3.5-5.1); SODIUM 137 mmol/L (136-145)
[2019-11-15] MEDS: DOCUSATE SODIUM 100 MG CAP PO SCH ×2 (07:55→18:08)
[2019-11-15] MEDS: FINASTERIDE 5 MG TAB PO SCH (09:07)
[2019-11-15] MEDS: DEXTROSE 5%/0.45% SOD CHL 1,000 ML IV SCH (13:16)
[2019-11-15] MEDS: TAMSULOSIN HCL 0.4 MG CAP PO SCH (18:08)
[2019-11-16 00:23] VITALS: BP 131/72
[2019-11-16] MEDS: PIPERACILLIN/TAZO 2.25 GM 50 ML IV SCH ×2 (01:55→09:28)
[2019-11-16 05:50] VITALS: BP 142/78
[2019-11-16 07:45] VITALS: BP 149/74
[2019-11-16 07:47] VITALS: BP 149/74
[2019-11-16] MEDS: DOCUSATE SODIUM 100 MG CAP PO SCH (08:26)
[2019-11-16] MEDS: FINASTERIDE 5 MG TAB PO SCH (08:26)
[2019-11-16] MEDS: DEXTROSE 5%/0.45% SOD CHL 1,000 ML IV SCH (09:28)
[2019-11-16] MEDS ORDERED: TYLENOL # 31 EA PO (10:39)
[2019-11-16] MEDS ORDERED: BACTRIM DS TAB1 EACH PO (10:40)
[2019-11-16] MEDS ORDERED: ONDANSETRON HCL 4 MG ORAL DISINTEGRATING TAB PO PRN (11:00)
[2019-11-16 11:42] VITALS: BP 186/61
[2019-11-16 11:43] VITALS: BP 148/83
== END 2019-11-16 11:51 | disposition home or self-care (01) | DRG 654 ==
LOC: OR 06:44 → PACU V 13:12 → MED/SURG 16:13
PROVIDERS: ADMIT Internal Medicine; ATTEND Internal Medicine
PROC: 0TBB0ZZ Excision of Bladder, Open Approach (ICD-10-PCS; 2019-11-11)
PROC: 0TJB8ZZ Inspection of Bladder, Via Natural or Artificial Opening Endoscopic (ICD-10-PCS; principal; 2019-11-11 09:00)
DX: N32.3 Diverticulum of bladder (principal); N17.9 Acute kidney failure, unspecified; N13.8 Other obstructive and reflux uropathy; N40.1 Benign prostatic hyperplasia with lower urinary tract symptoms; R35.0 Frequency of micturition; R39.14 Feeling of incomplete bladder emptying; R35.1 Nocturia; R33.8 Other retention of urine; R39.15 Urgency of urination; N52.9 Male erectile dysfunction, unspecified; Z11.59 Encounter for screening for other viral diseases
CPT/HCPCS: 36415; 71046; 76000; 80048; 81001; 82948; 83735; 85025; 87086; 88304; 88305; 88342; 93005; 96361; 97139; C1758; J0360; J1100; J1580; J1885; J2001; J2250; J2270; J2370; J2405; J2543; J3010; U0002

== ENCOUNTER → 2019-12-02 | Outpatient (CLI) | payer MEDICARE, OTHER ==
[~2019-12-02] MED LIST changes: +BACTRIM DS TAB1 EACH PO; +SODIUM CHLORIDE 0.9% 500ML 500 ML ONE; +TYLENOL # 31 EA PO
--- NOTE | 2019-12-03 12:00 | Diagnostic Imaging Report ---
CT of the pelvis with contrast TECHNIQUE: CT of the pelvis without intravenous contrast and WITH urinary contrast. Dose modulation, iterative reconstruction, and/or weight-based adjustment of the mA/kV was utilized to reduce the radiation dose to as low as reasonably achievable. Cystogram CONTRAST: 200 cc of a mixture of 50 cc of Isovue-370 and 500 cc of saline via the indwelling Decker catheter ORAL CONTRAST: None RADIATION DOSE: Total DLP: 631 mGy*cm COMPLICATIONS: None Patient was unable to tolerate full bladder distention and had severe pain after instillation of only 200 cc of the 550 cc mixture, this limits evaluation. INDICATION: ^[id number] ^[id number] ^Diverticulum of bladder. COMPARISON: CT dated 02/26/2012. FINDINGS: PELVIC ORGANS/BLADDER: Indwelling Decker catheter is noted. On noncontrast imaging no stone is identified. Contrast is then administered via the Decker catheter within the urinary bladder. Urinary bladder wall thickening is noted. There is a paramidline right posterior and superior diverticulum that fills with contrast. It measures approximately 2.2 x 2.1 cm (axial with contrast series, image 23) measured 1.7 x 1.5 cm in 2012. In the right posterior/lateral pelvis there is a soft tissue density that measures approximately 5.9 x 3.7 cm. This collection does not demonstrate intraluminal contrast on cystogram images. However in 2012 imaging this region measured approximately 8.3 x 3.9 cm and did demonstrate contrast filling from the urinary bladder suggesting a large diverticulum. Please note the limitations stated above as patient was unable to tolerate further filling of his urinary bladder via the Decker catheter. If the entire 500 cc was instilled this may have filled into this region. The urinary bladder does demonstrates circumferential wall thickening and irregular contours. No definite extravasation of contrast is identified. Contrast is identified refluxing into the right ureter. PERITONEUM/RETROPERITONEUM: No free air or fluid. Previous identified inguinal hernias have resolved. LYMPH NODES: No lymphadenopathy. VESSELS: Unremarkable. GI TRACT: Visualized bowel loops demonstrate significant diverticuli of the sigmoid colon without definite surrounding inflammatory change. Assessment for wall thickening is limited. No adjacent fluid collection is noted. Normal appendix is noted. At the superior margin of the image volume there is a focal area of infiltration and mesenteric lymphadenopathy, similar to CT from 2012. Visualized bowel loops are not dilated. BONES AND SOFT TISSUES: Infraumbilical midline scar is noted. No acute osseous abnormality. 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 IMPRESSION: 1. Post surgical changes within the pelvis with indwelling Decker catheter. Urinary bladder demonstrate circumferential wall thickening mild surrounding inflammatory change. No definite extravasation of contrast is identified. 2. There is a definite small posterior diverticulum measuring up to 2.3 cm to the right of the midline, increased in size compared to CT from 2011. 3. The larger previously noted right posterior lateral pelvic diverticulum is not visualized with intraluminal contrast during this examination however evaluation is limited due to incomplete distention of the urinary bladder as described above. Additional considerations for lack of filling of contrast may relate to wall thickening or placement of Decker catheter. 4. Colonic diverticulosis. Signed by: Darin Ivory MD on 12/03/2019 11:57 AM
== END ==
LOC: CT 13:16
PROVIDERS: ATTEND Urology
DX: N32.3 Diverticulum of bladder (principal)
CPT/HCPCS: 72194; J7040

== ENCOUNTER → 2020-06-03 | Day surgery (SDC) | payer MEDICARE ==
[2020-05-31 10:04] LABS: BASOPHILS # (AUTO) 0.1 (0.0-0.1); BASOPHILS % 1.2 % (0.0-1.0); EOSINOPHILS # (AUTO) 0.1 (0.0-0.4); EOSINOPHILS % 2.4 % (0.0-6.0); HEMATOCRIT 39.3 % (38.2-49.6); HEMOGLOBIN 11.5 g/dL (14.0-18.0); LYMPHOCYTES # (AUTO) 2.3 (1.0-3.2); LYMPHOCYTES % 38.9 % (18.0-39.1); MEAN CORPUSCULAR HEMOGLOBIN 24.4 pg (28-32); MEAN CORPUSCULAR HGB CONC 29.3 g/dL (31-35); MEAN CORPUSCULAR VOLUME 83.4 fL (81-99); MONOCYTES # (AUTO) 0.6 (0.2-0.8); MONOCYTES % 10.3 % (4.4-11.3); NEUTROPHILS # (AUTO) 2.7 (2.1-6.9); NEUTROPHILS % 46.7 % (38.7-80.0); PLATELET COUNT 257 x10e3/uL (140-360); RED BLOOD COUNT 4.71 x10e6/uL (4.3-5.7); RED CELL DISTRIBUTION WIDTH 16.4 % (11.7-14.4)
[2020-05-31 10:27] LABS: ANION GAP 10.8 mmol/L (8-16); BLOOD UREA NITROGEN 19 mg/dL (7-26); BUN/CREATININE RATIO 18 (6-25); CALCIUM 9.4 mg/dL (8.4-10.2); CARBON DIOXIDE 27 mmol/L (22-29); CHLORIDE 106 mmol/L (98-107); CREATININE, SERUM 1.06 mg/dL (0.72-1.25); EST GLOMERULAR FILTRATION RATE > 60 ML/MIN (60-); GLUCOSE 109 mg/dL (74-118); POTASSIUM 4.8 mmol/L (3.5-5.1); SODIUM 139 mmol/L (136-145)
[~2020-06-03] MED LIST changes: +B&O 60MG R/S 60 MG SUPP PR ONE; +CEFTRIAXONE SOD 1 GM VIAL ONE; +FENTANYL CITRATE/PF 100MCG/2 ML INJ ONE; +GENTAMICIN 80MG/NS 100 ML 200 ML IV ONE; +IOPAMIDOL 300MG/ML 50ML INFUS..BTL IV ONE; +LEVOFLOXACIN250 MG PO; +SODIUM CHLORIDE 0.9% 1000ML 1,000 ML ONE; -SODIUM CHLORIDE 0.9% 500ML 500 ML ONE; +SODIUM CHLORIDE 0.9% 50ML 50 ML ONE
[2020-06-03 09:25] VITALS: BP 149/75
== END | disposition home or self-care (01) ==
LOC: OR 05:24
PROVIDERS: ATTEND Urology
DX: N32.0 Bladder-neck obstruction (principal); N39.0 Urinary tract infection, site not specified; N40.1 Benign prostatic hyperplasia with lower urinary tract symptoms; R35.1 Nocturia; R33.8 Other retention of urine; R39.15 Urgency of urination; R39.12 Poor urinary stream; N32.81 Overactive bladder; R80.9 Proteinuria, unspecified; N28.1 Cyst of kidney, acquired; N43.3 Hydrocele, unspecified; N52.9 Male erectile dysfunction, unspecified; I25.10 Atherosclerotic heart disease of native coronary artery without angina pectoris; R00.1 Bradycardia, unspecified; R01.1 Cardiac murmur, unspecified; I10 Essential (primary) hypertension; Z01.810 Encounter for preprocedural cardiovascular examination; Z01.812 Encounter for preprocedural laboratory examination; Z20.822 Contact with and (suspected) exposure to COVID-19
CPT/HCPCS: 36415; 52005; 52500; 74420; 80048; 85025; 93005; C1758; J0696; J1580; J3010; J7030; Q9967; U0002

== ENCOUNTER → 2020-06-20 | Outpatient (CLI) | payer MEDICARE ==
[~2020-06-20] MED LIST changes: -B&O 60MG R/S 60 MG SUPP PR ONE; -CEFTRIAXONE SOD 1 GM VIAL ONE; -FENTANYL CITRATE/PF 100MCG/2 ML INJ ONE; -GENTAMICIN 80MG/NS 100 ML 200 ML IV ONE; -IOPAMIDOL 300MG/ML 50ML INFUS..BTL IV ONE; -SODIUM CHLORIDE 0.9% 1000ML 1,000 ML ONE; +SODIUM CHLORIDE 0.9% 500ML 500 ML ONE; -SODIUM CHLORIDE 0.9% 50ML 50 ML ONE
== END ==
LOC: CT 07:58
PROVIDERS: ATTEND Urology
DX: N32.0 Bladder-neck obstruction (principal); K57.90 Diverticulosis of intestine, part unspecified, without perforation or abscess without bleeding
CPT/HCPCS: 72193; J7040